=== PATIENT | male | born 1945 | race Caucasian/White ===

== ENCOUNTER → 2017-11-25 | Outpatient (CLI) | payer MEDICARE | LOC: M PLARAD 10:21 | DX: C34.11 Malignant neoplasm of upper lobe, right bronchus or lung (principal) | CPT/HCPCS: 78815 ==

== ENCOUNTER 2019-01-05 17:22 | Emergency (ER) | payer OTHER, MEDICARE ==
[~2019-01-05] VITALS: Ht 172.7 cm; Wt 91.5 kg
[2019-01-05] MEDS ORDERED: ASPI81CH33 PO (17:47)
[2019-01-05] MEDS ORDERED: ALBU83IN INH (17:47)
[2019-01-05] MEDS ORDERED: DICL1GEL3 TOP (17:47)
[2019-01-05] MEDS ORDERED: BUPR15TASR PO (17:47)
[2019-01-05] MEDS ORDERED: SYMB16INH INH (17:47)
[2019-01-05] MEDS ORDERED: THEO400T4 PO (17:58)
[2019-01-05] MEDS ORDERED: METO1TAB7 PO (17:58)
[2019-01-05] MEDS ORDERED: SPIR1CAP INH (17:58)
[2019-01-05] MEDS ORDERED: TERA2CAP3 PO (17:58)
[2019-01-05] MEDS ORDERED: ROSU20TA4 PO (17:58)
[2019-01-05] MEDS ORDERED: MONT10TA2 PO (17:58)
[2019-01-05] MEDS ORDERED: ENAL20TA PO (17:58)
[2019-01-05] MEDS ORDERED: HYDR12.55 PO (17:58)
[2019-01-05] MEDS ORDERED: METH75TA PO (17:58)
[2019-01-05] MEDS ORDERED: PRIM50TA6 PO (17:58)
[2019-01-05] MEDS ORDERED: HYDR-4514 PO (17:58)
[2019-01-05] MEDS ORDERED: FLUO0.0216 TOP (17:58)
[2019-01-05] MEDS ORDERED: UREA20CR4 EX (17:58)
[2019-01-05 18:22] LABS: BASO % 0.5 % (0.0-1.0); EOS # 0.3 10^3/uL (0.0-0.50); EOS % 3.5 % (0.0-3.0); HEMATOCRIT 38.5 % (42.0-52.0); HEMOGLOBIN 12.9 g/dl (13.5-17.5); LYMPH # 1.2 10^3/uL (1.5-4.5); LYMPH % 15.9 % (24.0-44.0); MEAN CORPUSCULAR HEMOGLOBIN 31.1 pg (27.0-33.0); MEAN CORPUSCULAR HGB CONC 33.5 g/dl (32.0-36.5); MEAN CORPUSCULAR VOLUME 92.8 fl (80.0-96.0); MONO # 0.8 10^3/uL (0.0-0.8); MONO % 10.9 % (0.0-5.0); NEUTROPHILS # 5.1 10^3/uL (1.8-7.7); NEUTROPHILS % 68.8 % (36.0-66.0); PLATELET COUNT, AUTOMATED 146 10^3/uL (150-450); RED BLOOD COUNT 4.15 10^6/uL (4.30-6.10); WHITE BLOOD COUNT 7.4 10^3/uL (4.0-10.0)
[2019-01-05 18:39] LABS: INR 0.97; PARTIAL THROMBOPLASTIN TIME 26.9 SECONDS (25.4-37.6)
[2019-01-05 18:48] LABS: CALCIUM LEVEL 7.9 MG/DL (8.8-10.2); CREATININE FOR GFR 2.04 MG/DL (0.70-1.30); GLOMERULAR FILTRATION RATE 34.4 (>42)
--- NOTE | 2019-01-05 19:17 | REPVR ---
EXAM: US Duplex Right Upper Extremity Veins, Limited EXAM DATE/TIME: 01/05/2019 6:33 PM CLINICAL HISTORY: 73 years old, male; Pain; Leg, upper; Right; Additional info: Swelling pain lower leg TECHNIQUE: Imaging protocol: Real-time Duplex ultrasound of the Right Upper Extremity with 2-D aguilar scale, color Doppler flow and spectral waveform analysis. Limited exam focused on the right upper extremity veins. COMPARISON: No relevant prior studies available. FINDINGS: Right deep veins: Unremarkable. Axillary and brachial veins are patent throughout without thrombus. Normal Doppler waveforms. Normal compressibility and/or augmentation response. Visualized internal jugular and subclavian veins are patent. Right superficial veins: Unremarkable. Visualized cephalic and basilic veins are patent without thrombus. Soft tissues: Unremarkable. IMPRESSION: No acute findings. No evidence of deep vein thrombosis. Electronically signed by: Mervat Friedman On 01/05/2019 19:17:08 PM
[2019-01-05 19:45] VITALS: BP 142/73
--- NOTE | 2019-01-07 06:56 | ECGEPIP ---
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 Order Number: [id number] Reading MD: Bora Root Measurements Intervals [place] Rate: 90 P: [place]: 0 QRS: 64 QRSD: 94 T: 52 QT: 336 QTc: 413 Interpretive Statements SINUS RHYTHM WITH FREQUENT ATRIAL PREMATURE COMPLEXES ECTOPY NEW COMPARED TO 08/20/13 Electronically Signed On 01-07-2019 6:56:16 EDT by Bora Root
== END 2019-01-05 19:49 | disposition home or self-care (01) ==
LOC: M ED 17:22
DX: R60.0 Localized edema (principal); I10 Essential (primary) hypertension; J44.9 Chronic obstructive pulmonary disease, unspecified; G47.30 Sleep apnea, unspecified; E78.00 Pure hypercholesterolemia, unspecified; F33.9 Major depressive disorder, recurrent, unspecified; F41.9 Anxiety disorder, unspecified; Z79.899 Other long term (current) drug therapy; Z79.82 Long term (current) use of aspirin; Z88.1 Allergy status to other antibiotic agents; Z88.2 Allergy status to sulfonamides; Z87.891 Personal history of nicotine dependence

== ENCOUNTER 2019-12-30 10:19 | Inpatient (IN) | payer OTHER ==
[~2019-12-30] VITALS: Ht 172.7 cm; Wt 86.4 kg
[~2019-12-30 10:19] MED LIST: ALBU83IN INH; ASPI81CH33 PO; BUPR15TASR PO; DICL1GEL3 TOP; ENAL20TA PO; FLUO0.0216 TOP; HYDR-4514 PO; HYDR12.55 PO; METH750T2 PO; METO1TAB7 PO; MONT10TA4 PO; PRIM50TA6 PO; ROSU20TA5 PO; SPIR1CAP INH; SYMB16INH INH; TERA2CAP3 PO; THEO400T4 PO; UREA20CR4 EX
[2019-12-30] MEDS ORDERED: METOPROLOL SUCC (TopROL XL) 50MG **XL** TAB PO ONE (10:45)
[2019-12-30] MEDS ORDERED: methylPREDNISolone INJ 125 MG/2 ML VIAL (J2930) IV ONE (11:00)
[2019-12-30] MEDS: COMBIVENT RESPIMAT 100-20MCG INHALER 4GM INH SCH ×3 (11:00→19:27)
[2019-12-30] MEDS ORDERED: IPRATROPIUM 0.5MG/ALBUTEROL 2.5MG INH SOL UD 3ML (DUONEB)(J7620) NEB ONE (11:00)
[2019-12-30 11:05] LABS: BASO % 0.1 % (0.0-1.0); EOS # 0.1 10^3/uL (0.0-0.5); EOS % 0.8 % (0.0-3.0); HEMOGLOBIN 14.8 g/dl (13.5-17.5); LYMPH # 0.6 10^3/uL (1.5-5.0); LYMPH % 7.8 % (24.0-44.0); MEAN CORPUSCULAR HEMOGLOBIN 31.4 pg (27.0-33.0); MEAN CORPUSCULAR HGB CONC 31.5 g/dl (32.0-36.5); MEAN CORPUSCULAR VOLUME 99.6 fl (80.0-96.0); MONO # 0.7 10^3/uL (0.0-0.8); MONO % 9.1 % (0.0-5.0); NEUTROPHILS # 6.3 10^3/uL (1.5-8.5); NEUTROPHILS % 81.7 % (36.0-66.0); PLATELET COUNT, AUTOMATED 191 10^3/uL (150-450); RED BLOOD COUNT 4.72 10^6/uL (4.30-6.10); WHITE BLOOD COUNT 7.7 10^3/uL (4.0-10.0)
[2019-12-30 11:15] LABS: INR 1.02; PROTHROMBIN TIME 13.1 SECONDS (11.8-14.0)
--- NOTE | 2019-12-30 11:23 | REP ---
PORTABLE CHEST X-RAY: Single view. HISTORY: Dyspnea and cough. Comparison study August 20, 2013. FINDINGS: Monitoring electrodes overlie the chest. A right sided ventriculoperitoneal shunt catheter is again seen coursing over the right chest. There is a granulomatous calcification along the right lateral chest wall. There are areas of pleural thickening again noted bilaterally. There are old healed rib fractures anteriorly on the left. The heart is not enlarged. No acute infiltrate is seen. No pleural effusion seen. Pulmonary vasculature is not increased. IMPRESSION: No active cardiopulmonary disease. Electronically Signed by Chris Dietz MD 12/30/2019 12:57 P
[2019-12-30 11:37] LABS: ALBUMIN 3.3 GM/DL (3.2-5.2); BILIRUBIN,DIRECT 0.2 MG/DL (0.0-0.2); BILIRUBIN,TOTAL 0.3 MG/DL (0.2-1.0); C REACTIVE PROTEIN QUANTITATIV 3.31 MG/DL (0.00-0.30); CALCIUM LEVEL 8.6 MG/DL (8.8-10.2); CK-MB VALUE MASS 2.4 NG/ML (<3.6); CREATININE FOR GFR 1.46 MG/DL (0.70-1.30); GLOMERULAR FILTRATION RATE 50.5 (>42); MB/CK RELATIVE INDEX 6.15 (< OR =4); POTASSIUM SERUM 3.8 MEQ/L (3.5-5.1); THYROID STIMULATING HORMONE 1.49 uIU/ML (0.358-3.740); TOTAL PROTEIN 6.9 GM/DL (6.4-8.2); TROPONIN I 0.03 NG/ML (< 0.10)
[2019-12-30] MEDS ORDERED: ACETAMINOPHEN TAB 650MG DOSE (2X325MG) PO PRN (12:00)
[2019-12-30 12:05] LABS: VENOUS BASE EXCESS 8.9 (-2.0-2.0); VENOUS HCO3 37.6 MEQ/L (23.0-27.0); VENOUS O2 SATURATION 61.5 % (60.0-80.0); VENOUS PARTIAL PRESSURE CO2 69.6 mmHg (38.0-50.0); VENOUS PARTIAL PRESSURE O2 32.6 mmHg (30.0-50.0); VENOUS PH 7.351 UNITS (7.330-7.430); VENOUS STANDARD HCO3 31.6 MEQ/L; VENOUS TOTAL CO2 39.8 MEQ/L (24.0-28.0)
[2019-12-30] MEDS ORDERED: NORC1TAB5 PO (12:42)
[2019-12-30] MEDS ORDERED: [UNRECOGNIZED DRUG - CODE] INH (12:42)
[2019-12-30] MEDS ORDERED: VENTAER INH (12:42)
[2019-12-30] MEDS ORDERED: VITA50005 PO (12:42)
[2019-12-30] MEDS ORDERED: FLUO1CRE2 TOP (12:42)
[2019-12-30] MEDS ORDERED: PATIENT COMMENT (12:44)
[2019-12-30 13:25] VITALS: BP 150/90
[2019-12-30] MEDS ORDERED: NS 1,000 ML IV SCH (13:30)
--- NOTE | 2019-12-30 14:20 | REP ---
REASON FOR EXAM: Pain and swelling. DEEP VENOUS ULTRASONOGRAPHY BILATERAL THIGH, RULE OUT DVT: TECHNIQUE: Multiple ultrasonographic images of the deep venous structures of the thigh were obtained from the common femoral vein to the popliteal vein along with Doppler interrogation and color flow Doppler images. FINDINGS: There is no abnormal echogenic material seen within any of the visualized deep venous structures that would suggest acute thrombosis. Coaptation is unremarkable throughout. Doppler interrogation shows an expected response to respiratory variability and augmentation. The color flow images show what appears to be a normal vascular pattern throughout. IMPRESSION: There is no ultrasonographic evidence of deep venous thrombosis involving any of the visualized deep venous structures of the bilateral thigh, as described above. Electronically Signed by Ryan Porter DO 12/30/2019 02:22 P
--- NOTE | 2019-12-30 14:36 | HPE ---
DATE OF ADMISSION: 12/30/2019 CHIEF COMPLAINT: Shortness of breath. HISTORY OF PRESENTING ILLNESS: This is a 74-year-old male with history of right lung tumor treated with radiation, hypertension, brain aneurysm status post intracranial hemorrhage, 17 pound weight loss and decreased appetite, shortness of breath for the past 3 weeks. The patient says that he has been feeling down for the past 3 weeks and has not been eating well with a 17 pound weight loss in the past 1-1/2 months. He continues to smoke and is a heavy smoker, a pack a day, unable to sleep, but not eating well. The patient denied any nonsteroidal anti-inflammatory drug (NSAID) use. Denies Aleve, ibuprofen, or Naprosyn at home. He also denied any diarrhea or vomiting. In the emergency room (ER), he was found to be hypoxic, 84%, with wheezing. Chest x-ray was negative for acute pneumonia. Respiratory panel was also ordered in light of the COVID-19. However, patient denies any fever, chills, cough at home. Despite nebulizer treatment, he has had no improvement. He decided to come into the hospital due to worsening symptoms, particularly because of not feeling well and decreased appetite and strength, feeling generalized weakness. Patient otherwise denies nausea or vomiting, diarrhea, diaphoresis, chest pain, pressure or tightness. He is short of breath and says that he has been this way for a long time but worsened in the past 3 weeks with about 10-15 feet limited dyspnea on exertion. Patient does not have any lower extremity edema but he did find slight swelling. No history of pulmonary embolism (PE) or deep venous thrombosis (DVT) in the past. He was found to have acute kidney injury with creatinine of 1..4 due to decreased oral intake. He otherwise denies any difficulty starting a stream or having intermittent urinary flow. No history of BPH or prostate cancer. In the ER, he was afebrile, 84% on room air and he was found to have uncontrolled blood pressure, pressure of 186/96, given intravenous metoprolol with subsequent improvement to 130. With IV steroids and nebulizer, the patient's breathing has been stabilized and oxygen saturation is currently 94% on 2 liters nasal cannula. Hospitalist service was asked to admit for acute hypoxic respiratory failure, symptoms of depression and evaluation of patient's acute renal failure. PAST MEDICAL HISTORY: 1. Brain hemorrhage due to brain aneurysm. 2. Hypertension. 3. Ventriculoperitoneal (APPRENTICE MACHINIST OUTSIDE) shunt. 4. Tumor on the right lung status post radiation, no chemotherapy. 5. Chronic obstructive pulmonary disease (COPD). 6. 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 PAST SURGICAL HISTORY: 1. Right clavicular resection years ago. 2. Brain aneurysm with APPRENTICE MACHINIST OUTSIDE shunt in 2003. 3. Colonoscopy with tubular adenoma. 4. Umbilical hernia repair times two. ALLERGIES: To SULFA causing a rash. HOME MEDICATIONS: - albuterol as needed four times a day - bupropion 150 twice a day - vitamin D50 1000 units weekly - metoprolol 50 daily - montelukast 10 daily - primidone 75 three times a day - rosuvastatin 20 daily - Spiriva one inhale daily - fluorouracil cream topically - hydrocodone one tablet twice a day 10/325 - theophylline 400 mg daily SOCIAL HISTORY: Patient still smokes a pack a day, heavy smoker. Lives with a girlfriend at home. Recently lost his dog, which is a dachshund, which caused severe depression. REVIEW OF SYSTEMS: Per HPI; 12-point system otherwise negative. FAMILY HISTORY: Noncontributory due to advanced age. PHYSICAL EXAMINATION: 99.6, pulse 77, respiratory rate 32, blood pressure 168/84, 84% on room air, 93% to 94% 2 liters nasal cannula. Generally, patient is missing his front teeth. No jugular venous distention (JVD). No thyromegaly. Patient speaks in full sentences. No pallor. No icterus. Lungs are diminished. Patient has increase in AP diameter. Faint expiratory wheezing bilaterally. Heart: S1, S2, sinus rhythm. No murmurs, rubs, or gallops. Abdomen is soft, nontender, nondistended. Extremities: Trace pitting edema bilaterally. EKG: Sinus rhythm, ventricular rate of 83, without ST-T wave changes. White count 7.7, hemoglobin 14, hematocrit 47, platelet count 191, 81% neutrophils. Sodium 140, potassium 3.8, chloride 99, bicarbonate 36, BUN 22, creatinine 1.46, glucose 112, lactic acid 1.2, calcium 8.6, total bilirubin 0.3, direct bilirubin 0.2, AST 15, ALT 28, alkaline phosphatase 150, relative index 6.15, troponin 0.03, BNP 4257. Serology COVID-19 is negative. Chest x-ray: No acute cardiopulmonary disease. APPRENTICE MACHINIST OUTSIDE shunt again seen coursing over the right chest. Granulomatous calcification along the right lateral chest wall. ASSESSMENT AND PLAN: This is a 74-year-old male with history of chronic obstructive pulmonary disease, hypertension, history of brain aneurysm status post ventriculoperitoneal shunt due to hemorrhage, right lung tumor treated with four radiation treatments, tubular adenoma, presents to the emergency room with 3 week history of 17 pound weight loss, not feeling well for the past 3 weeks with worsening shortness of breath, decrease in appetite. Active issues are as follows: 1. COPD exacerbation. Improved with IV Solu-Medrol and nebulizer treatments. Currently on IV ceftriaxone, Bacid, supplemental oxygen to keep oxygen saturation at 88-92%. Chest x-ray has no acute cardiopulmonary process. CT chest has been obtained for further definition. Doppler's of lower extremity to rule out DVT. V/Q scan if possible to rule out PE. check theophylline level. 2. History of right lung cancer status post radiation times four treatments. Obtain records patient's primary care physician. 3. Acute hypoxic respiratory failure secondary to COPD exacerbation. No other signs of infection at this time. Possible slight fluid overload with elevated brain natriuretic peptide (BNP) most likely due to pulmonary hypertension or possible cor pulmonale. At this time, will obtain an echocardiogram, monitor intakes and outputs, daily weights, and place on fluid restriction. 4. Questionable cor pulmonale with elevated BNP. Most likely due to pulmonary hypertension. No overt edema that is noted on the x-ray. Monitor patient's creatinine with serial metabolic panel checks, strict intakes and outputs, daily weights, and renally dose all medications. 5. History of brain hemorrhage with APPRENTICE MACHINIST OUTSIDE shunt secondary to aneurysm rupture. Patient is followed by neurosurgery in [place]. Currently has stable. No mental status changes. APPRENTICE MACHINIST OUTSIDE shunt in place, appears to be working well. No fever or chills here. 6. Severe depression. Patient is open to seeing a psychiatrist. He currently does not have any suicidal tendency but has had decreased in appetite and some weight loss. Will check thyroid-stimulating hormone (TSH) level.on bupropion. 7. Acute Renal failure due to decreased oral intake. trial of ivfluids. renal us. strict i/o. avoid nsaids, renally dose meds. 8. Vitamin D deficiency. resume home vitamin d. 9, Tobacco abuse. cessation counselling. on bupropion. MTDD
[2019-12-30] MEDS: cefTRIAXone SOD 1 GM in D5W MINI-BAG PLUS 50 ML IV SCH (14:42)
[2019-12-30] MEDS: LACTOBACILLUS ACIDOPHILUS CAP (BACID) PO SCH ×3 (14:43→20:48)
--- NOTE | 2019-12-30 15:11 | REP ---
REASON FOR EXAM: Dyspnea. Preliminary report given in the patient's [facility] today at 1:18 p.m. We have been waiting for the prior examinations from the [facility] in [place], [place] for comparison to our exam today. Those prior exams dated 01/31/2019, 08/02/2018, and 12/28/2017 have all just been made available for review. In addition, older exams of 08/20/2013 and 07/27/2009, the only other two chest CTs, have also been reviewed at this time. The lack of intravenous contrast decreases the sensitivity of the exam. There has been no significant change in appearance of the mediastinum or pulmonary maliha compared to the latest prior exam. There is no evidence of a mass or adenopathy. There are no pleural or pericardial effusions. The imaged upper abdomen shows atrophic changes left kidney and a portion of a ventriculoperitoneal shunt catheter on the right, both essentially unchanged. Bone window technique throughout the exam shows old healed right rib fractures, status quo. Evaluation of the lung garg shows no significant change in the appearance of the band-like and spiculated density in the posterior segment of the right upper lobe, compared to the latest prior exam. In addition, heavy emphysematous changes are seen throughout the lung garg, status quo. Areas of pleural thickening and pleural calcific deposition are noted, status quo bilaterally. The pleural-based 1-cm sized nodule in the left lower lobe is stable. Other smaller stable pulmonary nodules are also noted. There is evidence of cylindrical bronchiectasis, status quo. There is an asymmetric 1.6-cm sized density in the inferior-most lingula, which is stable. No definite new abnormal nodules, masses, or opacities have developed since the latest prior exam. IMPRESSION: Chronic lung field changes, as described above. Other findings and exam limitations, as described above. Electronically Signed by Ryan Porter DO 12/30/2019 04:17 P
--- NOTE | 2019-12-30 15:19 | REP ---
V/Q SCAN: Following the intravenous administration of 5.5 millicuries technetium 99m tagged MAA and the inhalation of 1.0 millicuries technetium 99m DTPA aerosol, multiple images of the lung garg are obtained in various projections. There is scattered heterogeneous ventilation of both lungs with some central deposition of radiotracer in the airways compatible with COPD. Non-segmental perfusion defects in the lung apices bilaterally demonstrate larger ventilation defects. There are no definite areas of V/Q mismatch. IMPRESSION: Low probability of pulmonary embolism. Electronically Signed by Kuldip Herrera MD 12/30/2019 03:44 P
[2019-12-30] MEDS ORDERED: ANEXSIA, NORCO 7.5MG/325MG TABLET(HYDROCODONE/APAP) PO PRN (17:00)
[2019-12-30] MEDS ORDERED: PILL CUTTER 1 EACH XX PRN (17:45)
[2019-12-30] MEDS: methylPREDNISolone INJ 125 MG/2 ML VIAL (J2930) IV SCH (17:46)
--- NOTE | 2019-12-30 18:00 | ECHO ---
DATE OF STUDY: 12/30/2019 REFERRING PHYSICIAN: Dr. Dee Caruso INDICATION: Dyspnea. HEIGHT: 173 cm WEIGHT: 82 kg 2D MEASUREMENTS: Aortic annulus: 2.2 cm Aortic root: 3.3 cm Left atrium: 2.8 cm Ventricular septum: 0.14 cm Posterior wall: 1.11 cm Left ventricle diastole: 4.5 cm Inferior vena cava: 2.1 cm (more than 50% respiratory variation) DOPPLER MEASUREMENTS: Aortic valve velocity: 157 cm/s No aortic stenosis. No aortic regurgitation. LVOT velocity: 124 cm/s LVOT VTI: 21.5 cm No mitral regurgitation. No mitral stenosis. Mitral E velocity: 75.0 cm/s Mitral A velocity: 67.3 cm/s Mitral deceleration time: 289 ms Very mild tricuspid regurgitation. Estimated right ventricle systolic pressure: 52-57 mmHg assuming right atrial pressure of 5-10 mmHg. Pulmonary acceleration time: 102 ms MITRAL ANNULAR TISSUE DOPPLER: E prime septal: 7.8 cm/s DESCRIPTION: Rhythm was sinus. This is a moderately technically difficult echocardiogram. This is a 2D, M-mode, color flow Doppler, and pulse wave Doppler examination including mitral annular tissue Doppler. CONCLUSIONS: 1. Suggestive of moderate elevation of estimated right ventricle systolic pressure (52-57 mmHg). Suggestive of normal central venous pressure (5-10 mmHg). Appearance of mild right ventricle dilatation. Normal right ventricle systolic function. Probably mild right atrial dilatation by visual assessment. 2. Normal left ventricle internal dimensions and wall thickness. Normal regional LV wall motion and wall thickening. Normal LV systolic function. Normal LV diastolic function. 3. Tiny pericardial effusion (circumferential). 4. Otherwise, normal-appearing echocardiogram Doppler findings.
[2019-12-30 18:46] LABS: CK-MB VALUE MASS 1.5 NG/ML (<3.6); MB/CK RELATIVE INDEX 4.69 (< OR =4); TROPONIN I 0.02 NG/ML (< 0.10)
[2019-12-30 18:52] LABS: THEOPHYLLINE LEVEL 3.7 UG/ML (10.0-20.0)
[2019-12-30 19:30] VITALS: O2SAT 94
[2019-12-30] MEDS: ROSUVASTATIN 10 MG TAB (CRESTOR) PO SCH (20:48)
[2019-12-30] MEDS: PRIMIDONE 50 MG TAB PO SCH (20:48)
[2019-12-30] MEDS: buPROPion **SR TABLET** (ZYBAN) 150MG PO SCH (20:48)
[2019-12-30] MEDS: HEPARIN SOD (PORCINE) 5000UNITS/ML VIAL (J1644 PER 1000UNITS) SC SCH (20:49)
[2019-12-30 22:00] VITALS: BP 132/76
--- NOTE | 2019-12-30 22:51 | ECGEPIP ---
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
[2019-12-31] MEDS: methylPREDNISolone INJ 125 MG/2 ML VIAL (J2930) IV SCH ×4 (00:17→17:56)
[2019-12-31] MEDS: COMBIVENT RESPIMAT 100-20MCG INHALER 4GM INH SCH ×7 (00:23→23:30)
[2019-12-31 06:00] VITALS: BP 133/77
[2019-12-31] MEDS: TIOTROPIUM INHALER/CAPSULE (SPIRIVA) INH SCH (07:27)
[2019-12-31 07:56] LABS: BASO % 0.3 % (0.0-1.0); HEMATOCRIT 45.8 % (42.0-52.0); HEMOGLOBIN 13.9 g/dl (13.5-17.5); LYMPH # 0.4 10^3/uL (1.5-5.0); LYMPH % 6.5 % (24.0-44.0); MEAN CORPUSCULAR HEMOGLOBIN 31.3 pg (27.0-33.0); MEAN CORPUSCULAR HGB CONC 30.3 g/dl (32.0-36.5); MEAN CORPUSCULAR VOLUME 103.2 fl (80.0-96.0); MONO # 0.3 10^3/uL (0.0-0.8); MONO % 4.4 % (0.0-5.0); NEUTROPHILS # 5.1 10^3/uL (1.5-8.5); NEUTROPHILS % 87.9 % (36.0-66.0); PLATELET COUNT, AUTOMATED 183 10^3/uL (150-450); RED BLOOD COUNT 4.44 10^6/uL (4.30-6.10); WHITE BLOOD COUNT 5.9 10^3/uL (4.0-10.0)
[2019-12-31 08:04] LABS: ALBUMIN 2.9 GM/DL (3.2-5.2); ALT/SGPT 28 U/L (12-78); BILIRUBIN,TOTAL 0.2 MG/DL (0.2-1.0); BLOOD UREA NITROGEN 30 MG/DL (7-18); C REACTIVE PROTEIN QUANTITATIV 3.02 MG/DL (0.00-0.30); CALCIUM LEVEL 8.2 MG/DL (8.8-10.2); CARBON DIOXIDE LEVEL 36 MEQ/L (21-32); CHLORIDE LEVEL 105 MEQ/L (98-107); CHOLESTEROL LEVEL 112 MG/DL (<200); CK-MB VALUE MASS 1.8 NG/ML (<3.6); CPK CREATINE PHOSPHOKINASE 51 U/L (39-308); CREATININE FOR GFR 1.41 MG/DL (0.70-1.30); GLOMERULAR FILTRATION RATE 52.6 (>42); GLUCOSE, FASTING 121 MG/DL (70-100); HDL CHOLESTEROL 40 MG/DL (>40); LDL CHOLESTEROL 51 MG/DL (<100); MB/CK RELATIVE INDEX 3.53 (< OR =4); NON-HDL-C 72 MG/DL; NT-PRO BNP 2843 PG/ML (<125); SODIUM LEVEL 143 MEQ/L (136-145); TOTAL PROTEIN 6.3 GM/DL (6.4-8.2); TRIGLYCERIDES LEVEL 107 MG/DL (<150); TROPONIN I < 0.02 NG/ML (< 0.10)
[2019-12-31 08:20] LABS: ERYTHROCYTE SEDIMENTATION RATE 17 mm/hr (0-20)
[2019-12-31] MEDS: PRIMIDONE 50 MG TAB PO SCH ×3 (08:54→21:31)
[2019-12-31] MEDS: THEOPHYLLINE (THEO-24) 100MG SR **CAPSULE PO SCH (08:54)
[2019-12-31] MEDS: buPROPion **SR TABLET** (ZYBAN) 150MG PO SCH ×2 (08:54→21:30)
[2019-12-31] MEDS: METOPROLOL SUCC (TopROL XL) 50MG **XL** TAB PO SCH (08:54)
[2019-12-31] MEDS: HEPARIN SOD (PORCINE) 5000UNITS/ML VIAL (J1644 PER 1000UNITS) SC SCH ×2 (08:55→21:31)
[2019-12-31] MEDS: LACTOBACILLUS ACIDOPHILUS CAP (BACID) PO SCH ×4 (08:55→21:30)
[2019-12-31] MEDS: cefTRIAXone SOD 1 GM in D5W MINI-BAG PLUS 50 ML IV SCH (12:59)
[2019-12-31 14:00] VITALS: BP 133/73
[2019-12-31] MEDS: ROSUVASTATIN 10 MG TAB (CRESTOR) PO SCH (21:30)
[2019-12-31 22:00] VITALS: BP 148/88
[2020-01-01] MEDS: methylPREDNISolone INJ 125 MG/2 ML VIAL (J2930) IV SCH ×4 (00:31→17:50)
[2020-01-01] MEDS: COMBIVENT RESPIMAT 100-20MCG INHALER 4GM INH SCH ×6 (03:01→23:38)
[2020-01-01 06:00] VITALS: BP 135/82
[2020-01-01] MEDS: TIOTROPIUM INHALER/CAPSULE (SPIRIVA) INH SCH (07:37)
[2020-01-01] MEDS: HEPARIN SOD (PORCINE) 5000UNITS/ML VIAL (J1644 PER 1000UNITS) SC SCH ×2 (08:27→20:25)
[2020-01-01 08:28] VITALS: BP 133/59
[2020-01-01] MEDS: THEOPHYLLINE (THEO-24) 100MG SR **CAPSULE PO SCH (08:28)
[2020-01-01] MEDS: buPROPion **SR TABLET** (ZYBAN) 150MG PO SCH ×2 (08:28→20:25)
[2020-01-01] MEDS: LACTOBACILLUS ACIDOPHILUS CAP (BACID) PO SCH ×4 (08:28→20:25)
[2020-01-01] MEDS: METOPROLOL SUCC (TopROL XL) 50MG **XL** TAB PO SCH (08:28)
[2020-01-01] MEDS: PRIMIDONE 50 MG TAB PO SCH ×3 (08:28→20:25)
[2020-01-01 08:50] LABS: BASO % 0.2 % (0.0-1.0); EOS % 0.2 % (0.0-3.0); HEMATOCRIT 42.7 % (42.0-52.0); HEMOGLOBIN 13.3 g/dl (13.5-17.5); LYMPH # 0.2 10^3/uL (1.5-5.0); LYMPH % 3.5 % (24.0-44.0); MEAN CORPUSCULAR HEMOGLOBIN 32.1 pg (27.0-33.0); MEAN CORPUSCULAR HGB CONC 31.1 g/dl (32.0-36.5); MEAN CORPUSCULAR VOLUME 103.1 fl (80.0-96.0); MONO # 0.2 10^3/uL (0.0-0.8); MONO % 3.2 % (0.0-5.0); NEUTROPHILS # 5.3 10^3/uL (1.5-8.5); NEUTROPHILS % 92.7 % (36.0-66.0); PLATELET COUNT, AUTOMATED 172 10^3/uL (150-450); RED BLOOD COUNT 4.14 10^6/uL (4.30-6.10); WHITE BLOOD COUNT 5.7 10^3/uL (4.0-10.0)
[2020-01-01 09:12] LABS: C REACTIVE PROTEIN QUANTITATIV 1.41 MG/DL (0.00-0.30); CALCIUM LEVEL 7.9 MG/DL (8.8-10.2); CK-MB VALUE MASS 1.5 NG/ML (<3.6); CREATININE FOR GFR 1.53 MG/DL (0.70-1.30); GLOMERULAR FILTRATION RATE 47.9 (>42); MB/CK RELATIVE INDEX 4.69 (< OR =4); POTASSIUM SERUM 4.3 MEQ/L (3.5-5.1); TROPONIN I 0.02 NG/ML (< 0.10)
[2020-01-01 09:19] LABS: ERYTHROCYTE SEDIMENTATION RATE 13 mm/hr (0-20)
[2020-01-01] MEDS: cefTRIAXone SOD 1 GM in D5W MINI-BAG PLUS 50 ML IV SCH (12:25)
--- NOTE | 2020-01-01 12:55 | IPN ---
DATE: 12/31/2019 Patient says his breathing is much better. He is saturating 93-96% on 4 liters nasal cannula. Was 84% on room air on admission on intravenous (IV) Solu-Medrol. No cough, fever, chills. Patient says that he slept well, his mood is slightly better, and his appetite is back. Ate his breakfast without any trouble this morning. "I was hungry." Patient denies any suicidal ideation, plan, or homicidal tendencies. Temperature 98, pulse 81, respiratory rate 20, blood pressure 133/77, 96% on 4 liters nasal cannula. Generally: Patient is awake, alert, oriented to person, place, and time. Answering questions appropriately. No jugular venous distention (JVD). No thyromegaly. Lungs: Diminished with bilateral wheezing noted. Heart: S1, S2, sinus rhythm. Abdomen: Obese, soft, nontender, and nondistended. Extremities: Chronic 1+ edema. LABORATORY DATA: White count 5.9, hemoglobin 13, hematocrit 45, platelet count 183. Sodium 143, potassium 5, chloride 105, bicarbonate 36, BUN 30, creatinine 1.41, glucose of 121. BNP 2843. Troponin less than 0.02. Microbiology: Respiratory panel 12/31/2019 negative. Two sets of blood cultures negative. V/Q scan: Low probably pulmonary embolism (PE). Vascular ultrasound of lower extremities: No deep venous thrombosis (DVT). Chest CT: Chronic lung changes. Heavy emphysematous changes seen throughout the lungs with pleural thickening. Pleural based 1 cm size nodule left lower lobe. ASSESSMENT AND PLAN: This is a 74-year-old male with history of right lung cancer status post radiation, hypertension, brain aneurysm with intracranial hemorrhage, 17-pound weight loss, decreased, appetite, who presented with shortness of breath for 3 weeks with wheezing. [place] that his mood was down after his dog had with decrease in appetite. Patient is admitted for chronic obstructive pulmonary disease (COPD) exacerbation. CURRENT ISSUES: 1. Acute chronic obstructive pulmonary disease exacerbation, currently on nebulizer treatment, Solu-Medrol, IV ceftriaxone, Bacid, and supplemental oxygen to keep saturation 88-92%. Patient had no evidence of DVT or PE on exam. 2. Acute hypoxic respiratory failure secondary to chronic obstructive pulmonary disease exacerbation. Currently with goal of 88-92%. 3. History of right lung cancer status post radiation times four treatments. Obtain records from outpatient primary care physician. Possible cor pulmonale with elevated brain natriuretic peptide (BNP). Patient's echocardiogram has been ordered. Result is not available as yet. 4. History of brain hemorrhage with ventriculoperitoneal (CIGAR HEAD PIERCER) shunt secondary to aneurysm rupture. Followed by neurosurgery in [place]. Appears to be working well with no fever or confusion. 5. Severe depression. Patient is agreeable to seeing a psychiatrist but says his mood has improved today. Does not wish to change any of his medications. Thyroid-stimulating hormone (TSH) was normal. 6. Acute kidney injury. Patient has some slight improvement but still has stage III renal failure. Monitor strict intake and output, daily weights, and fluid restriction. MTDD
[2020-01-01 14:00] VITALS: BP 140/73
[2020-01-01] MEDS: ROSUVASTATIN 10 MG TAB (CRESTOR) PO SCH (20:25)
[2020-01-01 22:00] VITALS: BP 157/84
[2020-01-02] MEDS: methylPREDNISolone INJ 125 MG/2 ML VIAL (J2930) IV SCH ×4 (00:26→17:49)
[2020-01-02] MEDS: COMBIVENT RESPIMAT 100-20MCG INHALER 4GM INH SCH ×6 (03:17→23:35)
[2020-01-02 06:00] VITALS: BP 131/80
[2020-01-02] MEDS: TIOTROPIUM INHALER/CAPSULE (SPIRIVA) INH SCH (07:28)
[2020-01-02] MEDS: METOPROLOL SUCC (TopROL XL) 50MG **XL** TAB PO SCH (08:47)
[2020-01-02] MEDS: HEPARIN SOD (PORCINE) 5000UNITS/ML VIAL (J1644 PER 1000UNITS) SC SCH ×2 (08:48→20:41)
[2020-01-02] MEDS: LACTOBACILLUS ACIDOPHILUS CAP (BACID) PO SCH ×4 (08:48→20:41)
[2020-01-02] MEDS: THEOPHYLLINE (THEO-24) 100MG SR **CAPSULE PO SCH (08:48)
[2020-01-02] MEDS: PRIMIDONE 50 MG TAB PO SCH ×3 (08:48→20:41)
[2020-01-02] MEDS: buPROPion **SR TABLET** (ZYBAN) 150MG PO SCH ×2 (08:48→20:41)
[2020-01-02] MEDS: cefTRIAXone SOD 1 GM in D5W MINI-BAG PLUS 50 ML IV SCH (12:44)
[2020-01-02 14:00] VITALS: BP 133/67
--- NOTE | 2020-01-02 14:19 | IPN ---
DATE: 01/01/2020 Patient says his breathing is better. No paroxysmal nocturnal dyspnea orthopnea. No fever or chills. The patient has a dry cough with slight dyspnea on exertion but improved. Temperature 97.3, pulse 65, respiratory rate 18, blood pressure 133/59, 90% 2 liters nasal cannula. Generally, patient is awake, alert, oriented. No conversational dyspnea. No cyanosis. No jugular venous distention (JVD) or thyromegaly. No jaundice. No use of respiratory accessory muscles. The lungs are diminished with bilateral wheezing. Heart: S1, S2, sinus rhythm. Abdomen is obese, soft, nontender, nondistended. Positive bowel sounds. Extremities: Chronic trace 1+ pitting edema bilaterally. LABORATORY DATA: White count 5.7, hemoglobin 13, hematocrit 42, platelet count 172. Sodium 145, potassium 4.2, chloride 103, bicarbonate 37, BUN 29, creatinine 1.53, previous creatinine 1.41, glucose 160. Troponin 0.02, BNP 1670. Respiratory panel negative. Two sets of blood cultures negative. ASSESSMENT/PLAN: 74-year-old male with history of right lung cancer status post radiation and hypertension, brain aneurysm with intracranial hemorrhage, 17-poiund weight loss, increased appetite presented with worsening shortness of breath for the past 3 weeks with diminished breath sounds, bilateral wheezing on exam. Patient is admitted for acute chronic obstructive pulmonary disease (COPD) exacerbation, improving clinically. IMPRESSION: 1. Acute COPD exacerbation currently on supplemental oxygen, Solu-Medrol, IV ceftriaxone, Bacid. No evidence of pulmonary embolus (PE), deep venous thrombosis (DVT) on physical exam. CT chest shows chronic lung changes with band-like spiculated density posterior segment of right upper lobe without any change. Heavy emphysema seen throughout the lung garg. Pleural thickening and pleural calcific deposition. V/Q scan was low probability PE. Venous Dopplers bilateral lower extremity shows no DVT. 2. History of right lung cancer status post radiation times four treatments. Outpatient followup with his medical oncologist. Patient continues to have abnormal CT chest findings. 3. Acute hypoxic respiratory failure secondary to COPD exacerbation. Continued on supplemental oxygen for saturation goal of 88-92%. 4. History of brain hemorrhage with UTILITY TECHNICIAN shunt secondary to aneurysm rupture followed by neurosurgery in [place]. No acute issues. 5. Severe depression. Mood is improved. 6. Acute kidney injury on chronic kidney disease currently at baseline creatinine. MTDD
[2020-01-02] MEDS: ROSUVASTATIN 10 MG TAB (CRESTOR) PO SCH (20:41)
[2020-01-02 22:00] VITALS: BP 176/89
[2020-01-03] MEDS: methylPREDNISolone INJ 125 MG/2 ML VIAL (J2930) IV SCH ×3 (00:07→12:17)
[2020-01-03] MEDS: COMBIVENT RESPIMAT 100-20MCG INHALER 4GM INH SCH ×3 (02:59→11:23)
[2020-01-03 06:00] VITALS: BP 154/89
[2020-01-03] MEDS: TIOTROPIUM INHALER/CAPSULE (SPIRIVA) INH SCH (07:14)
[2020-01-03] MEDS: LACTOBACILLUS ACIDOPHILUS CAP (BACID) PO SCH (08:34)
[2020-01-03] MEDS: buPROPion **SR TABLET** (ZYBAN) 150MG PO SCH (08:34)
[2020-01-03] MEDS: THEOPHYLLINE (THEO-24) 100MG SR **CAPSULE PO SCH (08:34)
[2020-01-03] MEDS: METOPROLOL SUCC (TopROL XL) 50MG **XL** TAB PO SCH (08:34)
[2020-01-03] MEDS: PRIMIDONE 50 MG TAB PO SCH (08:35)
[2020-01-03] MEDS: HEPARIN SOD (PORCINE) 5000UNITS/ML VIAL (J1644 PER 1000UNITS) SC SCH (08:35)
[2020-01-03] MEDS ORDERED: PRED10TA2 PO (09:52)
--- NOTE | 2020-01-03 13:27 | DS.PDOC ---
Discharge Summary General Date of Admission December 30, 2019 at 11:56 Date of Discharge 01/03/2020 Discharge Summary PROCEDURES PERFORMED DURING STAY: [None]. 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 Emergence room. Patient was found to be hypoxic, saturating 84% room air. Physical head revealed diffuse wheezing. Respiratory panel was completed and was negative for any viral infections. A COVID19 PCR was completed and was negative. Patient was admitted to hospitalist service for further evaluation and treatment of suspected COPD exacerbation. HOSPITAL COURSE: Acute COPD exacerbation - Continue patient's breathing has improved significantly from the point of arrival to the emergency room - Patient reports using 2 L nasal cannula at baseline. Currently, he saturating well on his baseline level of oxygen - Physical reveals very faint wheezing - Blood cultures 12/29; respiratory panel. 12/30; COVID 19 - remain negative - CXR 12/29: No active cardiopulmonary disease. - Chest CT 12/29: Chronic lung field changes, as described above. Other findings and exam limitations, as described above. - Duplex US 12/29: There is no ultrasonographic evidence of deep venous thrombosis involving any of the visualized deep venous structures of the bilateral thigh, as described above. - Lung VQ scan 12/29: Low probability of pulmonary embolism. - Will DC solumedrol; will start prednisone taper - c/w inhaled therapy as ordered History of right lung cancer - s/p Radiation - Discussed with patient findings of CT scan imaging - She reports that he follows with [facility] pulmonology; advised patient that he should continue follow-up with him as an outpatient Acute hypoxic respiratory failure 2/2 COPD exacerbation - c/w supplemental oxgyen on discharge to maintain saturation goal of 88-92%. 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 ALLERGIES: Please see below. PHYSICAL EXAMINATION ON DISCHARGE: Vitals (See below) General: Lying in bed, appears comfortable, AAOx3 HEENT: NC, AT CVS: +S1S2 Lungs: Fair air entry b/l, faint expiratory wheezing noted bilaterally. No rhonchi or crackles Abdomen: Soft, ND, NT Extremities: - Edema, - Calf tenderness LABORATORY DATA: Please see below. ACTIVITY: [As tolerated]. DISCHARGE PLAN: Follow-up with primary care provider and pulmonology at [facility] within 7 days Remain compliant with treatment plan and medications Return to the ER if you experience any problems DISPOSITION: Home with services DISCHARGE CONDITION: [Stable]. TIME SPENT ON DISCHARGE: 35 minutes. Vital Signs/I&Os Vital Signs Date Time Temp Pulse Resp B/P (MAP) Pulse Ox O2 Delivery O2 Flow Rate FiO2 01/03/20 11:10 91 Nasal Cannula 4.0 01/03/20 06:00 97.3 89 17 154/89 (110) I&O- Last 24 Hours up to 6 AM 01/03/20 06:00 Intake Total 1235 ml Output Total 1050 ml Balance 185 ml Microbiology Microbiology 12/31/19 Respiratory Virus Panel (PCR) (JARVIS) - Final, Complete 12/30/19 Blood Culture - Preliminary, Resulted No Growth after 72 hours. All specime... 12/30/19 Blood Culture - Preliminary, Resulted No Growth after 72 hours. All specime... Discharge Medications Scheduled Acetylcysteine (Acetylcysteine) 200 Mg/1 Ml Vial, 3 ML INH Q12H, (Reported) Bupropion HCl (Bupropion HCl Sr) 150 Mg Tab.er.12h, 150 MG PO BID, (Reported) Ergocalciferol (Vitamin D2) (Vitamin D2) 50,000 Units Cap, 50,000 UNITS PO QWEEK, (Reported) Fluorouracil (Fluorouracil) 5% 40GM Cream..g., 1 DOSE TOP DAILY, (Reported) APPLY TO ARMS MON - FRI Metoprolol Succinate (Metoprolol Succinate) 50 Mg Tab.er.24h, 50 MG PO DAILY, (Reported) Montelukast Sodium (Montelukast Sodium) 10 Mg Tablet, 10 MG PO QHS, (Reported) Prednisone (Prednisone) 10 Mg Tablet, 10 MG PO TAPER Take 4 tabs daily x 3 days, then 3 tabs daily x 3 days, then 2 tabs daily x 3 days, then 1 tab daily x 3 days and stop Primidone (Primidone) 50 Mg Tablet, 75 MG PO TID, (Reported) Rosuvastatin Calcium (Rosuvastatin Calcium) 20 Mg Tablet, 10 MG PO QHS, (Reported) Theophylline Anhydrous (Theophylline) 400 Mg Tab.er.24h, 400 MG PO DAILY, (Reported) Tiotropium [place] (Spiriva) 18 Mcg Cap.w.dev, 1 CAP INH DAILY, (Reported) Scheduled PRN Albuterol Sulf (Albuterol Sulfate) 2.5 Mg/3 Ml Vial.neb, 2.5 MG INH QID PRN for SHORTNESS OF BREATH, (Reported) Albuterol Sulfate (Ventolin Hfa) 18 Gm Hfa.aer.ad, 2 PUFFS INH QID PRN for SHORTNESS OF BREATH, (Reported) Hydrocodone/Acetaminophen ([place] 10-325 Tablet) 1 Each Tablet, 1 TAB PO BID PRN for PAIN, (Reported) Allergies Coded Allergies: Sulfa (Sulfonamide Antibiotics) (Verified Allergy, Unknown, "break out", 01/05/19) CON RODRIGUEZ MD January 03, 2020 13:27
--- NOTE | 2020-01-04 06:50 | IPN ---
DATE OF SERVICE: 01/02/2020 The patient says that he is feeling much better, ambulating well without dyspnea on exertion. He is still new to oxygen, but still desaturating down to 79% with ambulation. He is currently on Solu-Medrol 80 IV every 6 hours. Able to sleep well. Tolerating his diet. No chest pain, pressure or tightness. No cough. Temperature 98.1, pulse 86, respiratory rate 17, blood pressure 131/80, 92% on 2 liters nasal cannula. Generally, the patient is awake, alert, oriented times three, answering questions appropriately. No jugular venous distention (JVD), thyromegaly, or conversational dyspnea. The patient was ambulating from bed to the bathroom and returned to the bed for examination and appeared to be stable and not distressed. Lungs are diminished with faint expiratory wheezing. Heart: S1, S2, sinus rhythm. Abdomen is soft, nontender and nondistended. Positive bowel sounds times four quadrants. No rebound or guarding. No hepatosplenomegaly. No abdominal bruit. Extremities: Positive edema. LABORATORY DATA: White count 5.7, hemoglobin 13, hematocrit 42, platelet count 172. Sodium 145, potassium 4.2, chloride 103, bicarbonate 37, BUN 29, creatinine 1.53, glucose 160. BNP 1670. Troponin 0.02. Respiratory panel negative. Blood cultures negative. COVID-19 negative. VQ scan low probability. Venous ultrasound no deep vein thrombosis (DVT). Chest CT chronic changes. One cm sized left lower lobe nodule is stable. Other pulmonary nodules smaller and noted. There is evidence of bronchiectasis. No new abnormal nodules, masses or opacities. ASSESSMENT/PLAN: This is a 74-year-old male with history of right lung cancer status post radiation and hypertension, brain aneurysm with intracranial hemorrhage, who presented with 3 week history of worsening wheezing, shortness of breath and dyspnea on exertion and was feeling depressed after the of his dog with decrease in appetite and 17 pound weight loss admitted for evaluation of his respiratory distress and found to have acute chronic obstructive pulmonary disease (COPD) exacerbation. IMPRESSION: 1. Acute COPD exacerbation currently on IV Solu-Medrol, ceftriaxone and Bacid. Supplemental oxygen to keep O2 sat 88-92%. VQ scan was negative for pulmonary embolus (PE). 2. Acute hypoxic respiratory failure secondary to COPD exacerbation. Currently on supplemental oxygen with O2 goal of 88-92%. 3. History of right lung cancer status post radiation times four treatments. Echo has been ordered. 4. 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 5. Severe depression due to loss of his dog with 17 pound weight loss with decrease in appetite. The patient says that he is not suicidal or homicidal and agrees to see psychiatrist as outpatient if he worsens. 6. Acute kidney injury on chronic kidney disease stage III, currently at baseline creatinine. Renally dose medications. Strict ins and outs. Daily weights. DISPOSITION: Pending clinical improvement.
== END 2020-01-03 13:32 | disposition home health service (06) | DRG 189 ==
LOC: M ED 10:19 → M ED INP 11:56 → ENRESERV 12:54 → M MSPAV 13:17
PROVIDERS: ADMIT General Practice; ATTEND Internal Medicine
DX: J96.01 Acute respiratory failure with hypoxia (principal); J44.1 Chronic obstructive pulmonary disease with (acute) exacerbation; N17.9 Acute kidney failure, unspecified; N18.3 Chronic kidney disease, stage 3 (moderate); F32.9 Major depressive disorder, single episode, unspecified; I12.9 Hypertensive chronic kidney disease with stage 1 through stage 4 chronic kidney disease, or unspecified chronic kidney disease; G25.0 Essential tremor; Z85.118 Personal history of other malignant neoplasm of bronchus and lung; Z79.899 Other long term (current) drug therapy; Z88.2 Allergy status to sulfonamides; Z77.090 Contact with and (suspected) exposure to asbestos; Z98.2 Presence of cerebrospinal fluid drainage device; F17.200 Nicotine dependence, unspecified, uncomplicated; E55.9 Vitamin D deficiency, unspecified

== ENCOUNTER 2020-02-05 07:42 | Inpatient (IN) | payer OTHER ==
[~2020-02-05] VITALS: Ht 175.3 cm; Wt 82.9 kg
[~2020-02-05 07:42] MED LIST changes: +FLUO1CRE2 TOP; +NORC1TAB5 PO; +PATIENT COMMENT; +PRED10TA2 PO; +VENTAER INH; +VITA50005 PO; +[UNRECOGNIZED DRUG - CODE] INH
[2020-02-05] MEDS ORDERED: methylPREDNISolone INJ 125 MG/2 ML VIAL (J2930) IV ONE (08:00)
[2020-02-05] MEDS ORDERED: ALBUTEROL SULFATE 2.5 MG/0.5 ML INH NEB SOLN INH ONE (08:00)
[2020-02-05] MEDS ORDERED: IPRATROPIUM 0.5MG/ALBUTEROL 2.5MG INH SOL UD 3ML (DUONEB)(J7620) NEB ONE (08:00)
[2020-02-05] MEDS ORDERED: PIPERACILLIN/TAZOBACTAM SOD 4.5 GM in D5W MINI-BAG PLUS 50 ML IV ONE (08:15)
--- NOTE | 2020-02-05 08:18 | REP ---
Clinical: Cough and dyspnea . Comparison: 12/30/2019 . Findings: The mediastinum and cardiac silhouette are stable and within normal limits for portable technique. The lung garg demonstrate diffuse chronic-appearing interstitial changes. Subtle superimposed lower lobe atelectasis cannot be excluded. No discrete focal consolidation. No obvious effusion. No pneumothorax. A right-sided ventriculoperitoneal shunt identified. Old rib fractures noted. Impression: Chronic stable changes. Cannot exclude subtle basilar atelectasis. Electronically Signed by Marlo King MD 02/05/2020 08:09 A
[2020-02-05 08:23] LABS: BASO % 0.4 % (0.0-1.0); EOS % 0.1 % (0.0-3.0); HEMATOCRIT 49.3 % (42.0-52.0); HEMOGLOBIN 15.3 g/dl (13.5-17.5); LYMPH # 0.7 10^3/uL (1.5-5.0); LYMPH % 9.2 % (24.0-44.0); MEAN CORPUSCULAR HEMOGLOBIN 31.4 pg (27.0-33.0); MEAN CORPUSCULAR VOLUME 101.2 fl (80.0-96.0); MONO # 0.7 10^3/uL (0.0-0.8); MONO % 9.3 % (0.0-5.0); NEUTROPHILS # 5.8 10^3/uL (1.5-8.5); PLATELET COUNT, AUTOMATED 210 10^3/uL (150-450); RED BLOOD COUNT 4.87 10^6/uL (4.30-6.10); WHITE BLOOD COUNT 7.2 10^3/uL (4.0-10.0)
[2020-02-05 08:51] LABS: ALBUMIN 3.2 GM/DL (3.2-5.2); ALT/SGPT 627 U/L (12-78); BILIRUBIN,DIRECT < 0.1 MG/DL (0.0-0.2); BILIRUBIN,TOTAL 0.2 MG/DL (0.2-1.0); CK-MB VALUE MASS 1.7 NG/ML (<3.6); CPK CREATINE PHOSPHOKINASE 54 U/L (39-308); MB/CK RELATIVE INDEX 3.15 (< OR =4); NT-PRO BNP 7190 PG/ML (<125); THYROID STIMULATING HORMONE 0.883 uIU/ML (0.358-3.740); THYROXINE (T4) 6.3 UG/DL (4.5-12.0); TOTAL PROTEIN 7.4 GM/DL (6.4-8.2); TROPONIN I 0.12 NG/ML (< 0.10)
[2020-02-05] MEDS ORDERED: hydroCHLOROthiazide 12.5 MG CAPSULE PO SCH (09:00)
[2020-02-05] MEDS ORDERED: ENALAPRIL MALEATE 10 MG TAB PO SCH (09:00)
[2020-02-05] MEDS ORDERED: ASPI-161 PO (09:56)
[2020-02-05] MEDS ORDERED: SYMB16INH INH (09:56)
[2020-02-05] MEDS ORDERED: ENAL20TA PO (09:56)
[2020-02-05] MEDS ORDERED: HYDR12CA PO (09:56)
--- NOTE | 2020-02-05 10:59 | HPEPDOC ---
[facility] Medical History & Physical Date of Admission Feb 05, 2020 Date of Service: Feb 05, 2020 History and Physical CHIEF COMPLAINT: Shortness of breath HISTORY OF PRESENT ILLNESS: 74-year-old male with past medical history of COPD, hypertension and hyperlipidemia presents from home with worsening dyspnea and fatigue. Patient noted to be in acute on chronic hypercapnic respiratory failure, placed on BiPAP, reportedly mentation is improved after being on BiPAP for 1 hour. Patient is awake, able to answer simple questions and follow commands, reports dyspnea and fatigue, no other complaints. He is unable to provide any significant history regarding what led up to the events of last night. He supposedly has sleep apnea but cannot tell me if he uses CPAP or not. He denies any chest pain, nausea, vomiting, diarrhea or constipation. 10 point review of system is negative so for above PAST MEDICAL HISTORY: 1. COPD. 2. Hypertension. 3. Hyperlipidemia. PAST SURGICAL HISTORY: 1. ECOLOGIST shunt. 2. Right shoulder surgery. SOCIAL HISTORY: Smokes one pack per day, previously smoked 2 packs per day. Denies alcohol use Denies drug use FAMILY HISTORY: Father had heart disease ALLERGIES: Please see below. HOME MEDICATIONS: Please see below. PHYSICAL EXAMINATION: VITAL SIGNS: Please see below. GENERAL: On BiPAP, no distress HEENT: Normocephalic, atraumatic, moist mucous membranes NECK: Supple CARDIOVASCULAR EXAMINATION: S1, S2, no murmurs RESPIRATORY EXAMINATION: Scattered rhonchi, poor air movement, mild wheezing ABDOMINAL EXAMINATION: Soft, nontender, nondistended, positive bowel sounds EXTREMITIES: Range of motion intact SKIN: dry, scaly skin NEUROLOGICAL EXAMINATION: no focal deficits PSYCHIATRIC EXAMINATION: Calm and cooperative LABORATORY DATA: See below. IMAGING: Chest x-ray without acute pathology MICROBIOLOGY: Please see below. ASSESSMENT: 74-year-old male with multiple medical comorbidities and is being admitted for acute on chronic hypercapnic respiratory failure likely secondary to COPD exacerbation. PLAN: 1. Acute on chronic hypercapnic respiratory failure. Likely secondary to COPD exacerbation, ABG reviewed, improving with BiPAP, shoe repairman was consulted by ER for BiPAP management, admitted to ICU, nothing by mouth. 2. COPD exacerbation. IV steroids, empiric antibiotics, supplemental oxygen as needed to maintain O2 sats between 80-90%, DuoNeb every 4 hours 3. Acute on chronic kidney disease. Hold NICOLE inhibitor and diuretics, gentle IV hydration, will monitor. 4. Elevated LFTs Unknown etiology, liver ultrasound ordered, ?Shock liver. 5. Hypertension. Holding NICOLE inhibitor/hydrochlorothiazide due to acute kidney injury, continue metoprolol DVT prophylaxis: Heparin subcutaneous. GI prophylaxis: Not needed Vital Signs Vital Signs Date Time Temp Pulse Resp B/P (MAP) Pulse Ox O2 Delivery O2 Flow Rate FiO2 02/05/20 10:00 98 113/75 (88) 93 NIPPV (BIPAP/CPAP) 02/05/20 09:01 23 02/05/20 08:31 30 02/05/20 07:54 100.9 6.0 Laboratory Data Labs 24H Laboratory Tests 2 02/05/20 08:04: POC pH (Misc Panel) 7.232*L, POC Base Excess (Misc Panel) 10.0H, POC Saturated Percent O2 (Misc) 99H, POC pO2 (Misc Panel) 150.0H, POC pCO2 (Misc Panel) 89.7*H, POC HCO3 (Misc Panel) 37.7H, POC Total CO2 (Misc Panel) 40.0H 02/05/20 08:11: POC Total CO2 (Misc Panel) 33.0H, Immature Granulocyte % (Auto) 1.0, Neutrophils (%) (Auto) 80.0H, Lymphocytes (%) (Auto) 9.2L, Monocytes (%) (Auto) 9.3H, Eosinophils (%) (Auto) 0.1, Basophils (%) (Auto) 0.4, Neutrophils # (Auto) 5.8, Lymphocytes # (Auto) 0.7L, Monocytes # (Auto) 0.7, Eosinophils # (Auto) 0.0, Basophils # (Auto) 0.0, Nucleated Red Blood Cells % (auto) 0.7H, POC Glucose (Misc Panel) 125H, POC Sodium (Misc Panel) 139, POC Potassium (Misc Panel) 5.5H, POC Chloride (Misc Panel) 101, POC Blood Urea Nitrogen (Misc Panel 38H, POC Ionized Calcium (Misc Panel) 3.7L, POC Creatinine (Misc Panel) 2.3H, POC Hematocrit (Misc Panel) 47.0, Total Bilirubin 0.2, Direct Bilirubin < 0.1, Aspartate Amino Transf (AST/SGOT) 515H, Alanine Aminotransferase (ALT/SGPT) 627H, Alkaline Phosphatase 157H, Total Creatine Kinase 54, Creatine Kinase MB 1.7, Creatine Kinase MB Relative Index 3.15, Troponin I 0.12H, CV-Nmm-B-Type Natriuretic Peptide 7190H, Total Protein 7.4, Albumin 3.2, Albumin/Globulin Ratio 0.8, Thyroid Stimulating Hormone (TSH) 0.883, Thyroxine (T4) 6.3, Coronavirus (COVID-19)(PCR) NEGATIVE 02/05/20 08:15: POC Lactate (Misc Panel) 1.02 02/05/20 09:03: POC pH (Misc Panel) 7.273L, POC Base Excess (Misc Panel) 7.0H, POC Saturated Percent O2 (Misc) 87L, POC pO2 (Misc Panel) 64.0L, POC pCO2 (Misc Panel) 73.3*H, POC HCO3 (Misc Panel) 33.9H, POC Total CO2 (Misc Panel) 36.0H CBC/BMP Laboratory Tests 02/05/20 08:11 Microbiology Microbiology 02/05/20 Blood Culture, Received Pending 02/05/20 Blood Culture, Received Pending Home Medications Scheduled Aspirin (Aspirin EC) 81 Mg Tablet.dr, 81 MG PO DAILY Budesonide/Formoterol (Symbicort 160-4.5 Mcg Inhaler) 6 Gm Hfa.aer.ad, 2 PUFF INH BID Bupropion HCl (Bupropion HCl Sr) 150 Mg Tab.er.12h, 150 MG PO BID MORNING AND LUNCH Enalapril Maleate (Enalapril Maleate) 20 Mg Tablet, 20 MG PO DAILY Ergocalciferol (Vitamin D2) (Vitamin D2) 50,000 Units Cap, 50,000 UNITS PO QWEEK MONDAYS Hydrochlorothiazide (Hydrochlorothiazide) 12.5 Mg Capsule, 12.5 MG PO DAILY Metoprolol Succinate (Metoprolol Succinate) 50 Mg Tab.er.24h, 50 MG PO DAILY Montelukast Sodium (Montelukast Sodium) 10 Mg Tablet, 10 MG PO QHS Primidone (Primidone) 50 Mg Tablet, 100 MG PO TID Rosuvastatin Calcium (Rosuvastatin Calcium) 20 Mg Tablet, 10 MG PO QHS Theophylline Anhydrous (Theophylline) 400 Mg Tab.er.24h, 400 MG PO DAILY Tiotropium [place] (Spiriva) 18 Mcg Cap.w.dev, 18 MCG INH DAILY Scheduled PRN Albuterol Sulf (Albuterol Sulfate) 2.5 Mg/3 Ml Vial.neb, 2.5 MG INH QID PRN for SHORTNESS OF BREATH Albuterol Sulfate (Ventolin Hfa) 18 Gm Hfa.aer.ad, 2 PUFFS INH QID PRN for SHORTNESS OF BREATH Hydrocodone/Acetaminophen ([place] 10-325 Tablet) 1 Each Tablet, 1 TAB PO BID PRN for PAIN Allergies Coded Allergies: Sulfa (Sulfonamide Antibiotics) (Verified Allergy, Unknown, "break out", 01/05/19) A-FIB/CHADSVASC A-FIB History Current/History of A-Fib/PAF?: No KAROL DAVID MD Feb 05, 2020 10:59
[2020-02-05] MEDS ORDERED: PIPERACILLIN/TAZOBACTAM SOD 2.25 GM in D5W MINI-BAG PLUS 50 ML IV SCH (11:00)
--- NOTE | 2020-02-05 11:07 | ER ---
DATE OF CONSULTATION: 02/05/2020 ATTENDING PHYSICIAN: Dr. Rendon. REASON FOR CONSULTATION: Respiratory failure assistance with bilevel positive airway pressure (BiPAP) management. HISTORY OF PRESENT ILLNESS: Mr. Ojeda is a 74-year-old gentleman with underlying obstructive lung disease. He was recently admitted with exacerbation about a month ago. He presents today with increasing shortness of breath. He says this came on over the last several days. He may or may not have had a low grade fever at home. He is unsure. No significant sputum production. Denies sick contacts. They have had a little bit of drop off in his appetite. No other acute changes at this point. ALLERGIES: Listed as SULFA. MEDICATIONS AT HOME: - Mucomyst twice a day via nebulizer - BuSpar 150 mg twice a day - vitamin D - fluorouracil cream topically - metoprolol 50 mg daily - Singulair 10 mg at bedtime - Recently finished a prednisone taper - Takes primidone 50 mg three times a day - rosuvastatin 20 mg at nightly - theophylline 400 mg daily - Spiriva - He takes as needed albuterol and pain meds as needed. PAST MEDICAL HISTORY: 1. Significant for a previous central nervous system (MIRROR INSPECTOR) hemorrhage due to aneurysm. 2. Hypertension. 3. Ventriculoperitoneal (FOOD SERVICE TECHNICIAN) shunt. 4. Previous remote history of non-small cell lung cancer on the right status post radiation. 5. Underlying advanced obstructive lung disease. 6. History of asbestos exposure. Surgically, he has had a previous clavicular resection, had an aneurysm and shunt in 2003. His radiation therapy for his lung cancer is remote colonoscopy for two adenomas and umbilical herniorrhaphy. SOCIAL HISTORY: No recent tobacco. No reported alcohol. FAMILY HISTORY: Noncontributory. REVIEW OF SYSTEMS: Difficult to obtain in view of his noninvasive mask but wonders if he had a recent fever. HEENT: Unremarkable for double or blurry vision. PULMONARY: As per the HPI. CARDIAC: Unremarkable for any recent angina. GASTROINTESTINAL (GI): Unremarkable for any nausea or vomiting. GENITOURINARY (): Unremarkable for dysuria or urgency. NEUROLOGIC: As outlined above. HEMATOLOGIC: Unremarkable for any recent dyscrasias. MUSCULOSKELETAL: Significant for some chronic arthralgias and myalgias. ALLERGIC/IMMUNOLOGIC: Unremarkable. PSYCHIATRIC: Unremarkable. PHYSICAL EXAMINATION: Currently reveals a gentleman who appears his stated age on a gurney in the emergency room (ER). Noninvasive mask in place. He is easily arousable and is able to answer questions. Maximum temperature (Tmax) 100.9, blood pressure 110 systolic, heart currently 102 with a sinus mechanism, respiratory rate 24 without accessory muscle use. HEENT: Shows the bilevel positive airway pressure (BiPAP) mask in place. Pupils react. Sclerae are clear. Membranes are dry. Trachea is in the midline. CHEST: Shows markedly diminished but symmetrical expansion, hyperresonant to percussion. Tactile fremitus markedly diminished but palpable. No focal adventitious breath sounds are identified. CARDIAC EXAM: Distant but regular. Peripheral pulses diminished but palpable. No obvious edema. ABDOMEN: Soft, nontender with active bowel sounds. No convincing organomegaly or masses. EXTREMITIES: show no cyanosis or clubbing. NEUROLOGIC: He is awake, alert, and appropriate. PSYCHIATRIC: Normal mood and affect. Chest x-ray done earlier this morning shows chronic changes on the right. There is evidence of some hyperexpansion. Multiple previous healed rib fractures and some chronic fibroatelectatic changes right greater than left. MOST RECENT LABORATORIES: White blood cell count 7.2, hemoglobin 15.3, platelet count 210,000, 80% segs, no bands. Sodium 139, potassium of 5.5, chloride 101, CO2 33, BUN 38, creatinine of 2.3. First blood gas showed a pH 7.232, pCO2 of 89.7, and a pO2 of 150. He was placed on noninvasive support 12/6 and after an hour repeat blood gas shows pH 7.273, pCO2 of 73.3, and a pO2 of 64. Manipulations of the BiPAP were made by myself. He is now on 16/6 with a FiO2 of 30%, respiratory rate in the 20s. He is moving tidal volumes anywhere from 350 to 500. His COVID-19 PCR is negative. IMPRESSION: 1. Acute on chronic respiratory failure both hypoxemic and hypercapnic. 2. Underlying obstructive lung disease. 3. Previous tobacco history. 4. History of lung cancer status post XRT. 5. Previous aneurysm with FOOD SERVICE TECHNICIAN shunt. RECOMMENDATIONS: At this point, I am in agreement with noninvasive support. Adjustments were made and he is much more comfortable. He will be treated with IV steroids, nebulized bronchodilators, and empiric antimicrobials. He is being admitted to the hospital service and I will follow him closely while he is here. Ulcer and deep venous thrombosis (DVT) prophylaxis will be ordered by primary service. Further recommendations will be made in the progress record as new information becomes available. Prognosis is guarded in view of his multiorgan dysfunction. He has significant renal insufficiency on this visit and it appears that this is new as well as he left on 01/01/2020 with a creatinine of 1.53. This will be addressed by the primary service. GARY
[2020-02-05 11:35] VITALS: BP 153/95
[2020-02-05 11:40] LABS: BLOOD UREA NITROGEN 33 MG/DL (7-18); CARBON DIOXIDE LEVEL 33 MEQ/L (21-32); CHLORIDE LEVEL 103 MEQ/L (98-107); CREATININE FOR GFR 2.11 MG/DL (0.70-1.30); GLUCOSE, FASTING 120 MG/DL (70-100); POTASSIUM SERUM 5.9 MEQ/L (3.5-5.1); SODIUM LEVEL 141 MEQ/L (136-145)
[2020-02-05] MEDS: IPRATROPIUM 0.5MG/ALBUTEROL 2.5MG INH SOL UD 3ML (DUONEB)(J7620) NEB SCH ×3 (11:47→19:58)
[2020-02-05] MEDS: buPROPion **SR TABLET** (ZYBAN) 150MG PO SCH (12:00)
[2020-02-05 12:23] LABS: ABG BASE EXCESS 5.6 (-2.0-2.0); ABG HCO3 34.3 MEQ/L (22.0-26.0); ABG O2 SATURATION 93.8 % (95.0-99.0); ABG PARTIAL PRESSURE O2 68.2 mmHg (75.0-100.0); ABG STANDARD HCO3 29.4 MEQ/L (22.0-26.0); ABG TOTAL CO2 36.4 MEQ/L (23.0-31.0); ABG pH (ARTERIAL) 7.323 UNITS (7.350-7.450)
[2020-02-05 12:24] LABS: ABG PARTIAL PRESSURE CO2 67.6 mmHg (35.0-45.0)
--- NOTE | 2020-02-05 12:24 | ECGEPIP ---
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
[2020-02-05 12:30] VITALS: BP 168/95
[2020-02-05] MEDS: METOPROLOL SUCC (TopROL XL) 50MG **XL** TAB PO SCH (12:30)
[2020-02-05] MEDS: ASPIRIN 81 MG ENTERIC TAB PO SCH (12:30)
--- NOTE | 2020-02-05 13:47 | REP ---
Clinical: Elevated liver function tests. Technique: Real time aguilar scale ultrasound examination using curved array transducer. Findings: Evaluation is limited due to technical factors and poor positioning. Liver and visualized portions of the pancreas are normal. No focal hepatic or pancreatic lesion is identified. Gallbladder demonstrates two 7 mm echogenic foci with minimal shadowing suggesting small polyps or possible early sludge balls. No gallbladder wall thickening or pericholecystic fluid. No biliary ductal dilatation is appreciated and the common bile duct measures 4 mm diameter. The right kidney is normal in reniform shape without hydronephrosis and measures 10.4 x 5.5 x 5.5 cm. No ascites in the visualized right upper quadrant. Impression: 1. Small 7 mm echogenic foci within the gallbladder suggesting polyps versus small sludge balls. No further evidence to suggest acute cholecystitis. 2. Otherwise relatively normal right upper quadrant/liver ultrasound. Electronically Signed by Marlo King MD 02/05/2020 01:39 P
[2020-02-05] MEDS ORDERED: PATIROMER SORBITEX CALCIUM 8.4 GM POWDER PACKET (VELTASSA) PO ONE (14:00)
[2020-02-05 14:41] VITALS: BP 143/89
[2020-02-05 17:30] VITALS: BP 142/89
[2020-02-05] MEDS: PRIMIDONE 50 MG TAB PO SCH ×2 (17:39→20:46)
[2020-02-05] MEDS: PIPERACILLIN/TAZOBACTAM SOD 3.375 GM in D5W MINI-BAG PLUS 50 ML IV SCH ×2 (17:39→23:54)
[2020-02-05] MEDS: methylPREDNISolone INJ 125 MG/2 ML VIAL (J2930) IV SCH (17:39)
[2020-02-05 20:00] VITALS: BP 151/81
[2020-02-05] MEDS: MONTELUKAST 10 MG TAB PO SCH (20:46)
[2020-02-05] MEDS: HEPARIN SOD (PORCINE) 5000UNITS/ML VIAL (J1644 PER 1000UNITS) SC SCH (20:46)
[2020-02-05] MEDS: ROSUVASTATIN 10 MG TAB (CRESTOR) PO SCH (20:46)
[2020-02-05 21:16] LABS: CALCIUM LEVEL 8.5 MG/DL (8.8-10.2); CREATININE FOR GFR 1.83 MG/DL (0.70-1.30); GLOMERULAR FILTRATION RATE 38.9 (>42); POTASSIUM SERUM 5.3 MEQ/L (3.5-5.1)
[2020-02-06] VITALS: BP 152/85
[2020-02-06] MEDS: IPRATROPIUM 0.5MG/ALBUTEROL 2.5MG INH SOL UD 3ML (DUONEB)(J7620) NEB SCH ×7 (01:48→23:19)
[2020-02-06] MEDS: methylPREDNISolone INJ 125 MG/2 ML VIAL (J2930) IV SCH (02:08)
[2020-02-06 04:00] VITALS: BP 142/72
[2020-02-06 04:35] LABS: HEMATOCRIT 45.3 % (42.0-52.0); HEMOGLOBIN 14.3 g/dl (13.5-17.5); MEAN CORPUSCULAR HEMOGLOBIN 31.1 pg (27.0-33.0); MEAN CORPUSCULAR HGB CONC 31.6 g/dl (32.0-36.5); MEAN CORPUSCULAR VOLUME 98.5 fl (80.0-96.0); PLATELET COUNT, AUTOMATED 175 10^3/uL (150-450); WHITE BLOOD COUNT 6.1 10^3/uL (4.0-10.0)
[2020-02-06 05:01] LABS: ALBUMIN 3.2 GM/DL (3.2-5.2); BILIRUBIN,TOTAL 0.3 MG/DL (0.2-1.0); CALCIUM LEVEL 8.6 MG/DL (8.8-10.2); CREATININE FOR GFR 1.97 MG/DL (0.70-1.30); GLOMERULAR FILTRATION RATE 35.8 (>42); MAGNESIUM LEVEL 1.6 MG/DL (1.8-2.4); POTASSIUM SERUM 4.8 MEQ/L (3.5-5.1); TOTAL PROTEIN 6.4 GM/DL (6.4-8.2)
[2020-02-06] MEDS: PIPERACILLIN/TAZOBACTAM SOD 3.375 GM in D5W MINI-BAG PLUS 50 ML IV SCH ×2 (06:00→11:43)
[2020-02-06] MEDS: MAG SULF 1GM/100ML (MAG RUN) 1 GM in IV 1 EA IV SCH ×2 (07:41→08:57)
[2020-02-06 08:09] VITALS: BP 122/63
[2020-02-06] MEDS: buPROPion **SR TABLET** (ZYBAN) 150MG PO SCH ×2 (08:09→11:43)
[2020-02-06] MEDS: PRIMIDONE 50 MG TAB PO SCH ×3 (08:09→20:31)
[2020-02-06] MEDS: METOPROLOL SUCC (TopROL XL) 50MG **XL** TAB PO SCH (08:09)
[2020-02-06] MEDS: ASPIRIN 81 MG ENTERIC TAB PO SCH (08:09)
[2020-02-06] MEDS: HEPARIN SOD (PORCINE) 5000UNITS/ML VIAL (J1644 PER 1000UNITS) SC SCH ×2 (08:09→20:31)
[2020-02-06] MEDS: methylPREDNISolone INJ 40 MG/1 ML VIAL (J2920) IV SCH ×2 (09:51→18:35)
--- NOTE | 2020-02-06 10:18 | CCN ---
PULMONARY CRITICAL CARE PROGRESS NOTE DATE OF VISIT: 02/06/2020 I again attended Mike Ojeda here in the intensive care unit. The patient has been examined and chart reviewed, and I spoke at length with the nurse at the bedside. He has been able to tolerate longer periods off of the noninvasive support. His cough is much more effective when he is off, and he is producing reasonable sputum. Maximum temperature (Tmax) overnight 99.2, blood pressure 120-150 systolic, heart rate 70s-90s with a sinus mechanism, respiratory rate generally in the 20s without obvious accessory muscle use. Intake and output (I and O) midnight to midnight 1130 mL in with 830 mL out. Most recent laboratories show white blood cell count of 6.1, hemoglobin 14.3, platelet count 175,000. No differential this morning. Sodium 142, potassium 4.8, chloride 100, CO2 35, BUN 35, creatinine 1.97. Glucose of 130. Repeat blood gas done yesterday after several hours on noninvasive support shows a pH improved at 7.323, PCO2 down to 67.6, and a pO2 of 68.2. On examination, currently he is comfortable. Easily arousable. Pupils react. Sclerae are clear. Trachea is in the midline. CHEST: Shows a kyphosis with marked hyperresonance to percussion and significant global decrease in breath sound intensity. There is intermittent pursed lip breathing, which apparently is his baseline. No focal adventitious breath sounds are identified today. CARDIAC EXAMINATION: Distant but regular. Peripheral pulses palpable. No obvious edema. ABDOMEN: Soft with active bowel sounds. No convincing organomegaly or masses. EXTREMITIES: No cyanosis or clubbing. NEUROLOGIC: He is easily arousable. No new imaging this morning. IMPRESSION: 1. Acute on chronic respiratory failure, both hypoxemic and hypercapnic. 2. Essentially end-stage obstructive lung disease. 3. 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 4. History of lung cancer, status post radiation treatment. 5. A question of underlying obstructive sleep apnea (LIBBY). 6. Renal insufficiency. RECOMMENDATIONS: At this point, we will continue his current level of nebulized bronchodilators. We can probably start to wean his intravenous (IV) steroids some. We will leave him off of noninvasive support and recheck an arterial blood gas, as certainly his cough will be much more efficient without noninvasive support. If he is able to remain off noninvasive, will allow him to advance his diet. We will try to obtain old records regarding his sleep apnea, as he really was not able to tell us much about that yesterday, but hopefully he can shed more light on that today. We will proceed as outlined above. Ulcer and deep venous thrombosis (DVT) prophylaxes. He will continue to be followed closely. Further recommendations will be made in the progress record as new information becomes available.
[2020-02-06 10:46] LABS: HEPATITIS B SURFACE ANTIGEN NEGATIVE (NEGATIVE)
[2020-02-06] MEDS ORDERED: NS 1,000 ML IV SCH (11:00)
[2020-02-06 11:14] LABS: HEPATITIS B CORE ANTIBODY IGM NEGATIVE (NEGATIVE); HEPATITIS C VIRUS ABY INDEX 0.2 INDEX (<0.8)
[2020-02-06 11:20] LABS: ABG pH (ARTERIAL) 7.379 UNITS (7.350-7.450)
[2020-02-06 11:21] LABS: ABG BASE EXCESS 7.8 (-2.0-2.0); ABG HCO3 35.1 MEQ/L (22.0-26.0); ABG O2 SATURATION 93.8 % (95.0-99.0); ABG PARTIAL PRESSURE O2 70.2 mmHg (75.0-100.0); ABG STANDARD HCO3 31.5 MEQ/L (22.0-26.0)
[2020-02-06 11:24] LABS: ABG PARTIAL PRESSURE CO2 60.9 mmHg (35.0-45.0)
[2020-02-06 11:48] VITALS: BP 139/75
--- NOTE | 2020-02-06 13:38 | IPNPDOC ---
Date Seen The patient was seen on 02/06/20. Progress Note SUBJECTIVE: Patient was seen and examined overnight. Currently no new complaints. He was placed on BiPAP yesterday due to hypercarbic, hypoxemic respiratory failure. This morning the patient is off of BiPAP and on nasal cannula. He denies any increase in shortness of breath. He denies any chest pain or abdominal pain. OBJECTIVE PHYSICAL EXAMINATION: VITAL SIGNS: Please see below. GENERAL: Awake, alert, and oriented. Appears in no acute distress. Sitting up comfortably in bed HEENT: Atraumatic, normocephalic. Eyes are nonicteric. Trachea is midline CARDIOVASCULAR: Normal S1, S2. Regular rate and rhythm. No clicks, rubs, or murmurs. No JVD RESPIRATORY: Diminished breath sounds throughout. Clear vesicular breath sounds. No wheezes, rhonchi, or rales. Symmetric chest expansion ABDOMINAL: Soft, nondistended. Nontender. Normoactive bowel sounds EXTREMITIES: No edema. Full and equal pulses in bilateral lower extremities NEUROLOGICAL: No focal neurological deficits PSYCHOLOGICAL: Mood and affect appear appropriate LABORATORY DATA, IMAGING STUDIES, MICROBIOLOGY: Please see below. DVT prophylaxis ordered?: Heparin SQ ASSESSMENT AND PLAN: Patient is a 74 year old male with a past medical history significant for COPD, hypertension, and hyperlipidemia who presented to [facility] with complaint of shortness of breath. Patient was in hypoxemic, hypercarbic respiratory failure and placed on bilevel PROBLEMS: 1. Acute on Chronic Hypoxemic Hypercarbic Respiratory Failure 2/2 COPD exacerbation -Likely secondary to COPD exacerbation. Patient has been seen and evaluated by Pulmonary medicine. He has been placed on Bilevel overnight secondary to his hypercarbia. He is on nasal cannula this morning. He reports subjective improvement -Currently on IV steroids. Changed to Solumedrol 40 mg q8h IV by Pulmonary today. -Patient is on empiric antibiotics with Zosyn. Given renal dysfunction will change to Cefepime. Pro-calcitonin is 0.22. Will likely transition to oral course of antibiotics pending clinical improvement -Repeat ABG 2. Acute on Chronic Kidney Disease -Patient has HORACE in setting of CKD. Baseline Cr is 1.4-1.5. Today Cr is 1.97. Unclear etiology however likely pre-renal from poor oral intake. -Will give gentle hydration. 1L NS. Patients diet was advanced today -Will trend Cr. -Avoid nephrotoxic medications. Patient is currently on Cefepime. Zosyn has been discontinued due to HORACE -Will monitor and replete electrolytes PRN 3. Elevated Transaminitis -Patient presented with elevated transaminases. Currently trending down -Liver ultrasound negative for any acute findings. Hepatitis Panel is pending -Unclear etiology possibly shock liver or congestive hepatopathy although patient was not noted to be hypotensive. He does not appear volume overloaded and in fact appears slightly dry. Will continue to monitor LFTs 4. Hypertension -Currently normotensive. Will continue home medications 5. DVT Prophylaxis -Heparin SQ 6. GI prophylaxis -Protonix 40 mg daily 3. : . DISPOSITION: Likely downgrade to Med/Surg status once off of BiPAP Attending attestation: I evaluated and examined the patient in person; I discussed the care with Resident in detail and agree with the plan above. VS, I&O, 24H, Fishbone Vital Signs/I&O Vital Signs Date Time Temp Pulse Resp B/P (MAP) Pulse Ox O2 Delivery O2 Flow Rate FiO2 02/06/20 12:00 2.0 02/06/20 11:48 97.6 83 22 139/75 (96) 94 Nasal Cannula 02/06/20 05:02 25 I&O- Last 24 Hours up to 6 AM 02/06/20 06:00 Intake Total 1300 ml Output Total 980 ml Balance 320 ml Laboratory Data 24H LABS Laboratory Tests 2 02/05/20 20:38: Anion Gap 5L, Glomerular Filtration Rate 38.9L, Calcium Level 8.5L 02/06/20 04:16: Anion Gap 7L, Glomerular Filtration Rate 35.8L, Calcium Level 8.6L, Nucleated Red Blood Cells % (auto) 0.7H, Magnesium Level 1.6L, Total Bilirubin 0.3, Aspartate Amino Transf (AST/SGOT) 303H, Alanine Aminotransferase (ALT/SGPT) 535H, Alkaline Phosphatase 139H, Total Protein 6.4, Albumin 3.2, Albumin/Globulin Ratio 1.0 02/06/20 11:09: Blood Gas Bicarbonate Standard 31.5H, Arterial Blood pH 7.379, Arterial Blood Partial Pressure CO2 60.9*H, Arterial Blood Partial Pressure O2 70.2L, Arterial Blood Total CO2 37.0H, Arterial Blood HCO3 35.1H, Arterial Blood Base Excess 7.8H, Arterial Blood Oxygen Saturation 93.8L CBC/BMP Laboratory Tests 02/05/20 20:38 02/06/20 04:16 Microbiology Microbiology 02/05/20 Blood Culture - Preliminary, Resulted No growth after 24 hours . All specim... 02/05/20 Blood Culture - Preliminary, Resulted No growth after 24 hours . All specim... MARCIAL SANTACRUZ DO Feb 06, 2020 13:38 KAROL DAVID MD Feb 10, 2020 19:13
[2020-02-06 15:45] LABS: HEPATITIS A ANTIBODY IGM NEGATIVE (NEGATIVE)
[2020-02-06] MEDS: CEFEPIME HCL 2 GM in D5W MINI-BAG PLUS 50 ML IV SCH (16:04)
[2020-02-06] MEDS: PANTOPRAZOLE 40MG TAB (PROTONIX) PO SCH (16:04)
[2020-02-06 16:36] VITALS: BP 124/69
[2020-02-06 20:00] VITALS: BP 124/85
[2020-02-06] MEDS: ROSUVASTATIN 10 MG TAB (CRESTOR) PO SCH (20:31)
[2020-02-06] MEDS: MONTELUKAST 10 MG TAB PO SCH (20:31)
[2020-02-07] VITALS: BP 121/66
[2020-02-07] MEDS: methylPREDNISolone INJ 40 MG/1 ML VIAL (J2920) IV SCH ×3 (02:00→16:30)
[2020-02-07] MEDS: IPRATROPIUM 0.5MG/ALBUTEROL 2.5MG INH SOL UD 3ML (DUONEB)(J7620) NEB SCH ×6 (03:20→23:26)
[2020-02-07] MEDS: CEFEPIME HCL 2 GM in D5W MINI-BAG PLUS 50 ML IV SCH ×2 (03:58→16:31)
[2020-02-07 04:00] VITALS: BP 121/74
[2020-02-07 05:02] LABS: ALBUMIN 2.6 GM/DL (3.2-5.2); BILIRUBIN,TOTAL 0.1 MG/DL (0.2-1.0); CALCIUM LEVEL 7.9 MG/DL (8.8-10.2); CREATININE FOR GFR 1.5 MG/DL (0.70-1.30); POTASSIUM SERUM 4.3 MEQ/L (3.5-5.1); TOTAL PROTEIN 5.5 GM/DL (6.4-8.2)
[2020-02-07 05:20] LABS: HEMATOCRIT 40.5 % (42.0-52.0); HEMOGLOBIN 13.1 g/dl (13.5-17.5); MEAN CORPUSCULAR HGB CONC 32.3 g/dl (32.0-36.5); PLATELET COUNT, AUTOMATED 146 10^3/uL (150-450); RED BLOOD COUNT 4.09 10^6/uL (4.30-6.10); WHITE BLOOD COUNT 5.5 10^3/uL (4.0-10.0)
[2020-02-07 08:00] VITALS: BP 152/72
[2020-02-07] MEDS: ASPIRIN 81 MG ENTERIC TAB PO SCH (08:22)
[2020-02-07] MEDS: HEPARIN SOD (PORCINE) 5000UNITS/ML VIAL (J1644 PER 1000UNITS) SC SCH ×2 (08:23→20:57)
[2020-02-07] MEDS: PANTOPRAZOLE 40MG TAB (PROTONIX) PO SCH (08:23)
[2020-02-07] MEDS: METOPROLOL SUCC (TopROL XL) 50MG **XL** TAB PO SCH (08:23)
[2020-02-07] MEDS: buPROPion **SR TABLET** (ZYBAN) 150MG PO SCH ×2 (08:23→11:46)
[2020-02-07] MEDS: PRIMIDONE 50 MG TAB PO SCH ×3 (08:23→20:56)
--- NOTE | 2020-02-07 09:52 | IPNPDOC ---
Date Seen The patient was seen on 02/07/20. Progress Note SUBJECTIVE: Patient was seen and examined overnight. There were no adverse events reported overnight. Patient has remained off Bilevel. He is continued on 2L Nasal cannula. He states that he is feeling better then when he came in. He denies any worsening shortness of breath. He denies any chest pain OBJECTIVE PHYSICAL EXAMINATION: VITAL SIGNS: Please see below. GENERAL: Awake, alert, and oriented. Appears in no acute distress. Sitting comfortably in chair HEENT: Atraumatic, normocephalic. Eyes are nonicteric. Trachea is midline CARDIOVASCULAR: Normal S1, S2. Regular rate and rhythm with occasional ectopic beats. No clicks, rubs, or murmurs. No JVD RESPIRATORY: Diminished breath sounds throughout although clear. No wheezes, rhonchi, or rales. Symmetric chest expansion ABDOMINAL: Soft, nondistended. Nontender. Normoactive bowel sounds EXTREMITIES: No edema. Full and equal pulses in bilateral lower extremities NEUROLOGICAL: No focal neurological deficits PSYCHOLOGICAL: Mood and affect appear appropriate LABORATORY DATA, IMAGING STUDIES, MICROBIOLOGY: Please see below DVT prophylaxis ordered?: Heparin SQ ASSESSMENT AND PLAN: Patient is a 74 year old male with a past medical history significant for COPD, hypertension, and hyperlipidemia who presented to [facility] with complaint of shortness of breath. Patient was in hypoxemic, hypercarbic respiratory failure and placed on bilevel PROBLEMS: 1. Acute on Chronic Hypoxemic Hypercarbic Respiratory Failure 2/2 COPD exacerba tion -Likely secondary to COPD exacerbation. Patient has been seen and evaluated by Pulmonary medicine. He has remained off of Bilevel. Continued on nasal cannula -Steroids have been changed to PO Prednisone. -Patient is continued on Cefepime. -Patient will be transferred to med/surg 2. Irregular heart rhythm -Patient noted to have irregular heart rhythm per nursing. Patient had no com plaints. EKG was obtained. Appears sinus with supraventricular complexes. Likely secondary to his chronic lung disease. Patient is asymptomatic currently. -Will place on telemetry for 48 hours 3. Acute on Chronic Kidney Disease -Patient has HORACE in setting of CKD. Baseline Cr is 1.4-1.5. -Patient Cr improved today to 1.5 which is close to baseline. -Will continue to trend Cr -Avoid nephrotoxic medications -Will monitor and replete electrolytes PRN 4. Elevated Transaminitis -Transaminases continue to trend down. Likely secondary to his acute illness. Hepatitis panel is negative 5. Hypertension -Currently normotensive. Will continue home medications 6. DVT Prophylaxis -Heparin SQ 7. GI prophylaxis -Protonix 40 mg daily DISPOSITION: Downgrade to med/surg tele VS, I&O, 24H, Fishbone Vital Signs/I&O Vital Signs Date Time Temp Pulse Resp B/P (MAP) Pulse Ox O2 Delivery O2 Flow Rate FiO2 02/07/20 04:00 98.7 81 22 121/74 (90) 97 Nasal Cannula 2.0 02/06/20 05:02 25 I&O- Last 24 Hours up to 6 AM 02/07/20 06:00 Intake Total 2860 ml Output Total 1700 ml Balance 1160 ml Laboratory Data 24H LABS Laboratory Tests 2 02/06/20 11:09: Blood Gas Bicarbonate Standard 31.5H, Arterial Blood pH 7.379, Arterial Blood Partial Pressure CO2 60.9*H, Arterial Blood Partial Pressure O2 70.2L, Arterial Blood Total CO2 37.0H, Arterial Blood HCO3 35.1H, Arterial Blood Base Excess 7.8H, Arterial Blood Oxygen Saturation 93.8L 02/07/20 04:19: Nucleated Red Blood Cells % (auto) 0.0, Anion Gap 4L, Glomerular Filtration Rate 49.0, Calcium Level 7.9L, Magnesium Level 2.0, Total Bilirubin 0.1#L, Aspartate Amino Transf (AST/SGOT) 184H, Alanine Aminotransferase (ALT/SGPT) 456H, Alkaline Phosphatase 113, Total Protein 5.5L, Albumin 2.6L, Albumin/Globulin Ratio 0.9 CBC/BMP Laboratory Tests 02/07/20 04:19 Microbiology Microbiology 02/05/20 Blood Culture - Preliminary, Resulted No Growth after 48 hours. All Specime... 02/05/20 Blood Culture - Preliminary, Resulted No Growth after 48 hours. All Specime... MARCIAL SANTACRUZ DO Feb 07, 2020 09:52
--- NOTE | 2020-02-07 10:12 | IPN ---
DATE OF VISIT: 02/07/2020 I again attended Mr. Ojeda here in the intensive care unit. The patient has been examined and the chart reviewed. I spoke at length with the primary service. He states he is much more comfortable this morning and feels much closer to his baseline. T-max overnight 99 degrees, blood pressure 120 systolic, heart rate 80 to low 100s, with intermittent irregularities. Respiratory rate 18-24 without obvious accessory muscle use, but does have purse lipped breathing. Ins and outs midnight to midnight 2550 mL in and 1450 mL out. The most recent laboratories show a white blood cell count of 5.5, hemoglobin 13.0 and platelet count 146,000. No differential today. Sodium 144, potassium 4.3, chloride 105, CO2 35, BUN 29, creatinine down to 1.50 and glucose of 114. On exam, he is awake, alert and appropriate, easily conversant. Vitals as above. Pupils react, sclerae are clear. Trachea is in the midline. Chest shows markedly decreased breath sound intensity. There is borderline prolongation of the expiratory phase. Hyperresonance to percussion. There is mid to late expiratory wheezing, especially in the mid zones. No other focal adventitious breath sounds are identified. Cardiac exam is mildly tachycardiac and irregular. Peripheral pulses are diminished. Trace edema. Abdomen soft with active bowel sounds. No convincing organomegaly or masses. Extremities without cyanosis or clubbing. Neurologically, he is awake, alert and appropriate. Psychiatric with general mood and affect. IMPRESSION: 1. Chronic obstructive lung disease with exacerbation. 2. Acute on chronic respiratory failure, both hypoxemic and hypercapnic. 3. Presumed history of lung cancer status post stereotactic body radiation therapy (SBRT) without definitive biopsy. 4. Ventriculoperitoneal (AXLE AND FRAME MECHANIC) shunt from previous hemorrhage. 5. Question of obstructive sleep apnea (LIBBY). 6. Renal insufficiency, improving. RECOMMENDATIONS: At this point, we will complete his Solu-Medrol intravenously today and change him to oral prednisone tomorrow. He has remained off BiPAP. I had a long discussion with him regarding [facility]. He continues to follow with the OR in [place] for this. He believes he also has an upcoming followup with Dr. Perdomo from radiation oncology. At this point, we will increase his out of bed activity. I spoke with the primary service about removing him out of the intensive care unit. He will be followed as needed while he is here. He follows from an [facility] standpoint [facility] [place]. Thank you for allowing us to participate in his care.
[2020-02-07 12:00] VITALS: BP 144/79
[2020-02-07 14:50] VITALS: BP 160/94
[2020-02-07] MEDS: ROSUVASTATIN 10 MG TAB (CRESTOR) PO SCH (20:57)
[2020-02-07] MEDS: MONTELUKAST 10 MG TAB PO SCH (20:57)
--- NOTE | 2020-02-07 21:50 | ECGEPIP ---
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
[2020-02-07 22:00] VITALS: BP 174/84
[2020-02-08] MEDS: IPRATROPIUM 0.5MG/ALBUTEROL 2.5MG INH SOL UD 3ML (DUONEB)(J7620) NEB SCH ×3 (03:16→11:40)
[2020-02-08] MEDS: CEFEPIME HCL 2 GM in D5W MINI-BAG PLUS 50 ML IV SCH (04:05)
[2020-02-08 06:00] VITALS: BP 140/62
[2020-02-08 06:16] LABS: HEMATOCRIT 39.5 % (42.0-52.0); HEMOGLOBIN 12.4 g/dl (13.5-17.5); MEAN CORPUSCULAR HGB CONC 31.4 g/dl (32.0-36.5); MEAN CORPUSCULAR VOLUME 98.8 fl (80.0-96.0); PLATELET COUNT, AUTOMATED 142 10^3/uL (150-450)
[2020-02-08 06:52] LABS: ALBUMIN 2.7 GM/DL (3.2-5.2); BILIRUBIN,TOTAL 0.2 MG/DL (0.2-1.0); CALCIUM LEVEL 8.2 MG/DL (8.8-10.2); CREATININE FOR GFR 1.29 MG/DL (0.70-1.30); GLOMERULAR FILTRATION RATE 58.3 (>42); POTASSIUM SERUM 4.3 MEQ/L (3.5-5.1); TOTAL PROTEIN 5.7 GM/DL (6.4-8.2)
[2020-02-08] MEDS: buPROPion **SR TABLET** (ZYBAN) 150MG PO SCH ×2 (08:13→12:07)
[2020-02-08] MEDS: ASPIRIN 81 MG ENTERIC TAB PO SCH (08:13)
[2020-02-08] MEDS: PANTOPRAZOLE 40MG TAB (PROTONIX) PO SCH (08:13)
[2020-02-08] MEDS: PRIMIDONE 50 MG TAB PO SCH (08:13)
[2020-02-08 08:17] VITALS: BP 155/77
[2020-02-08] MEDS: METOPROLOL SUCC (TopROL XL) 50MG **XL** TAB PO SCH (08:17)
[2020-02-08] MEDS: HEPARIN SOD (PORCINE) 5000UNITS/ML VIAL (J1644 PER 1000UNITS) SC SCH (08:21)
[2020-02-08] MEDS ORDERED: predniSONE 20 MG TAB PO SCH (09:00)
[2020-02-08] MEDS ORDERED: PRED10TA2 PO (10:08)
[2020-02-08] MEDS ORDERED: PANT40TA3 PO (10:08)
[2020-02-08] MEDS ORDERED: CEFD1CAP8 PO (10:08)
--- NOTE | 2020-02-08 18:56 | DS.PDOC ---
Discharge Summary General Date of Admission Feb 05, 2020 at 10:30 Date of Discharge 02/08/2020 Attending Physician: RICHA DUMONT MD Specialist/Consultants Involve: Bruce Conde Discharge Summary PROCEDURES PERFORMED DURING STAY: [None]. ADMITTING DIAGNOSES: 1. Acute Hypoxemic, Hypercarbic Respiratory Failure 2/2 COPD Exacerbation 2. Acute on Chronic Kidney Disease 3. Transaminitis DISCHARGE DIAGNOSES: 1. Acute Hypoxemic, Hypercarbic Respiratory Failure 2/2 COPD Exacerbation 2. Acute on Chronic Kidney Disease 3. Transaminitis COMPLICATIONS/CHIEF COMPLAINT: Acute Respiratory Failure With Hypoxia. HISTORY OF PRESENT ILLNESS: Patient is a 74 year old male with a past medical history significant for COPD, hypertension, and hyperlipidemia who presented to [facility] with complaint of shortness of breath and fatigue. Patient stated that he was walking to the bathroom in his house and felt himself getting short of breath. His fiance was present at the time and had noted that the patient appeared confused. On presentation to the ER the patient was found to be in acute hypoxemic, hypercarbic respiratory failure. He was placed on bilevel. After 1 hour the patient had improvement in his mentation. HOSPITAL COURSE: The patient was admitted and continued on bilevel overnight. He was seen and evaluated by Pulmonary Medicine. Repeat ABG in the AM demonstrated resolution of his hypercarbia. The patient was continued on antibiotics and steroids for presumed COPD exacerbation. He was transferred to med/surg floor where he was weaned down to oral steroids. The patient was seen by physical therapy. The patient was subsequently discharged with recommendations to follow- up with his PCP and Engineering Specialist Technician at the [facility] DISCHARGE MEDICATIONS: Please see below. ALLERGIES: Please see below. PHYSICAL EXAMINATION ON DISCHARGE: VITAL SIGNS: Please see below. GENERAL: Awake, alert, and oriented. Appears in no acute distress. Sitting comfortably in chair HEENT: Atraumatic, normocephalic. Eyes are nonicteric. Trachea is midline CARDIOVASCULAR: Normal S1, S2. Regular rate and rhythm with occasional ectopic beats. No clicks, rubs, or murmurs. No JVD RESPIRATORY: Diminished breath sounds throughout although clear. No wheezes, rhonchi, or rales. Symmetric chest expansion ABDOMINAL: Soft, nondistended. Nontender. Normoactive bowel sounds EXTREMITIES: No edema. Full and equal pulses in bilateral lower extremities NEUROLOGICAL: No focal neurological deficits PSYCHOLOGICAL: Mood and affect appear appropriate LABORATORY DATA: Please see below. IMAGING: Clinical: Cough and dyspnea . Comparison: 12/30/2019 . Findings: The mediastinum and cardiac silhouette are stable and within normal limits for portable technique. The lung garg demonstrate diffuse chronic-appearing interstitial changes. Subtle superimposed lower lobe atelectasis cannot be excluded. No discrete focal consolidation. No obvious effusion. No pneumothorax. A right-sided ventriculoperitoneal shunt identified. Old rib fractures noted. Impression: Chronic stable changes. Cannot exclude subtle basilar atelectasis. Electronically Signed by Marlo King MD 02/05/2020 08:09 Clinical: Elevated liver function tests. Technique: Real time aguilar scale ultrasound examination using curved array transducer. Findings: Evaluation is limited due to technical factors and poor positioning. Liver and visualized portions of the pancreas are normal. No focal hepatic or pancreatic lesion is identified. Gallbladder demonstrates two 7 mm echogenic foci with minimal shadowing suggesting small polyps or possible early sludge balls. No gallbladder wall thickening or pericholecystic fluid. No biliary ductal dilatation is appreciated and the common bile duct measures 4 mm diameter. The right kidney is normal in reniform shape without hydronephrosis and measures 10.4 x 5.5 x 5.5 cm. No ascites in the visualized right upper quadrant. Impression: 1. Small 7 mm echogenic foci within the gallbladder suggesting polyps versus small sludge balls. No further evidence to suggest acute cholecystitis. 2. Otherwise relatively normal right upper quadrant/liver ultrasound. Electronically Signed by Marlo King MD 02/05/2020 01:39 P PROGNOSIS: Fair ACTIVITY: [As tolerated]. DIET: As tolerated DISCHARGE PLAN: Patient is to be discharged home. He is to continue steroid taper. He is to complete antibiotics. He is to follow-up with PCP in 7-10 days. He is to follow-up with his Engineering Specialist Technician at [facility] DISPOSITION: 01 Home, Self-Care. DISCHARGE CONDITION: [Stable]. TIME SPENT ON DISCHARGE: Greater than 40 minutes. Vital Signs/I&Os Vital Signs Date Time Temp Pulse Resp B/P (MAP) Pulse Ox O2 Delivery O2 Flow Rate FiO2 02/08/20 08:26 2.0 02/08/20 08:17 96 155/77 02/08/20 06:00 99.0 18 94 Room Air 02/06/20 05:02 25 I&O- Last 24 Hours up to 6 AM 02/08/20 05:59 Intake Total 1835 ml Output Total 350 ml Balance 1485 ml Laboratory Data Labs 24H Laboratory Tests 2 02/08/20 05:35: Nucleated Red Blood Cells % (auto) 0.0, Anion Gap 2L, Glomerular Filtration Rate 58.3, Calcium Level 8.2L, Total Bilirubin 0.2#, Aspartate Amino Transf ( AST/SGOT) 136H, Alanine Aminotransferase (ALT/SGPT) 427H, Alkaline Phosphatase 105, Total Protein 5.7L, Albumin 2.7L, Albumin/Globulin Ratio 0.9 CBC/BMP Laboratory Tests 02/08/20 05:35 Microbiology Microbiology 02/05/20 Blood Culture - Preliminary, Resulted No Growth after 72 hours. All specime... 02/05/20 Blood Culture - Preliminary, Resulted No Growth after 72 hours. All specime... Discharge Medications Scheduled Aspirin (Aspirin EC) 81 Mg Tablet.dr, 81 MG PO DAILY, (Reported) Budesonide/Formoterol (Symbicort 160-4.5 Mcg Inhaler) 6 Gm Hfa.aer.ad, 2 PUFF INH BID, (Reported) Bupropion HCl (Bupropion HCl Sr) 150 Mg Tab.er.12h, 150 MG PO BID, (Reported) MORNING AND LUNCH Cefdinir (Cefdinir) 300 Mg Capsule, 300 MG PO BID Enalapril Maleate (Enalapril Maleate) 20 Mg Tablet, 20 MG PO DAILY, (Reported) Ergocalciferol (Vitamin D2) (Vitamin D2) 50,000 Units Cap, 50,000 UNITS PO QWEEK, (Reported) MONDAYS Hydrochlorothiazide (Hydrochlorothiazide) 12.5 Mg Capsule, 12.5 MG PO DAILY, ( Reported) Metoprolol Succinate (Metoprolol Succinate) 50 Mg Tab.er.24h, 50 MG PO DAILY, (Reported) Montelukast Sodium (Montelukast Sodium) 10 Mg Tablet, 10 MG PO QHS, (Reported) Pantoprazole Sodium (Pantoprazole Sodium) 40 Mg Tablet.dr, 40 MG PO DAILY Prednisone (Prednisone) 10 Mg Tablet, 10 MG PO TAPER Take 4 tabs daily x 3 days, then 3 tabs daily x 3 days, then 2 tabs daily x 3 days, then 1 tab daily x 3 days and stop Primidone (Primidone) 50 Mg Tablet, 100 MG PO TID, (Reported) Rosuvastatin Calcium (Rosuvastatin Calcium) 20 Mg Tablet, 10 MG PO QHS, (Reported) Theophylline Anhydrous (Theophylline) 400 Mg Tab.er.24h, 400 MG PO DAILY, (Reported) Tiotropium [place] (Spiriva) 18 Mcg Cap.w.dev, 18 MCG INH DAILY, (Reported) Scheduled PRN Albuterol Sulf (Albuterol Sulfate) 2.5 Mg/3 Ml Vial.neb, 2.5 MG INH QID PRN for SHORTNESS OF BREATH, (Reported) Albuterol Sulfate (Ventolin Hfa) 18 Gm Hfa.aer.ad, 2 PUFFS INH QID PRN for SHORTNESS OF BREATH, (Reported) Hydrocodone/Acetaminophen ([place] 10-325 Tablet) 1 Each Tablet, 1 TAB PO BID PRN for PAIN, (Reported) Allergies Coded Allergies: Sulfa (Sulfonamide Antibiotics) (Verified Allergy, Unknown, "break out", 01/05/19) MARCIAL SANTACRUZ DO Feb 08, 2020 18:56
== END 2020-02-08 13:26 | disposition home or self-care (01) | DRG 189 ==
LOC: EDBD 07:42 → M ED 07:42 → M ED INP 10:30 → ENRESERV 10:59 → M ICU 11:26 → M MSPAV 02-07 14:47
PROVIDERS: ADMIT Internal Medicine; ATTEND Internal Medicine Nephrology
DX: J96.21 Acute and chronic respiratory failure with hypoxia (principal); J44.1 Chronic obstructive pulmonary disease with (acute) exacerbation; N17.9 Acute kidney failure, unspecified; J96.22 Acute and chronic respiratory failure with hypercapnia; I10 Essential (primary) hypertension; E78.5 Hyperlipidemia, unspecified; Z79.82 Long term (current) use of aspirin; Z79.899 Other long term (current) drug therapy; Z88.2 Allergy status to sulfonamides; Z87.891 Personal history of nicotine dependence; Z77.090 Contact with and (suspected) exposure to asbestos; Z85.118 Personal history of other malignant neoplasm of bronchus and lung

== ENCOUNTER → 2020-04-12 | Outpatient (CLI) | payer OTHER ==
[~2020-04-12] MED LIST changes: +ASPI-161 PO; +CEFD1CAP8 PO; -ENAL20TA PO; +ENAL20TA11 PO; +HYDR12CA PO; +ISOVUE-370 76% 100ML VIAL As Ordered ONE; +PANT40TA29 PO
--- NOTE | 2020-05-22 08:00 | REP ---
CT OF THE ABDOMEN AND PELVIS WITH IV CONTRAST: HISTORY: Thoracic aortic aneurysm. COMPARISON: CT abdomen and pelvis study from 08/20/13. CONTRAST DOSE: 100 ml of intravenous Isovue 370 FINDINGS: There is a distal descending thoracic eccentric aneurysm with bulging of the right lateral aortic wall. This measures 4.9 cm in greatest transverse dimension and was described in detail from the chest CT from today's date. It is somewhat larger than it was in 2013. There is extensive irregular predominantly soft plaquing of the abdominal aorta, especially the infrarenal abdominal aorta. No other aortic aneurysm is seen. 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 The small upper pole renal artery on the left is occluded with considerable atrophy of the upper pole cortex. The lower pole artery on the left is patent but small. The renal arteries appear patent on the right. No renal mass or hydronephrosis is seen. The celiac and superior mesenteric artery origins are patent. I do not see definite perfusion in the [place]. There is a linear web-like plaque spanning the lumen from anterior to posterior at the mid-aortic level, well below the renal arteries consistent with a small web-like plaque. A short segment dissection is a possibility. There is a similar intimal flap or web-like plaque in the common iliac artery on the left just beyond its origin. No high grade stenosis is seen. There is a small 4 mm nodule in the dependent portion of the gallbladder suggesting a gravel-like calculus. No hepatic or splenic abnormality is seen. There is an accessory splenule at the pancreatic tail. Normal adrenal glands are seen. There is evidence of a right-sided ventriculoperitoneal shunt catheter in the anterior peritoneal space. The prostate, seminal vessels and urinary bladder are unremarkable. No bony destructive lesions is seen. IMPRESSION: Distal thoracic aortic aneurysm, as above. Extensive atherosclerotic plaquing in the aorta and iliacs with short areas of dissection or web-like plaquing seen. [facility]
--- NOTE | 2020-05-22 08:01 | REP ---
CT CHEST WITH IV CONTRAST HISTORY: Thoracic aortic aneurysm. CT CONTRAST DOSE: 100 mL of intravenous Isovue-370. COMPARISON: Chest CT study 12/30/2019. CT FINDINGS: There is a history of lung carcinoma and chronic fibrosis pattern is seen in the posterior superior aspect of the right lung right upper lobe. This is unchanged from the 12/30/2019 prior study. There is a stable subpleural nodule in the left lower lobe measuring 8.6 mm. Chronic areas of pleural thickening are seen on the right unchanged with some calcified pleural plaques. Extensive emphysematous changes are again noted. There is good opacification of the pulmonary arterial tree and no filling defect is seen to suggest pulmonary embolus. The ascending aorta measures 4.0 cm in AP dimension at the level of the right main pulmonary artery. There is mild atherosclerotic plaquing of the abdominal aorta. The distal descending aorta aneurysm is again seen just above the diaphragmatic hiatus. This measures 4.9 cm in greatest right to left transverse dimension. It is a saccular morphology aneurysm. Eccentric bulging of the right lateral wall. The transverse dimension in 2008 was 3.3 cm and in 2012 this measurement was 3.6 cm. There is mural thrombus along the posterior and right lateral wall of the aneurysm. Moderate plaquing is seen in the proximal abdominal aorta. The left renal artery appears to be occluded and there is advanced atrophy particularly in the upper pole of the left kidney again noted. An accessory splenule is visible in the left upper quadrant of the abdomen. Study is otherwise unremarkable. IMPRESSION: Stable post-treatment changes right upper lobe. Advanced emphysematous changes. Distal descending thoracic aortic aneurysm 4.9 cm in diameter slightly increased from remote prior studies. This is not changed significantly from 12/30/2019. 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 This is also unchanged. [facility]
== END ==
LOC: M RAD 14:00
PROVIDERS: ATTEND Surgery Vascular Surgery
DX: I71.2 Thoracic aortic aneurysm, without rupture (principal); Z85.118 Personal history of other malignant neoplasm of bronchus and lung; N28.0 Ischemia and infarction of kidney; J84.10 Pulmonary fibrosis, unspecified
CPT/HCPCS: 71260; 74177; Q9967

== ENCOUNTER → 2020-05-21 | Outpatient (CLI) | payer OTHER ==
[~2020-05-21] MED LIST changes: -ISOVUE-370 76% 100ML VIAL As Ordered ONE
--- NOTE | 2020-05-30 09:52 | REP ---
BILATERAL MAMMOGRAM WITH 3D TOMOSYNTHESIS AND LEFT BREAST ULTRASOUND HISTORY: Left retroareolar lump for one month. COMPARISON: Mammogram 12/15/2013. Bilateral mammography performed in the MLO and CC projections with 3D tomosynthesis. FINDINGS: Breasts are predominantly fat density with mild fibroglandular tissue in the right retroareolar region. There is moderate fibroglandular density in the left retroareolar region, which is ill-defined and has the appearance of asymmetric gynecomastia. On the prior mammogram of 12/15/2013, the findings were compatible with right-sided asymmetric gynecomastia. On the current mammogram, there is no evidence of mass or clustered microcalcifications. Real-time sonographic evaluation of the left retroareolar region demonstrates ill-defined fibroglandular density compatible with gynecomastia. IMPRESSION: ACR 2 benign. There are mammographic and sonographic findings of asymmetric left-sided gynecomastia with ill-defined fibroglandular tissue in the left retroareolar region at the site of the palpable lump. The findings are benign. This mammogram was interpreted with the aid of an FDA approved computer-aided detection system. Patient letter: 2. GARY
== END ==
LOC: M WHC 10:49
PROVIDERS: ATTEND Physician Assistant Medical
DX: N63.42 Unspecified lump in left breast, subareolar (principal)
CPT/HCPCS: 76642; 77066; G0279

== ENCOUNTER → 2021-08-29 | Outpatient (CLI) | payer MEDICARE, OTHER ==
[~2021-08-29] MED LIST changes: -CEFD1CAP8 PO; +CEFD300C41 PO; +ERGO500029 PO; +METH-1165 PO; -METH750T2 PO; -MONT10TA4 PO; +MONT10TA97 PO; -VITA50005 PO
== END ==
LOC: M PLAIMG 13:57
PROVIDERS: ATTEND Physician Assistant
DX: N20.0 Calculus of kidney (principal)
CPT/HCPCS: 74018; G0463

== ENCOUNTER → 2021-09-26 | Outpatient (CLI) | payer OTHER | LOC: M PLAIMG 09:50 | PROVIDERS: ATTEND Internal Medicine Pulmonary Disease | DX: J44.9 Chronic obstructive pulmonary disease, unspecified (principal); R91.8 Other nonspecific abnormal finding of lung field ==

== ENCOUNTER → 2022-03-07 | Outpatient (CLI) | payer OTHER ==
[~2022-03-07] MED LIST changes: +ALBU2.5V10 INH; -ALBU83IN INH
== END ==
LOC: M WUC 13:39
PROVIDERS: ATTEND Student in an Organized Health Care Education/Training Program
DX: L03.113 Cellulitis of right upper limb (principal)

== ENCOUNTER → 2022-03-24 | Outpatient (CLI) | payer OTHER | LOC: M RAD 12:25 | PROVIDERS: ATTEND Radiology Radiation Oncology | DX: C34.11 Malignant neoplasm of upper lobe, right bronchus or lung (principal) ==

== ENCOUNTER → 2022-04-16 | Outpatient (CLI) | payer OTHER ==
[~2022-04-16] MED LIST changes: +AMLO10TA PO; +CYAN2500 SL; +EQL400CA9 PO
== END ==
LOC: M LABSMTC 10:01
PROVIDERS: ATTEND Anesthesiology
DX: Z11.52 Encounter for screening for COVID-19 (principal)

== ENCOUNTER 2022-04-21 10:41 | Day surgery (SDC) | payer OTHER ==
[~2022-04-21] VITALS: Ht 172.7 cm; Wt 73.0 kg
[~2022-04-21 10:41] MED LIST changes: +NS 1,000 ML IV ONE
[2022-04-21] MEDS ORDERED: propofoL 200 MG/20 ML VIAL As Ordered ONE (11:59)
[2022-04-21] MEDS ORDERED: LIDOCAINE 2% 100MG/5ML SDV (FOR ANES.) As Ordered ONE (11:59)
[2022-04-21 12:50] VITALS: BP 145/70
[2022-04-22] MEDS ORDERED: ANEC4CRE3 TOP (18:48)
[2022-04-22] MEDS ORDERED: TRAM50TA2 PO (18:48)
== END 2022-04-21 12:58 | disposition home or self-care (01) ==
LOC: M OPP 10:41
PROVIDERS: ATTEND Internal Medicine Gastroenterology
DX: Z12.11 Encounter for screening for malignant neoplasm of colon (principal); Z86.010 Personal history of colon polyps; K57.30 Diverticulosis of large intestine without perforation or abscess without bleeding; K64.0 First degree hemorrhoids; I10 Essential (primary) hypertension; J44.9 Chronic obstructive pulmonary disease, unspecified; Z79.02 Long term (current) use of antithrombotics/antiplatelets; Z79.2 Long term (current) use of antibiotics; Z79.51 Long term (current) use of inhaled steroids; Z79.899 Other long term (current) drug therapy; Z88.2 Allergy status to sulfonamides; Z87.442 Personal history of urinary calculi; Z86.79 Personal history of other diseases of the circulatory system; Z85.118 Personal history of other malignant neoplasm of bronchus and lung; Z92.21 Personal history of antineoplastic chemotherapy; Z92.3 Personal history of irradiation; F17.200 Nicotine dependence, unspecified, uncomplicated

== ENCOUNTER 2022-04-22 15:15 | Emergency (ER) | payer OTHER ==
[~2022-04-22] VITALS: Ht 172.7 cm; Wt 73.2 kg
[~2022-04-22 15:15] MED LIST changes: -NS 1,000 ML IV ONE
[2022-04-22] MEDS ORDERED: NORCO, ANEXSIA 5/325MG TABLET (HYDROcodone/ACETAMINOPHEN) PO ONE (18:45)
[2022-04-22] MEDS ORDERED: TRAM50TA2 PO (18:48)
[2022-04-22] MEDS ORDERED: ANEC4CRE3 TOP (18:48)
[2022-04-22 19:08] VITALS: BP 156/90
== END 2022-04-22 19:10 | disposition home or self-care (01) ==
LOC: M ED 17:46
DX: M25.512 Pain in left shoulder (principal); J44.9 Chronic obstructive pulmonary disease, unspecified; F17.200 Nicotine dependence, unspecified, uncomplicated; Z88.2 Allergy status to sulfonamides; Z79.51 Long term (current) use of inhaled steroids; Z79.899 Other long term (current) drug therapy

== ENCOUNTER 2022-11-20 17:57 | Inpatient (IN) | payer OTHER, MEDICARE ==
[~2022-11-20] VITALS: Ht 172.7 cm; Wt 76.4 kg
[~2022-11-20 17:57] MED LIST changes: +ANEC4CRE3 TOP; +ENAL1TAB52 PO; -ENAL20TA11 PO; +TRAM50TA2 PO
[2022-11-20] MEDS ORDERED: ALBUTEROL SULFATE 2.5MG/0.5ML INH NEB SOLN NEB ONE (18:20)
[2022-11-20] MEDS ORDERED: IPRATROPIUM 0.5MG/ALBUTEROL 2.5MG INH SOL UD 3ML (DUONEB) NEB ONE (18:20)
[2022-11-20 18:52] LABS: BASO % 0.5 % (0.0-1.0); EOS # 0.1 10^3/uL (0.0-0.5); EOS % 1.6 % (0.0-3.0); HEMATOCRIT 42.3 % (42.0-52.0); HEMOGLOBIN 13.1 g/dl (13.5-17.5); LYMPH # 0.7 10^3/uL (1.5-5.0); MEAN CORPUSCULAR HEMOGLOBIN 30.5 pg (27.0-33.0); MEAN CORPUSCULAR VOLUME 98.4 fl (80.0-96.0); MONO # 0.8 10^3/uL (0.0-0.8); MONO % 9.1 % (2.0-8.0); NEUTROPHILS # 6.5 10^3/uL (1.5-8.5); NEUTROPHILS % 79.2 % (36.0-66.0); PLATELET COUNT, AUTOMATED 184 10^3/uL (150-450); WHITE BLOOD COUNT 8.2 10^3/uL (4.0-10.0)
[2022-11-20 19:26] LABS: ALBUMIN 3.4 G/DL (3.2-5.2); ALKALINE PHOSPHATASE 130 U/L (46-116); ALT/SGPT 10 U/L (7.0-40); AST/SGOT < 8 U/L (<34); BILIRUBIN,DIRECT < 0.1 MG/DL (<0.4); BILIRUBIN,TOTAL 0.2 MG/DL (0.3-1.2); BLOOD UREA NITROGEN 29 MG/DL (9-23); CALCIUM LEVEL 9.1 MG/DL (8.3-10.6); CARBON DIOXIDE LEVEL > 40.0 MMOL/L (20-31); CHLORIDE LEVEL 98 MMOL/L (98-107); CREATININE FOR GFR 1.59 MG/DL (0.70-1.30); GLOMERULAR FILTRATION RATE 45.4 (>42); GLUCOSE, FASTING 124 MG/DL (74-106); POTASSIUM SERUM 4.4 MMOL/L (3.5-5.1); SODIUM LEVEL 141 MMOL/L (136-145); THYROID STIMULATING HORMONE 0.889 uIU/ML (0.55-4.78); THYROXINE (T4) 7.8 UG/DL (4.5-10.9); TOTAL PROTEIN 6.6 G/DL (5.7-8.2)
[2022-11-20] MEDS: IPRATROPIUM 0.5MG/ALBUTEROL 2.5MG INH SOL UD 3ML (DUONEB) NEB SCH (20:00)
[2022-11-20 20:30] LABS: ABG BASE EXCESS 5.6 (-2.0-2.0); ABG HCO3 34.2 MEQ/L (22.0-26.0); ABG O2 SATURATION 97.8 % (95.0-99.0); ABG PARTIAL PRESSURE O2 107.3 mmHg (75.0-100.0); ABG STANDARD HCO3 29.5 MEQ/L (22.0-26.0); ABG TOTAL CO2 36.3 MEQ/L (23.0-31.0); ABG pH (ARTERIAL) 7.312 UNITS (7.350-7.450)
[2022-11-20 20:33] LABS: ABG PARTIAL PRESSURE CO2 69.1 mmHg (35.0-45.0)
[2022-11-20] MEDS ORDERED: NS 500 ML IV SCH (21:00)
[2022-11-20] MEDS ORDERED: GLUCOSE 4GM CHEW TABLET PO PRN (21:05)
[2022-11-20] MEDS ORDERED: ALBUTEROL SULFATE 2.5MG/0.5ML INH NEB SOLN NEB PRN (21:05)
[2022-11-20] MEDS ORDERED: DEXTROSE 50% 50ML SYRINGE IV PRN (21:05)
[2022-11-20] MEDS ORDERED: GLUCAGON INJ 1MG VIAL SC PRN (21:05)
[2022-11-20] MEDS ORDERED: BROV15NE INH (21:59)
[2022-11-20] MEDS ORDERED: ACET-907 PO (21:59)
[2022-11-20] MEDS ORDERED: HYDR-4517 PO (21:59)
[2022-11-20] MEDS ORDERED: HOME MED LIST COMPLETE! XX SCH (22:00)
[2022-11-20 22:49] LABS: CALCIUM LEVEL 8.4 MG/DL (8.3-10.6); CREATININE FOR GFR 1.4 MG/DL (0.70-1.30); GLOMERULAR FILTRATION RATE 52.6 (>42); POTASSIUM SERUM 4.6 MMOL/L (3.5-5.1)
[2022-11-20 22:59] VITALS: BP 148/84
[2022-11-20 23:00] VITALS: BP 170/88
[2022-11-20] MEDS ORDERED: PILL CUTTER 1 EACH XX PRN (23:20)
[2022-11-20] MEDS ORDERED: ONDANSETRON 4MG ORAL DISINTEGRATING TAB PO PRN (23:25)
[2022-11-20] MEDS: INSULIN LISPRO (NovoLOG) PER UNIT SC SCH (23:30)
[2022-11-20] MEDS: methylPREDNISolone 40MG 1ML VIAL IV SCH (23:31)
[2022-11-20] MEDS: PRIMIDONE 50MG TAB PO SCH (23:33)
[2022-11-21] VITALS (8 sets, daily range): BP systolic 107–167; BP diastolic 55–85
[2022-11-21] MEDS: NORCO, ANEXSIA 5/325MG TABLET (HYDROcodone/ACETAMINOPHEN) PO PRN ×2 (00:17→21:42)
[2022-11-21] MEDS: IPRATROPIUM 0.5MG/ALBUTEROL 2.5MG INH SOL UD 3ML (DUONEB) NEB SCH ×4 (02:37→19:12)
[2022-11-21] MEDS: methylPREDNISolone 40MG 1ML VIAL IV SCH ×4 (03:39→21:28)
[2022-11-21] MEDS: ACETAMINOPHEN TAB 650MG DOSE (2X325MG) PO PRN (03:39)
[2022-11-21 05:48] LABS: ABG BASE EXCESS 5.8 (-2.0-2.0); ABG HCO3 33.9 MEQ/L (22.0-26.0); ABG O2 SATURATION 94.1 % (95.0-99.0); ABG PARTIAL PRESSURE O2 72.8 mmHg (75.0-100.0); ABG STANDARD HCO3 29.6 MEQ/L (22.0-26.0); ABG pH (ARTERIAL) 7.319 UNITS (7.350-7.450)
[2022-11-21 05:54] LABS: ABG PARTIAL PRESSURE CO2 67.5 mmHg (35.0-45.0)
[2022-11-21] MEDS: INSULIN LISPRO (NovoLOG) PER UNIT SC SCH (06:16)
[2022-11-21] MEDS: ASPIRIN 81MG ENTERIC TABLET PO SCH (09:06)
[2022-11-21] MEDS: hydroCHLOROthiazide 12.5 MG CAPSULE PO SCH (09:06)
[2022-11-21] MEDS: METOPROLOL SUCC (TopROL XL) 50MG **XL** TAB PO SCH (09:07)
[2022-11-21] MEDS: amLODIPine 5 MG TAB PO SCH (09:07)
[2022-11-21] MEDS: buPROPion **SR TABLET** (ZYBAN) 150MG PO SCH ×2 (09:08→21:29)
[2022-11-21] MEDS: PRIMIDONE 50MG TAB PO SCH ×3 (09:08→21:30)
[2022-11-21] MEDS: THEOPHYLLINE (THEO-24) 100MG SR **CAPSULE PO SCH (09:08)
[2022-11-21] MEDS: HEPARIN SOD (PORCINE) 5000UNITS/ML 1ML VIAL/SYRINGE SC SCH ×2 (09:09→21:28)
[2022-11-21] MEDS: cefTRIAXone SOD 1 GM in D5W MINI-BAG PLUS 50 ML IV SCH (10:35)
[2022-11-21] MEDS: PANTOPRAZOLE 40MG TAB (PROTONIX) PO SCH (10:38)
[2022-11-21] MEDS: BUDESONIDE 0.5 MG/2 ML INHALATION SUSPENSION INH SCH ×2 (13:23→19:12)
[2022-11-21] MEDS: ROSUVASTATIN 10 MG TAB (CRESTOR) PO SCH (21:29)
[2022-11-22] VITALS (8 sets, daily range): BP systolic 141–181; BP diastolic 64–86; O2SAT 97
[2022-11-22] MEDS: IPRATROPIUM 0.5MG/ALBUTEROL 2.5MG INH SOL UD 3ML (DUONEB) NEB SCH ×4 (01:17→20:33)
[2022-11-22] MEDS: methylPREDNISolone 40MG 1ML VIAL IV SCH ×4 (03:49→22:25)
[2022-11-22 04:19] LABS: HEMATOCRIT 38.8 % (42.0-52.0); MEAN CORPUSCULAR HEMOGLOBIN 30.6 pg (27.0-33.0); MEAN CORPUSCULAR HGB CONC 30.9 g/dl (32.0-36.5); PLATELET COUNT, AUTOMATED 180 10^3/uL (150-450); RED BLOOD COUNT 3.92 10^6/uL (4.30-6.10); WHITE BLOOD COUNT 8.5 10^3/uL (4.0-10.0)
[2022-11-22 04:42] LABS: THEOPHYLLINE LEVEL 4.1 UG/ML (10.0-20.0)
[2022-11-22 04:46] LABS: CALCIUM LEVEL 8.3 MG/DL (8.3-10.6); CREATININE FOR GFR 1.5 MG/DL (0.70-1.30); GLOMERULAR FILTRATION RATE 48.6 (>42); POTASSIUM SERUM 4.7 MMOL/L (3.5-5.1)
[2022-11-22] MEDS: NORCO, ANEXSIA 5/325MG TABLET (HYDROcodone/ACETAMINOPHEN) PO PRN ×3 (05:45→20:32)
[2022-11-22 05:46] LABS: ABG BASE EXCESS 6.1 (-2.0-2.0); ABG O2 SATURATION 98.4 % (95.0-99.0); ABG PARTIAL PRESSURE O2 133.1 mmHg (75.0-100.0); ABG STANDARD HCO3 30.1 MEQ/L (22.0-26.0); ABG TOTAL CO2 37.3 MEQ/L (23.0-31.0); ABG pH (ARTERIAL) 7.289 UNITS (7.350-7.450)
[2022-11-22 05:49] LABS: ABG PARTIAL PRESSURE CO2 74.7 mmHg (35.0-45.0)
[2022-11-22] MEDS: THEOPHYLLINE (THEO-24) 100MG SR **CAPSULE PO SCH (07:45)
[2022-11-22] MEDS: ASPIRIN 81MG ENTERIC TABLET PO SCH (07:46)
[2022-11-22] MEDS: amLODIPine 5 MG TAB PO SCH (07:47)
[2022-11-22] MEDS: PRIMIDONE 50MG TAB PO SCH ×3 (07:52→20:33)
[2022-11-22] MEDS: hydroCHLOROthiazide 12.5 MG CAPSULE PO SCH (07:52)
[2022-11-22] MEDS: METOPROLOL SUCC (TopROL XL) 50MG **XL** TAB PO SCH (07:53)
[2022-11-22] MEDS: PANTOPRAZOLE 40MG TAB (PROTONIX) PO SCH (07:53)
[2022-11-22] MEDS: HEPARIN SOD (PORCINE) 5000UNITS/ML 1ML VIAL/SYRINGE SC SCH ×2 (07:56→20:33)
[2022-11-22] MEDS: buPROPion **SR TABLET** (ZYBAN) 150MG PO SCH ×2 (07:56→20:33)
[2022-11-22] MEDS: BUDESONIDE 0.5 MG/2 ML INHALATION SUSPENSION INH SCH ×2 (09:16→20:33)
[2022-11-22] MEDS ORDERED: traMADol 50 MG TAB PO ONE (10:15)
[2022-11-22] MEDS: cefTRIAXone SOD 1 GM in D5W MINI-BAG PLUS 50 ML IV SCH (11:00)
[2022-11-22 16:22] LABS: ABG BASE EXCESS 7.7 (-2.0-2.0); ABG HCO3 37.1 MEQ/L (22.0-26.0); ABG O2 SATURATION 94.2 % (95.0-99.0); ABG PARTIAL PRESSURE O2 73.8 mmHg (75.0-100.0); ABG STANDARD HCO3 31.4 MEQ/L (22.0-26.0); ABG TOTAL CO2 39.5 MEQ/L (23.0-31.0); ABG pH (ARTERIAL) 7.288 UNITS (7.350-7.450)
[2022-11-22 16:24] LABS: ABG PARTIAL PRESSURE CO2 79.2 mmHg (35.0-45.0)
[2022-11-22] MEDS: ROSUVASTATIN 10 MG TAB (CRESTOR) PO SCH (20:33)
[2022-11-22] MEDS: guaiFENesin ER 600 MG TAB PO SCH (20:33)
[2022-11-23] VITALS (8 sets, daily range): BP systolic 155–172; BP diastolic 76–112; O2SAT 95
[2022-11-23] MEDS: IPRATROPIUM 0.5MG/ALBUTEROL 2.5MG INH SOL UD 3ML (DUONEB) NEB SCH ×4 (02:43→20:00)
[2022-11-23] MEDS: methylPREDNISolone 40MG 1ML VIAL IV SCH ×3 (03:49→18:20)
[2022-11-23 04:43] LABS: HEMATOCRIT 36.4 % (42.0-52.0); HEMOGLOBIN 11.3 g/dl (13.5-17.5); MEAN CORPUSCULAR HEMOGLOBIN 30.6 pg (27.0-33.0); MEAN CORPUSCULAR VOLUME 98.6 fl (80.0-96.0); PLATELET COUNT, AUTOMATED 170 10^3/uL (150-450); RED BLOOD COUNT 3.69 10^6/uL (4.30-6.10); WHITE BLOOD COUNT 5.7 10^3/uL (4.0-10.0)
[2022-11-23 05:08] LABS: CALCIUM LEVEL 8.4 MG/DL (8.3-10.6); CREATININE FOR GFR 1.35 MG/DL (0.70-1.30); GLOMERULAR FILTRATION RATE 54.8 (>42); POTASSIUM SERUM 4.8 MMOL/L (3.5-5.1)
[2022-11-23 06:31] LABS: ABG BASE EXCESS 7.3 (-2.0-2.0); ABG HCO3 35.9 MEQ/L (22.0-26.0); ABG O2 SATURATION 94.3 % (95.0-99.0); ABG PARTIAL PRESSURE O2 78.8 mmHg (75.0-100.0); ABG STANDARD HCO3 31.1 MEQ/L (22.0-26.0); ABG TOTAL CO2 38.1 MEQ/L (23.0-31.0); ABG pH (ARTERIAL) 7.307 UNITS (7.350-7.450)
[2022-11-23 06:36] LABS: ABG PARTIAL PRESSURE CO2 73.4 mmHg (35.0-45.0)
[2022-11-23] MEDS: BUDESONIDE 0.5 MG/2 ML INHALATION SUSPENSION INH SCH ×2 (08:19→20:00)
[2022-11-23] MEDS: THEOPHYLLINE (THEO-24) 100MG SR **CAPSULE PO SCH (09:00)
[2022-11-23] MEDS: CEFEPIME HCL 2 GM in D5W MINI-BAG PLUS 50 ML IV SCH ×2 (09:00→21:17)
[2022-11-23] MEDS: PRIMIDONE 50MG TAB PO SCH ×3 (09:01→21:16)
[2022-11-23] MEDS: ASPIRIN 81MG ENTERIC TABLET PO SCH (09:01)
[2022-11-23] MEDS: buPROPion **SR TABLET** (ZYBAN) 150MG PO SCH ×2 (09:01→21:16)
[2022-11-23] MEDS: hydroCHLOROthiazide 12.5 MG CAPSULE PO SCH (09:01)
[2022-11-23] MEDS: guaiFENesin ER 600 MG TAB PO SCH ×2 (09:01→21:16)
[2022-11-23] MEDS: PANTOPRAZOLE 40MG TAB (PROTONIX) PO SCH (09:01)
[2022-11-23] MEDS: METOPROLOL SUCC (TopROL XL) 50MG **XL** TAB PO SCH (09:02)
[2022-11-23] MEDS: amLODIPine 5 MG TAB PO SCH (09:02)
[2022-11-23] MEDS: HEPARIN SOD (PORCINE) 5000UNITS/ML 1ML VIAL/SYRINGE SC SCH ×2 (09:03→21:17)
[2022-11-23] MEDS: NORCO, ANEXSIA 5/325MG TABLET (HYDROcodone/ACETAMINOPHEN) PO PRN ×2 (09:03→16:51)
[2022-11-23] MEDS: ROSUVASTATIN 10 MG TAB (CRESTOR) PO SCH (21:16)
[2022-11-24] VITALS (8 sets, daily range): BP systolic 143–186; BP diastolic 78–101; O2SAT 94
[2022-11-24] MEDS: IPRATROPIUM 0.5MG/ALBUTEROL 2.5MG INH SOL UD 3ML (DUONEB) NEB SCH ×4 (02:33→20:23)
[2022-11-24] MEDS: methylPREDNISolone 40MG 1ML VIAL IV SCH ×3 (03:11→17:06)
[2022-11-24 05:10] LABS: HEMATOCRIT 38.8 % (42.0-52.0); HEMOGLOBIN 12.1 g/dl (13.5-17.5); MEAN CORPUSCULAR HEMOGLOBIN 30.6 pg (27.0-33.0); MEAN CORPUSCULAR HGB CONC 31.2 g/dl (32.0-36.5); MEAN CORPUSCULAR VOLUME 98.2 fl (80.0-96.0); PLATELET COUNT, AUTOMATED 165 10^3/uL (150-450); RED BLOOD COUNT 3.95 10^6/uL (4.30-6.10); WHITE BLOOD COUNT 5.8 10^3/uL (4.0-10.0)
[2022-11-24 05:39] LABS: CALCIUM LEVEL 8.4 MG/DL (8.3-10.6); CREATININE FOR GFR 1.38 MG/DL (0.70-1.30); GLOMERULAR FILTRATION RATE 53.5 (>42); POTASSIUM SERUM 4.6 MMOL/L (3.5-5.1)
[2022-11-24 06:13] LABS: ABG BASE EXCESS 8.9 (-2.0-2.0); ABG HCO3 36.6 MEQ/L (22.0-26.0); ABG O2 SATURATION 98.3 % (95.0-99.0); ABG PARTIAL PRESSURE O2 116.8 mmHg (75.0-100.0); ABG STANDARD HCO3 32.7 MEQ/L (22.0-26.0); ABG TOTAL CO2 38.6 MEQ/L (23.0-31.0)
[2022-11-24 06:16] LABS: ABG PARTIAL PRESSURE CO2 66.3 mmHg (35.0-45.0)
[2022-11-24] MEDS: BUDESONIDE 0.5 MG/2 ML INHALATION SUSPENSION INH SCH ×2 (07:35→20:23)
[2022-11-24] MEDS: CEFEPIME HCL 2 GM in D5W MINI-BAG PLUS 50 ML IV SCH ×2 (08:31→20:06)
[2022-11-24] MEDS: guaiFENesin ER 600 MG TAB PO SCH ×2 (08:32→20:11)
[2022-11-24] MEDS: PANTOPRAZOLE 40MG TAB (PROTONIX) PO SCH (08:32)
[2022-11-24] MEDS: amLODIPine 5 MG TAB PO SCH (08:32)
[2022-11-24] MEDS: ASPIRIN 81MG ENTERIC TABLET PO SCH (08:33)
[2022-11-24] MEDS: THEOPHYLLINE (THEO-24) 100MG SR **CAPSULE PO SCH (08:33)
[2022-11-24] MEDS: hydroCHLOROthiazide 12.5 MG CAPSULE PO SCH (08:33)
[2022-11-24] MEDS: METOPROLOL SUCC (TopROL XL) 50MG **XL** TAB PO SCH (08:33)
[2022-11-24] MEDS: buPROPion **SR TABLET** (ZYBAN) 150MG PO SCH ×2 (08:33→20:10)
[2022-11-24] MEDS: HEPARIN SOD (PORCINE) 5000UNITS/ML 1ML VIAL/SYRINGE SC SCH ×2 (08:34→20:11)
[2022-11-24] MEDS: PRIMIDONE 50MG TAB PO SCH ×3 (09:44→20:10)
[2022-11-24] MEDS: ROSUVASTATIN 10 MG TAB (CRESTOR) PO SCH (20:10)
[2022-11-24] MEDS: NORCO, ANEXSIA 5/325MG TABLET (HYDROcodone/ACETAMINOPHEN) PO PRN (21:31)
[2022-11-25] VITALS: BP 150/85
[2022-11-25] MEDS: methylPREDNISolone 40MG 1ML VIAL IV SCH ×2 (01:50→14:51)
[2022-11-25] MEDS: IPRATROPIUM 0.5MG/ALBUTEROL 2.5MG INH SOL UD 3ML (DUONEB) NEB SCH ×4 (01:59→21:20)
[2022-11-25 04:00] VITALS: BP 161/78
[2022-11-25 05:41] LABS: HEMATOCRIT 38.8 % (42.0-52.0); HEMOGLOBIN 12.1 g/dl (13.5-17.5); MEAN CORPUSCULAR HEMOGLOBIN 30.3 pg (27.0-33.0); MEAN CORPUSCULAR HGB CONC 31.2 g/dl (32.0-36.5); PLATELET COUNT, AUTOMATED 183 10^3/uL (150-450); WHITE BLOOD COUNT 5.9 10^3/uL (4.0-10.0)
[2022-11-25 06:12] LABS: CALCIUM LEVEL 8.3 MG/DL (8.3-10.6); CREATININE FOR GFR 1.39 MG/DL (0.70-1.30); POTASSIUM SERUM 4.4 MMOL/L (3.5-5.1)
[2022-11-25 08:02] VITALS: BP 189/101
[2022-11-25] MEDS: CEFEPIME HCL 2 GM in D5W MINI-BAG PLUS 50 ML IV SCH ×2 (08:02→20:09)
[2022-11-25] MEDS: HEPARIN SOD (PORCINE) 5000UNITS/ML 1ML VIAL/SYRINGE SC SCH ×2 (08:03→20:09)
[2022-11-25] MEDS: guaiFENesin ER 600 MG TAB PO SCH ×2 (08:03→20:07)
[2022-11-25] MEDS: PANTOPRAZOLE 40MG TAB (PROTONIX) PO SCH (08:03)
[2022-11-25] MEDS: METOPROLOL SUCC (TopROL XL) 50MG **XL** TAB PO SCH (08:04)
[2022-11-25] MEDS: THEOPHYLLINE (THEO-24) 100MG SR **CAPSULE PO SCH (08:04)
[2022-11-25] MEDS: PRIMIDONE 50MG TAB PO SCH ×3 (08:04→20:08)
[2022-11-25] MEDS: buPROPion **SR TABLET** (ZYBAN) 150MG PO SCH ×2 (08:05→20:07)
[2022-11-25] MEDS: ASPIRIN 81MG ENTERIC TABLET PO SCH (08:05)
[2022-11-25] MEDS: NORCO, ANEXSIA 5/325MG TABLET (HYDROcodone/ACETAMINOPHEN) PO PRN ×2 (08:09→20:08)
[2022-11-25] MEDS: BUDESONIDE 0.5 MG/2 ML INHALATION SUSPENSION INH SCH ×2 (08:11→21:20)
[2022-11-25 11:09] VITALS: BP 162/80
[2022-11-25 16:20] VITALS: BP 172/86
[2022-11-25 19:53] VITALS: BP 166/87
[2022-11-25] MEDS: ROSUVASTATIN 10 MG TAB (CRESTOR) PO SCH (20:07)
[2022-11-26] MEDS: IPRATROPIUM 0.5MG/ALBUTEROL 2.5MG INH SOL UD 3ML (DUONEB) NEB SCH ×4 (01:59→20:10)
[2022-11-26] MEDS: methylPREDNISolone 40MG 1ML VIAL IV SCH ×2 (02:15→15:21)
[2022-11-26 05:32] LABS: ABG HCO3 37.3 MEQ/L (22.0-26.0); ABG O2 SATURATION 94.2 % (95.0-99.0); ABG PARTIAL PRESSURE O2 71.7 mmHg (75.0-100.0); ABG STANDARD HCO3 32.7 MEQ/L (22.0-26.0); ABG TOTAL CO2 39.4 MEQ/L (23.0-31.0); ABG pH (ARTERIAL) 7.346 UNITS (7.350-7.450)
[2022-11-26 05:36] LABS: ABG PARTIAL PRESSURE CO2 69.7 mmHg (35.0-45.0)
[2022-11-26 07:02] VITALS: BP 176/80
[2022-11-26] MEDS: BUDESONIDE 0.5 MG/2 ML INHALATION SUSPENSION INH SCH ×2 (07:15→20:10)
[2022-11-26 07:22] LABS: HEMATOCRIT 39.6 % (42.0-52.0); HEMOGLOBIN 12.3 g/dl (13.5-17.5); MEAN CORPUSCULAR HEMOGLOBIN 30.1 pg (27.0-33.0); MEAN CORPUSCULAR HGB CONC 31.1 g/dl (32.0-36.5); MEAN CORPUSCULAR VOLUME 97.1 fl (80.0-96.0); PLATELET COUNT, AUTOMATED 182 10^3/uL (150-450); RED BLOOD COUNT 4.08 10^6/uL (4.30-6.10); WHITE BLOOD COUNT 5.5 10^3/uL (4.0-10.0)
[2022-11-26 07:41] LABS: CALCIUM LEVEL 8.6 MG/DL (8.3-10.6); CREATININE FOR GFR 1.31 MG/DL (0.70-1.30); GLOMERULAR FILTRATION RATE 56.8 (>42); POTASSIUM SERUM 4.2 MMOL/L (3.5-5.1)
[2022-11-26] MEDS: CEFEPIME HCL 2 GM in D5W MINI-BAG PLUS 50 ML IV SCH (09:24)
[2022-11-26] MEDS: HEPARIN SOD (PORCINE) 5000UNITS/ML 1ML VIAL/SYRINGE SC SCH ×2 (09:25→20:00)
[2022-11-26] MEDS: PANTOPRAZOLE 40MG TAB (PROTONIX) PO SCH (09:27)
[2022-11-26] MEDS: ASPIRIN 81MG ENTERIC TABLET PO SCH (09:28)
[2022-11-26] MEDS: guaiFENesin ER 600 MG TAB PO SCH ×2 (09:28→20:00)
[2022-11-26] MEDS: buPROPion **SR TABLET** (ZYBAN) 150MG PO SCH ×2 (09:28→20:00)
[2022-11-26] MEDS: METOPROLOL SUCC (TopROL XL) 50MG **XL** TAB PO SCH (09:30)
[2022-11-26] MEDS: THEOPHYLLINE (THEO-24) 100MG SR **CAPSULE PO SCH (09:32)
[2022-11-26] MEDS: PRIMIDONE 50MG TAB PO SCH ×3 (09:34→20:00)
[2022-11-26] MEDS: LevoFLOXacin 750 MG TABLET PO SCH (17:17)
[2022-11-26] MEDS: ROSUVASTATIN 10 MG TAB (CRESTOR) PO SCH (19:59)
[2022-11-26] MEDS: NORCO, ANEXSIA 5/325MG TABLET (HYDROcodone/ACETAMINOPHEN) PO PRN (20:02)
[2022-11-26] MEDS: guaiFENesin DM LIQ 10ML UD PO PRN (21:06)
[2022-11-26 22:01] VITALS: BP 155/81
[2022-11-27] MEDS: IPRATROPIUM 0.5MG/ALBUTEROL 2.5MG INH SOL UD 3ML (DUONEB) NEB SCH ×4 (01:13→23:31)
[2022-11-27] MEDS: methylPREDNISolone 40MG 1ML VIAL IV SCH (02:14)
[2022-11-27 05:41] LABS: ABG BASE EXCESS 6.9 (-2.0-2.0); ABG HCO3 34.2 MEQ/L (22.0-26.0); ABG O2 SATURATION 96.4 % (95.0-99.0); ABG PARTIAL PRESSURE O2 88.3 mmHg (75.0-100.0); ABG STANDARD HCO3 30.8 MEQ/L (22.0-26.0); ABG TOTAL CO2 36.1 MEQ/L (23.0-31.0); ABG pH (ARTERIAL) 7.361 UNITS (7.350-7.450)
[2022-11-27 05:42] LABS: ABG PARTIAL PRESSURE CO2 61.8 mmHg (35.0-45.0)
[2022-11-27 05:51] VITALS: BP 159/81
[2022-11-27 05:54] LABS: HEMATOCRIT 38.6 % (42.0-52.0); HEMOGLOBIN 12.2 g/dl (13.5-17.5); MEAN CORPUSCULAR HEMOGLOBIN 30.6 pg (27.0-33.0); MEAN CORPUSCULAR HGB CONC 31.6 g/dl (32.0-36.5); MEAN CORPUSCULAR VOLUME 96.7 fl (80.0-96.0); PLATELET COUNT, AUTOMATED 178 10^3/uL (150-450); RED BLOOD COUNT 3.99 10^6/uL (4.30-6.10)
[2022-11-27 06:26] LABS: CALCIUM LEVEL 8.7 MG/DL (8.3-10.6); CREATININE FOR GFR 1.29 MG/DL (0.70-1.30); GLOMERULAR FILTRATION RATE 57.8 (>42); POTASSIUM SERUM 4.4 MMOL/L (3.5-5.1)
[2022-11-27] MEDS: BUDESONIDE 0.5 MG/2 ML INHALATION SUSPENSION INH SCH ×2 (07:11→19:33)
[2022-11-27] MEDS: predniSONE 10MG TAB PO SCH (07:58)
[2022-11-27] MEDS: THEOPHYLLINE (THEO-24) 100MG SR **CAPSULE PO SCH (08:00)
[2022-11-27] MEDS: PRIMIDONE 50MG TAB PO SCH ×3 (08:00→20:03)
[2022-11-27] MEDS: HEPARIN SOD (PORCINE) 5000UNITS/ML 1ML VIAL/SYRINGE SC SCH ×2 (08:00→20:02)
[2022-11-27] MEDS: buPROPion **SR TABLET** (ZYBAN) 150MG PO SCH ×2 (08:01→20:02)
[2022-11-27] MEDS: ASPIRIN 81MG ENTERIC TABLET PO SCH (08:01)
[2022-11-27] MEDS: guaiFENesin ER 600 MG TAB PO SCH ×2 (08:01→20:03)
[2022-11-27] MEDS: METOPROLOL SUCC *XL* 25MG TAB (TopROL *XL*) PO SCH (08:01)
[2022-11-27] MEDS: PANTOPRAZOLE 40MG TAB (PROTONIX) PO SCH (08:02)
[2022-11-27] MEDS: NORCO, ANEXSIA 5/325MG TABLET (HYDROcodone/ACETAMINOPHEN) PO PRN ×2 (12:50→20:04)
[2022-11-27 14:33] VITALS: BP 139/66
[2022-11-27] MEDS: guaiFENesin DM LIQ 10ML UD PO PRN (20:02)
[2022-11-27] MEDS: ROSUVASTATIN 10 MG TAB (CRESTOR) PO SCH (20:02)
[2022-11-28 06:03] VITALS: BP 126/61
[2022-11-28 07:00] LABS: HEMATOCRIT 39.6 % (42.0-52.0); HEMOGLOBIN 12.2 g/dl (13.5-17.5); MEAN CORPUSCULAR HEMOGLOBIN 30.3 pg (27.0-33.0); MEAN CORPUSCULAR HGB CONC 30.8 g/dl (32.0-36.5); MEAN CORPUSCULAR VOLUME 98.5 fl (80.0-96.0); PLATELET COUNT, AUTOMATED 172 10^3/uL (150-450); RED BLOOD COUNT 4.02 10^6/uL (4.30-6.10); WHITE BLOOD COUNT 6.7 10^3/uL (4.0-10.0)
[2022-11-28 07:34] LABS: CALCIUM LEVEL 8.5 MG/DL (8.3-10.6); CREATININE FOR GFR 1.4 MG/DL (0.70-1.30); GLOMERULAR FILTRATION RATE 52.6 (>42)
[2022-11-28] MEDS: HEPARIN SOD (PORCINE) 5000UNITS/ML 1ML VIAL/SYRINGE SC SCH ×2 (07:42→19:58)
[2022-11-28] MEDS: THEOPHYLLINE (THEO-24) 100MG SR **CAPSULE PO SCH (07:43)
[2022-11-28] MEDS: METOPROLOL SUCC *XL* 25MG TAB (TopROL *XL*) PO SCH (07:43)
[2022-11-28] MEDS: ASPIRIN 81MG ENTERIC TABLET PO SCH (07:43)
[2022-11-28] MEDS: PRIMIDONE 50MG TAB PO SCH ×3 (07:44→19:57)
[2022-11-28] MEDS: buPROPion **SR TABLET** (ZYBAN) 150MG PO SCH ×2 (07:44→19:57)
[2022-11-28] MEDS: PANTOPRAZOLE 40MG TAB (PROTONIX) PO SCH (07:45)
[2022-11-28] MEDS: predniSONE 10MG TAB PO SCH (07:46)
[2022-11-28] MEDS: guaiFENesin ER 600 MG TAB PO SCH ×2 (07:47→19:56)
[2022-11-28] MEDS: NORCO, ANEXSIA 5/325MG TABLET (HYDROcodone/ACETAMINOPHEN) PO PRN ×2 (07:47→19:04)
[2022-11-28] MEDS: IPRATROPIUM 0.5MG/ALBUTEROL 2.5MG INH SOL UD 3ML (DUONEB) NEB SCH ×3 (07:58→20:57)
[2022-11-28] MEDS: BUDESONIDE 0.5 MG/2 ML INHALATION SUSPENSION INH SCH ×2 (07:58→20:56)
[2022-11-28] MEDS: LevoFLOXacin 750 MG TABLET PO SCH (17:24)
[2022-11-28] MEDS: ROSUVASTATIN 10 MG TAB (CRESTOR) PO SCH (19:57)
[2022-11-29 06:00] VITALS: BP 137/64
[2022-11-29] MEDS: IPRATROPIUM 0.5MG/ALBUTEROL 2.5MG INH SOL UD 3ML (DUONEB) NEB SCH ×3 (07:11→20:25)
[2022-11-29] MEDS: BUDESONIDE 0.5 MG/2 ML INHALATION SUSPENSION INH SCH ×2 (07:11→20:25)
[2022-11-29] MEDS: THEOPHYLLINE (THEO-24) 100MG SR **CAPSULE PO SCH (08:57)
[2022-11-29] MEDS: PANTOPRAZOLE 40MG TAB (PROTONIX) PO SCH (08:58)
[2022-11-29] MEDS: HEPARIN SOD (PORCINE) 5000UNITS/ML 1ML VIAL/SYRINGE SC SCH ×2 (08:58→21:03)
[2022-11-29] MEDS: ASPIRIN 81MG ENTERIC TABLET PO SCH (09:00)
[2022-11-29] MEDS: predniSONE 10MG TAB PO SCH (09:00)
[2022-11-29] MEDS: METOPROLOL SUCC *XL* 25MG TAB (TopROL *XL*) PO SCH (09:01)
[2022-11-29] MEDS: buPROPion **SR TABLET** (ZYBAN) 150MG PO SCH ×2 (09:01→21:04)
[2022-11-29] MEDS: PRIMIDONE 50MG TAB PO SCH ×3 (09:01→21:04)
[2022-11-29] MEDS: guaiFENesin ER 600 MG TAB PO SCH (09:02)
[2022-11-29] MEDS: NORCO, ANEXSIA 5/325MG TABLET (HYDROcodone/ACETAMINOPHEN) PO PRN (19:43)
[2022-11-29] MEDS: ROSUVASTATIN 10 MG TAB (CRESTOR) PO SCH (21:04)
[2022-11-30] MEDS: IPRATROPIUM 0.5MG/ALBUTEROL 2.5MG INH SOL UD 3ML (DUONEB) NEB SCH ×2 (07:10→14:48)
[2022-11-30] MEDS: BUDESONIDE 0.5 MG/2 ML INHALATION SUSPENSION INH SCH ×2 (07:10→19:51)
[2022-11-30] MEDS: THEOPHYLLINE (THEO-24) 100MG SR **CAPSULE PO SCH (07:57)
[2022-11-30] MEDS: METOPROLOL SUCC *XL* 25MG TAB (TopROL *XL*) PO SCH (07:59)
[2022-11-30] MEDS: PANTOPRAZOLE 40MG TAB (PROTONIX) PO SCH (08:00)
[2022-11-30] MEDS: ASPIRIN 81MG ENTERIC TABLET PO SCH (08:00)
[2022-11-30] MEDS: buPROPion **SR TABLET** (ZYBAN) 150MG PO SCH ×2 (08:00→20:08)
[2022-11-30] MEDS: predniSONE 10MG TAB PO SCH (08:00)
[2022-11-30] MEDS: PRIMIDONE 50MG TAB PO SCH ×3 (08:01→20:08)
[2022-11-30] MEDS: HEPARIN SOD (PORCINE) 5000UNITS/ML 1ML VIAL/SYRINGE SC SCH ×2 (08:01→20:08)
[2022-11-30] MEDS: LevoFLOXacin 750 MG TABLET PO SCH (17:19)
[2022-11-30] MEDS: ROSUVASTATIN 10 MG TAB (CRESTOR) PO SCH (20:08)
[2022-11-30] MEDS: NORCO, ANEXSIA 5/325MG TABLET (HYDROcodone/ACETAMINOPHEN) PO PRN (20:09)
[2022-12-01 06:00] VITALS: BP 140/86
[2022-12-01] MEDS: THEOPHYLLINE (THEO-24) 100MG SR **CAPSULE PO SCH (08:26)
[2022-12-01] MEDS: predniSONE 10MG TAB PO SCH (08:26)
[2022-12-01] MEDS: HEPARIN SOD (PORCINE) 5000UNITS/ML 1ML VIAL/SYRINGE SC SCH ×2 (08:26→20:23)
[2022-12-01] MEDS: METOPROLOL SUCC *XL* 25MG TAB (TopROL *XL*) PO SCH (08:26)
[2022-12-01] MEDS: ASPIRIN 81MG ENTERIC TABLET PO SCH (08:26)
[2022-12-01] MEDS: buPROPion **SR TABLET** (ZYBAN) 150MG PO SCH ×2 (08:27→20:24)
[2022-12-01] MEDS: NORCO, ANEXSIA 5/325MG TABLET (HYDROcodone/ACETAMINOPHEN) PO PRN ×3 (08:27→22:13)
[2022-12-01] MEDS: PRIMIDONE 50MG TAB PO SCH ×3 (08:27→20:24)
[2022-12-01] MEDS: PANTOPRAZOLE 40MG TAB (PROTONIX) PO SCH (08:28)
[2022-12-01] MEDS: BUDESONIDE 0.5 MG/2 ML INHALATION SUSPENSION INH SCH ×2 (10:53→19:41)
[2022-12-01] MEDS: IPRATROPIUM 0.5MG/ALBUTEROL 2.5MG INH SOL UD 3ML (DUONEB) NEB SCH ×4 (10:53→23:17)
[2022-12-01] MEDS: ACETAMINOPHEN TAB 650MG DOSE (2X325MG) PO PRN (20:24)
[2022-12-01] MEDS: ROSUVASTATIN 10 MG TAB (CRESTOR) PO SCH (20:24)
[2022-12-02] MEDS: ACETAMINOPHEN TAB 650MG DOSE (2X325MG) PO PRN (03:09)
[2022-12-02 06:00] VITALS: BP 143/81
[2022-12-02] MEDS: BUDESONIDE 0.5 MG/2 ML INHALATION SUSPENSION INH SCH ×2 (07:14→21:48)
[2022-12-02] MEDS: IPRATROPIUM 0.5MG/ALBUTEROL 2.5MG INH SOL UD 3ML (DUONEB) NEB SCH (07:14)
[2022-12-02 08:12] VITALS: BP 138/70
[2022-12-02] MEDS: METOPROLOL SUCC *XL* 25MG TAB (TopROL *XL*) PO SCH (09:00)
[2022-12-02] MEDS: buPROPion **SR TABLET** (ZYBAN) 150MG PO SCH ×2 (09:07→19:58)
[2022-12-02] MEDS: PRIMIDONE 50MG TAB PO SCH ×3 (09:07→19:59)
[2022-12-02] MEDS: THEOPHYLLINE (THEO-24) 100MG SR **CAPSULE PO SCH (09:08)
[2022-12-02] MEDS: ASPIRIN 81MG ENTERIC TABLET PO SCH (09:08)
[2022-12-02] MEDS: predniSONE 10MG TAB PO SCH (09:10)
[2022-12-02] MEDS: PANTOPRAZOLE 40MG TAB (PROTONIX) PO SCH (09:12)
[2022-12-02] MEDS: NORCO, ANEXSIA 5/325MG TABLET (HYDROcodone/ACETAMINOPHEN) PO PRN ×2 (09:12→20:05)
[2022-12-02] MEDS: HEPARIN SOD (PORCINE) 5000UNITS/ML 1ML VIAL/SYRINGE SC SCH ×2 (09:14→19:59)
[2022-12-02 10:00] VITALS: BP 144/70
[2022-12-02] MEDS: COMBIVENT RESPIMAT 100-20MCG INHALER 4GM INH SCH ×2 (16:07→21:47)
[2022-12-02] MEDS: ROSUVASTATIN 10 MG TAB (CRESTOR) PO SCH (19:58)
[2022-12-03] MEDS: ACETAMINOPHEN TAB 650MG DOSE (2X325MG) PO PRN (01:57)
[2022-12-03 05:24] VITALS: BP 148/67
[2022-12-03] MEDS: COMBIVENT RESPIMAT 100-20MCG INHALER 4GM INH SCH (08:13)
[2022-12-03] MEDS: BUDESONIDE 0.5 MG/2 ML INHALATION SUSPENSION INH SCH (08:13)
[2022-12-03] MEDS: THEOPHYLLINE (THEO-24) 100MG SR **CAPSULE PO SCH (08:26)
[2022-12-03] MEDS: NORCO, ANEXSIA 5/325MG TABLET (HYDROcodone/ACETAMINOPHEN) PO PRN (08:27)
[2022-12-03] MEDS: buPROPion **SR TABLET** (ZYBAN) 150MG PO SCH (08:27)
[2022-12-03] MEDS: PRIMIDONE 50MG TAB PO SCH (08:28)
[2022-12-03 08:30] VITALS: BP 150/75
[2022-12-03] MEDS: METOPROLOL SUCC *XL* 25MG TAB (TopROL *XL*) PO SCH (08:30)
[2022-12-03] MEDS: PANTOPRAZOLE 40MG TAB (PROTONIX) PO SCH (08:30)
[2022-12-03] MEDS: ASPIRIN 81MG ENTERIC TABLET PO SCH (08:30)
[2022-12-03] MEDS: predniSONE 10MG TAB PO SCH (08:31)
[2022-12-03] MEDS: HEPARIN SOD (PORCINE) 5000UNITS/ML 1ML VIAL/SYRINGE SC SCH (08:32)
[2022-12-03] MEDS ORDERED: PRED10TA2 PO (11:25)
[2022-12-03] MEDS ORDERED: AMLO10TA PO (11:25)
[2022-12-03] MEDS ORDERED: PANT40TA29 PO (11:25)
[2022-12-03] MEDS ORDERED: HYDR-3490 PO (11:25)
[2022-12-03] MEDS ORDERED: METO1TAB7 PO (11:25)
[2022-12-03] MEDS ORDERED: FLOV100A INH (11:25)
[2022-12-03] MEDS ORDERED: IPRA0.00 INH (11:34)
[2022-12-03] MEDS ORDERED: AZIT-12 PO (11:34)
[2022-12-03] MEDS ORDERED: PRED20TA PO (11:34)
== END 2022-12-03 13:45 | disposition home health service (06) | DRG 177 ==
LOC: M ED 17:57 → M ED INP 21:03 → M ICU 22:40 → M MS5PR 11-25 16:05
PROVIDERS: ADMIT Internal Medicine; ATTEND Internal Medicine
DX: J15.1 Pneumonia due to Pseudomonas (principal); J96.21 Acute and chronic respiratory failure with hypoxia; J96.22 Acute and chronic respiratory failure with hypercapnia; J44.1 Chronic obstructive pulmonary disease with (acute) exacerbation; J44.0 Chronic obstructive pulmonary disease with (acute) lower respiratory infection; E87.29 Other acidosis; J20.9 Acute bronchitis, unspecified; F17.210 Nicotine dependence, cigarettes, uncomplicated; R25.1 Tremor, unspecified; Z99.81 Dependence on supplemental oxygen; I12.9 Hypertensive chronic kidney disease with stage 1 through stage 4 chronic kidney disease, or unspecified chronic kidney disease; N18.31 Chronic kidney disease, stage 3a; E78.5 Hyperlipidemia, unspecified; F41.9 Anxiety disorder, unspecified; F32.A Depression, unspecified; Z92.3 Personal history of irradiation; Z85.118 Personal history of other malignant neoplasm of bronchus and lung; Z88.2 Allergy status to sulfonamides; Z79.899 Other long term (current) drug therapy; Z79.82 Long term (current) use of aspirin

== ENCOUNTER → 2023-01-03 | Outpatient (CLI) | payer MEDICARE, OTHER ==
[~2023-01-03] MED LIST changes: +ACET-907 PO; +AZIT-12 PO; +BROV15NE INH; +CLEO300C2 PO; +FLOV100A INH; +HYDR-3490 PO; +HYDR-4517 PO; +IPRA0.00 INH; +PRED20TA PO
[2023-01-03 10:25] LABS: ABG BASE EXCESS 1.8 (-2.0-2.0); ABG HCO3 27.6 MMOL/L (22.0-26.0); ABG O2 SATURATION 92.7 % (95.0-99.0); ABG PARTIAL PRESSURE CO2 47.4 mmHg (35.0-45.0); ABG TOTAL CO2 29.1 MMOL/L (23.0-31.0); ABG pH (ARTERIAL) 7.383 UNITS (7.350-7.450)
== END ==
LOC: M LAB 09:12
PROVIDERS: ATTEND Internal Medicine Pulmonary Disease
DX: J44.0 Chronic obstructive pulmonary disease with (acute) lower respiratory infection (principal)

== ENCOUNTER 2023-01-06 18:27 | Emergency (ER) | payer MEDICARE, OTHER ==
[~2023-01-06] VITALS: Ht 172.7 cm; Wt 79.0 kg
[~2023-01-06 18:27] MED LIST changes: -CLEO300C2 PO
[2023-01-06] MEDS ORDERED: NORCO, ANEXSIA 5/325MG TABLET (HYDROcodone/ACETAMINOPHEN) PO ONE (21:10)
[2023-01-06 21:28] LABS: BASO % 0.3 % (0.0-1.0); EOS # 0.2 10^3/uL (0.0-0.5); EOS % 1.3 % (0.0-3.0); HEMATOCRIT 41.5 % (42.0-52.0); HEMOGLOBIN 14.1 g/dl (13.5-17.5); LYMPH % 8.5 % (24.0-44.0); MEAN CORPUSCULAR VOLUME 94.1 fl (80.0-96.0); MONO # 1.1 10^3/uL (0.0-0.8); MONO % 9.5 % (2.0-8.0); NEUTROPHILS # 9.2 10^3/uL (1.5-8.5); NEUTROPHILS % 79.9 % (36.0-66.0); PLATELET COUNT, AUTOMATED 148 10^3/uL (150-450); RED BLOOD COUNT 4.41 10^6/uL (4.30-6.10); WHITE BLOOD COUNT 11.5 10^3/uL (4.0-10.0)
[2023-01-06 22:03] LABS: CALCIUM LEVEL 8.6 MG/DL (8.3-10.6); CREATININE FOR GFR 1.7 MG/DL (0.70-1.30); POTASSIUM SERUM 4.3 MMOL/L (3.5-5.1)
[2023-01-06 22:05] LABS: ERYTHROCYTE SEDIMENTATION RATE 45 mm/hr (0-20)
[2023-01-06] MEDS ORDERED: NORCO 5/325MG TABLET (HOME DOSE PACK) PO ONE (23:35)
[2023-01-06] MEDS ORDERED: CLINDAMYCIN 150MG CAPSULE PO ONE (23:35)
[2023-01-06] MEDS ORDERED: CLEO300C2 PO (23:35)
[2023-01-06 23:46] VITALS: BP 172/91
== END 2023-01-06 23:54 | disposition home or self-care (01) ==
LOC: M ED 18:27
DX: L03.115 Cellulitis of right lower limb (principal); N18.30 Chronic kidney disease, stage 3 unspecified; J44.9 Chronic obstructive pulmonary disease, unspecified; I10 Essential (primary) hypertension; F17.200 Nicotine dependence, unspecified, uncomplicated; Z88.2 Allergy status to sulfonamides; Z79.52 Long term (current) use of systemic steroids; Z79.82 Long term (current) use of aspirin; Z79.899 Other long term (current) drug therapy

== ENCOUNTER 2023-01-09 10:42 | Emergency (ER) | payer MEDICARE, OTHER ==
[~2023-01-09] VITALS: Ht 172.7 cm; Wt 76.8 kg
[~2023-01-09 10:42] MED LIST changes: +CLEO300C2 PO
[2023-01-09] MEDS ORDERED: ONDANSETRON 4MG 2ML VIAL IV ONE (12:10)
[2023-01-09] MEDS ORDERED: MORPHINE 4 MG/ML 1ML VIAL IV ONE (12:10)
[2023-01-09] MEDS ORDERED: NS 1,000 ML IV SCH (12:10)
[2023-01-09 12:20] LABS: BASO % 0.3 % (0.0-1.0); EOS # 0.2 10^3/uL (0.0-0.5); EOS % 3.3 % (0.0-3.0); HEMATOCRIT 41.5 % (42.0-52.0); HEMOGLOBIN 13.8 g/dl (13.5-17.5); LYMPH # 0.8 10^3/uL (1.5-5.0); LYMPH % 11.4 % (24.0-44.0); MEAN CORPUSCULAR HEMOGLOBIN 31.2 pg (27.0-33.0); MEAN CORPUSCULAR HGB CONC 33.3 g/dl (32.0-36.5); MEAN CORPUSCULAR VOLUME 93.7 fl (80.0-96.0); MONO # 0.8 10^3/uL (0.0-0.8); MONO % 11.5 % (2.0-8.0); NEUTROPHILS # 5.3 10^3/uL (1.5-8.5); NEUTROPHILS % 73.2 % (36.0-66.0); PLATELET COUNT, AUTOMATED 181 10^3/uL (150-450); RED BLOOD COUNT 4.43 10^6/uL (4.30-6.10); WHITE BLOOD COUNT 7.3 10^3/uL (4.0-10.0)
[2023-01-09 13:35] LABS: ERYTHROCYTE SEDIMENTATION RATE 45 mm/hr (0-20)
[2023-01-09] MEDS ORDERED: MORPHINE 2 MG/ML 1ML VIAL IV ONE (13:50)
[2023-01-09] MEDS ORDERED: TRAM50TA2 PO (14:14)
[2023-01-09 14:22] VITALS: BP 168/73
== END 2023-01-09 14:31 | disposition home or self-care (01) ==
LOC: M ED 10:42
DX: L03.115 Cellulitis of right lower limb (principal); J44.9 Chronic obstructive pulmonary disease, unspecified; I10 Essential (primary) hypertension; F17.200 Nicotine dependence, unspecified, uncomplicated; Z88.2 Allergy status to sulfonamides; Z79.1 Long term (current) use of non-steroidal anti-inflammatories (NSAID); Z79.52 Long term (current) use of systemic steroids; Z79.899 Other long term (current) drug therapy
CPT/HCPCS: 76882; 80047; 85025; 85652; 86140; 87070; 87077; 87186; 93971; 96361; 96374; 96375; 99284; J2405

== ENCOUNTER → 2023-01-19 | Outpatient (CLI) | payer OTHER | LOC: M SOG 08:10 | PROVIDERS: ATTEND Orthopaedic Surgery | DX: M85.812 Other specified disorders of bone density and structure, left shoulder (principal); M19.012 Primary osteoarthritis, left shoulder ==

== ENCOUNTER 2023-04-10 12:35 | Inpatient (IN) | payer MEDICARE, OTHER ==
[~2023-04-10] VITALS: Ht 172.7 cm; Wt 75.5 kg
[~2023-04-10 12:35] MED LIST changes: +DICL100G10 TOP; -DICL1GEL3 TOP; -ROSU20TA5 PO; +ROSU20TA61 PO
[2023-04-10] MEDS ORDERED: NORCO, ANEXSIA 5/325MG TABLET (HYDROcodone/ACETAMINOPHEN) PO STA (19:26)
[2023-04-10] MEDS ORDERED: LIDOCAINE W/EPINEPHRINE 1% 20ML VIAL SC ONE (19:40)
[2023-04-10 20:27] LABS: BASO % 0.5 % (0.0-1.0); EOS # 0.2 10^3/uL (0.0-0.5); EOS % 2.2 % (0.0-3.0); HEMATOCRIT 46.1 % (42.0-52.0); HEMOGLOBIN 14.9 g/dl (13.5-17.5); LYMPH # 1.2 10^3/uL (1.5-5.0); LYMPH % 14.9 % (24.0-44.0); MEAN CORPUSCULAR HGB CONC 32.3 g/dl (32.0-36.5); MEAN CORPUSCULAR VOLUME 95.8 fl (80.0-96.0); MONO # 0.7 10^3/uL (0.0-0.8); NEUTROPHILS # 5.8 10^3/uL (1.5-8.5); PLATELET COUNT, AUTOMATED 179 10^3/uL (150-450); RED BLOOD COUNT 4.81 10^6/uL (4.30-6.10); WHITE BLOOD COUNT 7.9 10^3/uL (4.0-10.0)
[2023-04-10 20:40] LABS: ERYTHROCYTE SEDIMENTATION RATE 27 mm/hr (0-20)
[2023-04-10 20:42] LABS: CALCIUM LEVEL 9.1 MG/DL (8.3-10.6); CREATININE FOR GFR 1.65 MG/DL (0.70-1.30); GLOMERULAR FILTRATION RATE 43.5 (>42); POTASSIUM SERUM 4.5 MMOL/L (3.5-5.1)
[2023-04-10] MEDS ORDERED: VANCOMYCIN HCL 1,500 MG in IV FLUID PLACE HOLDER 1 EA IV ONE (21:00)
[2023-04-10] MEDS ORDERED: VANCOMYCIN HCL 750 MG, VIAL MATE ADAPTER 1 EACH in D5W 250 ML IV ONE ×6 (21:00)
[2023-04-10] MEDS ORDERED: METO1TAB7 PO (21:41)
[2023-04-10] MEDS ORDERED: HYDR-3713 PO (21:41)
[2023-04-10] MEDS ORDERED: HYDR-3490 PO (21:41)
[2023-04-10] MEDS ORDERED: AMLO1TAB24 PO (21:41)
[2023-04-10] MEDS ORDERED: HOME MED LIST COMPLETE! XX SCH (21:45)
[2023-04-10 21:58] LABS: RSV AMPLIFICATION NEGATIVE (NEGATIVE)
[2023-04-10 22:01] LABS: C REACTIVE PROTEIN QUANTITATIV 2.9 MG/DL (<1.0)
[2023-04-10] MEDS ORDERED: methylPREDNISolone 125MG 2ML VIAL IV STA (23:49)
[2023-04-10] MEDS ORDERED: IPRATROPIUM 0.5MG/ALBUTEROL 2.5MG INH SOL UD 3ML (DUONEB) NEB ONE (23:50)
[2023-04-10] MEDS ORDERED: NS 1,000 ML IV SCH (23:50)
[2023-04-10] MEDS ORDERED: ALBUTEROL SULFATE 2.5MG/0.5ML INH NEB SOLN NEB PRN (23:50)
[2023-04-11] MEDS: IPRATROPIUM 0.5MG/ALBUTEROL 2.5MG INH SOL UD 3ML (DUONEB) NEB SCH ×4 (00:53→19:38)
[2023-04-11] MEDS ORDERED: CLINDAMYCIN 150MG CAPSULE PO SCH (06:00)
[2023-04-11 06:25] LABS: CALCIUM LEVEL 8.5 MG/DL (8.3-10.6); CREATININE FOR GFR 1.49 MG/DL (0.70-1.30); GLOMERULAR FILTRATION RATE 48.9 (>42); POTASSIUM SERUM 4.8 MMOL/L (3.5-5.1)
[2023-04-11] MEDS: FORMOTEROL FUMARATE 20 MCG/2 ML INHALATION SOLUTION (PERFOROMIST) INH SCH ×2 (08:00→19:38)
[2023-04-11] MEDS: ASPIRIN 81MG ENTERIC TABLET PO SCH (08:47)
[2023-04-11] MEDS: LACTOBACILLUS ACIDOPHILUS CAP (BACID) PO SCH ×2 (08:47→16:52)
[2023-04-11] MEDS: amLODIPine 5 MG TAB PO SCH (08:47)
[2023-04-11] MEDS: methylPREDNISolone 40MG 1ML VIAL IV SCH ×3 (08:48→23:37)
[2023-04-11] MEDS: METOPROLOL SUCC *XL* 25MG TAB (TopROL *XL*) PO SCH (08:48)
[2023-04-11] MEDS: HEPARIN SOD (PORCINE) 5000UNITS/ML 1ML VIAL/SYRINGE SC SCH ×2 (08:49→20:00)
[2023-04-11] MEDS: NORCO, ANEXSIA 5/325MG TABLET (HYDROcodone/ACETAMINOPHEN) PO PRN ×2 (09:00→19:59)
[2023-04-11 12:38] VITALS: BP 134/78; TEMP 97.7; O2SAT 93
[2023-04-11] MEDS ORDERED: VANCOMYCIN HCL 1,000 MG, VIAL MATE ADAPTER 1 EACH in D5W 250 ML IV SCH (14:00)
[2023-04-11] MEDS: PRIMIDONE 50MG TAB PO SCH ×2 (14:47→19:59)
[2023-04-11] MEDS: buPROPion **SR TABLET** (ZYBAN) 150MG PO SCH ×2 (14:48→20:00)
[2023-04-11] MEDS: THEOPHYLLINE (THEO-24) 100MG SR **CAPSULE PO SCH (14:48)
[2023-04-11] MEDS ORDERED: ROSUVASTATIN 10 MG TAB (CRESTOR) PO SCH (21:00)
[2023-04-11] MEDS ORDERED: MONTELUKAST 10 MG TAB PO SCH (21:00)
[2023-04-11 21:21] VITALS: BP 143/72; TEMP 97.5; O2SAT 90
[2023-04-12] MEDS: IPRATROPIUM 0.5MG/ALBUTEROL 2.5MG INH SOL UD 3ML (DUONEB) NEB SCH ×2 (00:23→07:42)
[2023-04-12 06:00] VITALS: BP 141/74; TEMP 97.7; O2SAT 96
[2023-04-12] MEDS: NORCO, ANEXSIA 5/325MG TABLET (HYDROcodone/ACETAMINOPHEN) PO PRN (06:39)
[2023-04-12 07:08] LABS: HEMATOCRIT 38.7 % (42.0-52.0); MEAN CORPUSCULAR HEMOGLOBIN 31.2 pg (27.0-33.0); MEAN CORPUSCULAR HGB CONC 32.3 g/dl (32.0-36.5); MEAN CORPUSCULAR VOLUME 96.5 fl (80.0-96.0); PLATELET COUNT, AUTOMATED 156 10^3/uL (150-450); RED BLOOD COUNT 4.01 10^6/uL (4.30-6.10); WHITE BLOOD COUNT 7.1 10^3/uL (4.0-10.0)
[2023-04-12] MEDS ORDERED: LEVO1TAB39 PO ×2 (07:10→08:00)
[2023-04-12] MEDS ORDERED: RISATAB3 PO (07:10)
[2023-04-12] MEDS ORDERED: PRED20TA PO (07:10)
[2023-04-12 07:15] LABS: HEMOGLOBIN 12.5 g/dl (13.5-17.5)
[2023-04-12 07:39] LABS: ALKALINE PHOSPHATASE 103 U/L (46-116); ALT/SGPT 11 U/L (7.0-40); AST/SGOT < 8 U/L (<34); BILIRUBIN,TOTAL < 0.2 MG/DL (0.3-1.2); BLOOD UREA NITROGEN 41 MG/DL (9-23); CALCIUM LEVEL 8.4 MG/DL (8.3-10.6); CARBON DIOXIDE LEVEL 35 MMOL/L (20-31); CHLORIDE LEVEL 103 MMOL/L (98-107); CREATININE FOR GFR 1.62 MG/DL (0.70-1.30); GLOMERULAR FILTRATION RATE 44.4 (>42); GLUCOSE, FASTING 132 MG/DL (74-106); POTASSIUM SERUM 4.5 MMOL/L (3.5-5.1); SODIUM LEVEL 143 MMOL/L (136-145); TOTAL PROTEIN 5.8 G/DL (5.7-8.2)
[2023-04-12] MEDS: FORMOTEROL FUMARATE 20 MCG/2 ML INHALATION SOLUTION (PERFOROMIST) INH SCH (07:42)
[2023-04-12] MEDS ORDERED: TRAM50TA2 PO (08:14)
[2023-04-12] MEDS: ASPIRIN 81MG ENTERIC TABLET PO SCH (08:55)
[2023-04-12] MEDS: methylPREDNISolone 40MG 1ML VIAL IV SCH (08:55)
[2023-04-12] MEDS: LACTOBACILLUS ACIDOPHILUS CAP (BACID) PO SCH (08:55)
[2023-04-12] MEDS: PRIMIDONE 50MG TAB PO SCH (08:56)
[2023-04-12] MEDS: amLODIPine 5 MG TAB PO SCH (08:59)
[2023-04-12] MEDS: THEOPHYLLINE (THEO-24) 100MG SR **CAPSULE PO SCH (09:00)
[2023-04-12 09:01] VITALS: BP 137/71
[2023-04-12] MEDS: HEPARIN SOD (PORCINE) 5000UNITS/ML 1ML VIAL/SYRINGE SC SCH (09:01)
[2023-04-12] MEDS: METOPROLOL SUCC *XL* 25MG TAB (TopROL *XL*) PO SCH (09:01)
[2023-04-12] MEDS: buPROPion **SR TABLET** (ZYBAN) 150MG PO SCH (09:01)
== END 2023-04-12 10:30 | disposition home or self-care (01) | DRG 191 ==
LOC: M ED 12:35 → M ED INP 23:49 → M MS5PR 04-11 12:25
PROVIDERS: ADMIT Internal Medicine; ATTEND Internal Medicine
DX: J44.1 Chronic obstructive pulmonary disease with (acute) exacerbation (principal); J96.11 Chronic respiratory failure with hypoxia; L03.312 Cellulitis of back [any part except buttock and flank]; F17.210 Nicotine dependence, cigarettes, uncomplicated; I12.9 Hypertensive chronic kidney disease with stage 1 through stage 4 chronic kidney disease, or unspecified chronic kidney disease; R25.1 Tremor, unspecified; L72.3 Sebaceous cyst; L08.9 Local infection of the skin and subcutaneous tissue, unspecified; N18.30 Chronic kidney disease, stage 3 unspecified; Z99.81 Dependence on supplemental oxygen; Z79.82 Long term (current) use of aspirin; Z79.899 Other long term (current) drug therapy; Z88.2 Allergy status to sulfonamides; Z20.822 Contact with and (suspected) exposure to COVID-19; Z66 Do not resuscitate

== ENCOUNTER 2023-07-24 08:55 | Emergency (ER) | payer MEDICARE, OTHER ==
[~2023-07-24] VITALS: Ht 172.7 cm; Wt 75.9 kg
[~2023-07-24 08:55] MED LIST changes: +AMLO1TAB24 PO; -CEFD300C41 PO; +CEFD300C42 PO; +HYDR-3713 PO; +LEVO1TAB39 PO; +RISATAB3 PO
[2023-07-24 10:30] LABS: BASO % 0.3 % (0.0-1.0); EOS # 0.3 10^3/uL (0.0-0.5); HEMATOCRIT 41.9 % (42.0-52.0); HEMOGLOBIN 13.7 g/dl (13.5-17.5); MEAN CORPUSCULAR HEMOGLOBIN 30.9 pg (27.0-33.0); MEAN CORPUSCULAR HGB CONC 32.7 g/dl (32.0-36.5); MEAN CORPUSCULAR VOLUME 94.6 fl (80.0-96.0); MONO # 0.9 10^3/uL (0.0-0.8); MONO % 9.8 % (2.0-8.0); NEUTROPHILS # 6.6 10^3/uL (1.5-8.5); NEUTROPHILS % 75.3 % (36.0-66.0); PLATELET COUNT, AUTOMATED 194 10^3/uL (150-450); RED BLOOD COUNT 4.43 10^6/uL (4.30-6.10); WHITE BLOOD COUNT 8.8 10^3/uL (4.0-10.0)
[2023-07-24] MEDS ORDERED: MORPHINE 2 MG/ML 1ML VIAL IV ONE ×2 (10:30→11:50)
[2023-07-24 10:58] LABS: CALCIUM LEVEL 9.1 MG/DL (8.3-10.6); CREATININE FOR GFR 1.61 MG/DL (0.70-1.30); GLOMERULAR FILTRATION RATE 44.8 (>42); POTASSIUM SERUM 4.3 MMOL/L (3.5-5.1)
[2023-07-24] MEDS ORDERED: DALBAVANCIN 1,500 MG in D5W 250 ML IV ONE (11:15)
[2023-07-24] MEDS ORDERED: NORCO, ANEXSIA 5/325MG TABLET (HYDROcodone/ACETAMINOPHEN) PO ONE (13:15)
[2023-07-24 15:16] VITALS: BP 162/102; TEMP 98.2; O2SAT 92
== END 2023-07-24 15:35 | disposition home or self-care (01) ==
LOC: M ED 08:55
DX: L02.415 Cutaneous abscess of right lower limb (principal); L03.115 Cellulitis of right lower limb; Z88.2 Allergy status to sulfonamides; Z79.52 Long term (current) use of systemic steroids; Z79.82 Long term (current) use of aspirin; Z79.891 Long term (current) use of opiate analgesic; Z79.899 Other long term (current) drug therapy
CPT/HCPCS: 80048; 85025; 87040; 87070; 87077; 87186; 87205; 93971; 99284; J0875

== ENCOUNTER 2023-07-26 11:40 | Emergency (ER) | payer MEDICARE, OTHER ==
[~2023-07-26] VITALS: Ht 172.7 cm; Wt 78.1 kg
[2023-07-26 12:20] LABS: BASO % 0.2 % (0.0-1.0); EOS # 0.2 10^3/uL (0.0-0.5); EOS % 2.8 % (0.0-3.0); HEMATOCRIT 41.6 % (42.0-52.0); HEMOGLOBIN 13.6 g/dl (13.5-17.5); LYMPH # 0.9 10^3/uL (1.5-5.0); LYMPH % 10.5 % (24.0-44.0); MEAN CORPUSCULAR HEMOGLOBIN 31.2 pg (27.0-33.0); MEAN CORPUSCULAR HGB CONC 32.7 g/dl (32.0-36.5); MEAN CORPUSCULAR VOLUME 95.4 fl (80.0-96.0); MONO # 0.9 10^3/uL (0.0-0.8); MONO % 10.7 % (2.0-8.0); NEUTROPHILS # 6.3 10^3/uL (1.5-8.5); NEUTROPHILS % 75.4 % (36.0-66.0); PLATELET COUNT, AUTOMATED 190 10^3/uL (150-450); RED BLOOD COUNT 4.36 10^6/uL (4.30-6.10); WHITE BLOOD COUNT 8.3 10^3/uL (4.0-10.0)
[2023-07-26 12:42] LABS: CALCIUM LEVEL 9.5 MG/DL (8.3-10.6); CREATININE FOR GFR 1.55 MG/DL (0.70-1.30); GLOMERULAR FILTRATION RATE 46.8 (>42); POTASSIUM SERUM 4.9 MMOL/L (3.5-5.1)
[2023-07-26] MEDS ORDERED: LIDOCAINE W/EPINEPHRINE 1% 20ML VIAL SC ONE (12:55)
[2023-07-26] MEDS ORDERED: MORPHINE 2 MG/ML 1ML VIAL IM ONE (13:30)
[2023-07-26 13:47] VITALS: BP 159/98; TEMP 98.3; O2SAT 92
== END 2023-07-26 13:48 | disposition home or self-care (01) ==
LOC: M ED 11:40
DX: L02.415 Cutaneous abscess of right lower limb (principal); C34.90 Malignant neoplasm of unspecified part of unspecified bronchus or lung; J44.9 Chronic obstructive pulmonary disease, unspecified; I10 Essential (primary) hypertension; Z88.2 Allergy status to sulfonamides; Z87.891 Personal history of nicotine dependence; Z79.52 Long term (current) use of systemic steroids; Z79.899 Other long term (current) drug therapy; Z79.891 Long term (current) use of opiate analgesic; Z79.82 Long term (current) use of aspirin

== ENCOUNTER 2023-11-04 13:17 | Emergency (ER) | payer OTHER, MEDICARE ==
[~2023-11-04] VITALS: Ht 172.7 cm; Wt 83.1 kg
[~2023-11-04 13:17] MED LIST changes: -ASPI-161 PO; +ASPI-615 PO; +CEFD1CAP9 PO; -CEFD300C42 PO
[2023-11-04] MEDS: NS 500 ML IV ONE (16:59)
[2023-11-04 17:16] LABS: BASO % 0.4 % (0.0-1.0); EOS # 0.2 10^3/uL (0.0-0.5); EOS % 2.6 % (0.0-3.0); HEMATOCRIT 40.5 % (42.0-52.0); HEMOGLOBIN 13.2 g/dl (13.5-17.5); LYMPH % 13.5 % (24.0-44.0); MEAN CORPUSCULAR HEMOGLOBIN 31.7 pg (27.0-33.0); MEAN CORPUSCULAR HGB CONC 32.6 g/dl (32.0-36.5); MEAN CORPUSCULAR VOLUME 97.1 fl (80.0-96.0); MONO # 0.7 10^3/uL (0.0-0.8); MONO % 9.1 % (2.0-8.0); NEUTROPHILS # 5.6 10^3/uL (1.5-8.5); NEUTROPHILS % 73.5 % (36.0-66.0); PLATELET COUNT, AUTOMATED 166 10^3/uL (150-450); RED BLOOD COUNT 4.17 10^6/uL (4.30-6.10); WHITE BLOOD COUNT 7.6 10^3/uL (4.0-10.0)
[2023-11-04 17:45] LABS: CREATININE FOR GFR 1.5 MG/DL (0.70-1.30); GLOMERULAR FILTRATION RATE 48.4 (>42); POTASSIUM SERUM 4.7 MMOL/L (3.5-5.1)
[2023-11-04] MEDS: DOXYCYCLINE HYCLATE 100 MG in D5W MINI-BAG PLUS 100 ML IV ONE (18:42)
[2023-11-04] MEDS: IPRATROPIUM 0.5MG/ALBUTEROL 2.5MG INH SOL UD 3ML (DUONEB) NEB ONE (19:21)
[2023-11-04] MEDS ORDERED: SYMB16INH INH (19:30)
[2023-11-04] MEDS ORDERED: DOXY-443 PO (19:30)
[2023-11-04 20:01] VITALS: BP 156/85; TEMP 97.1; O2SAT 97
[2023-11-04] MEDS ORDERED: VENTAER INH (20:18)
== END 2023-11-04 20:46 | disposition home or self-care (01) ==
LOC: M ED 13:17
DX: L03.115 Cellulitis of right lower limb (principal); J44.9 Chronic obstructive pulmonary disease, unspecified; J96.10 Chronic respiratory failure, unspecified whether with hypoxia or hypercapnia; N18.30 Chronic kidney disease, stage 3 unspecified; I10 Essential (primary) hypertension; Z87.891 Personal history of nicotine dependence; Z88.2 Allergy status to sulfonamides; Z79.02 Long term (current) use of antithrombotics/antiplatelets; Z79.52 Long term (current) use of systemic steroids; Z79.82 Long term (current) use of aspirin; Z79.899 Other long term (current) drug therapy

== ENCOUNTER 2023-12-02 09:02 | Inpatient (IN) | payer MEDICARE, OTHER ==
[~2023-12-02] VITALS: Ht 172.7 cm; Wt 87.4 kg
[~2023-12-02 09:02] MED LIST changes: +DOXY-443 PO
[2023-12-02] MEDS: IPRATROPIUM 0.5MG/ALBUTEROL 2.5MG INH SOL UD 3ML (DUONEB) NEB PRN ×2 (09:54→22:06)
[2023-12-02 09:57] LABS: BASO % 0.2 % (0.0-1.0); EOS % 0.1 % (0.0-3.0); HEMATOCRIT 42.1 % (42.0-52.0); HEMOGLOBIN 13.6 g/dl (13.5-17.5); LYMPH # 0.3 10^3/uL (1.5-5.0); LYMPH % 1.5 % (24.0-44.0); MEAN CORPUSCULAR HEMOGLOBIN 31.7 pg (27.0-33.0); MEAN CORPUSCULAR HGB CONC 32.3 g/dl (32.0-36.5); MEAN CORPUSCULAR VOLUME 98.1 fl (80.0-96.0); MONO # 1.4 10^3/uL (0.0-0.8); MONO % 7.8 % (2.0-8.0); NEUTROPHILS # 16.6 10^3/uL (1.5-8.5); NEUTROPHILS % 89.6 % (36.0-66.0); PLATELET COUNT, AUTOMATED 163 10^3/uL (150-450); RED BLOOD COUNT 4.29 10^6/uL (4.30-6.10); WHITE BLOOD COUNT 18.5 10^3/uL (4.0-10.0)
[2023-12-02 10:19] LABS: CK-MB VALUE MASS 6.2 NG/ML (<3.6)
[2023-12-02 10:20] LABS: MB/CK RELATIVE INDEX 1.43 (< OR =4)
[2023-12-02 10:21] LABS: ALBUMIN 3.6 G/DL (3.2-5.2); BILIRUBIN,DIRECT 0.2 MG/DL (<0.4); BILIRUBIN,TOTAL 0.3 MG/DL (0.3-1.2); CALCIUM LEVEL 8.5 MG/DL (8.3-10.6); CREATININE FOR GFR 1.75 MG/DL (0.70-1.30); GLOMERULAR FILTRATION RATE 40.5 (>42); POTASSIUM SERUM 4.4 MMOL/L (3.5-5.1); TOTAL PROTEIN 6.8 G/DL (5.7-8.2)
[2023-12-02 10:35] LABS: ABG BASE EXCESS 3.1 (-2.0-2.0); ABG HCO3 30.2 MMOL/L (22.0-26.0); ABG O2 SATURATION 95.4 % (95.0-99.0); ABG PARTIAL PRESSURE CO2 56.8 mmHg (35.0-45.0); ABG PARTIAL PRESSURE O2 81.7 mmHg (75.0-100.0); ABG STANDARD HCO3 27.2 MMOL/L. (22.0-26.0); ABG pH (ARTERIAL) 7.344 UNITS (7.350-7.450)
[2023-12-02] MEDS ORDERED: THEO300T33 PO (12:16)
[2023-12-02] MEDS ORDERED: B-12100020 PO (12:16)
[2023-12-02] MEDS ORDERED: AMLO1TAB25 PO (12:16)
[2023-12-02] MEDS ORDERED: BUPR-69 PO (12:16)
[2023-12-02] MEDS ORDERED: HYDR-4429 PO (12:21)
[2023-12-02] MEDS ORDERED: HOME MED LIST COMPLETE! XX SCH (12:25)
[2023-12-02] MEDS: NORCO, ANEXSIA 5/325MG TABLET (HYDROcodone/ACETAMINOPHEN) PO ONE (13:08)
[2023-12-02] MEDS ORDERED: ISOVUE-370 76% 100ML VIAL As Ordered ONE (14:22)
[2023-12-02] MEDS ORDERED: CEFEPIME HCL 2 GM in D5W MINI-BAG PLUS 50 ML IV SCH (16:15)
[2023-12-02] MEDS ORDERED: MAALOX 30 ML SUSP *UDC PO PRN (16:15)
[2023-12-02] MEDS ORDERED: MOM 30ML SUSPENSION UDC PO PRN (16:15)
[2023-12-02 16:48] LABS: PROCALCITONIN 12.96 ng/ml
[2023-12-02 16:51] LABS: C REACTIVE PROTEIN QUANTITATIV 6.7 MG/DL (<1.0)
[2023-12-02] MEDS: DOXYCYCLINE HYCLATE 100 MG in D5W MINI-BAG PLUS 100 ML IV SCH (16:52)
[2023-12-02] MEDS: methylPREDNISolone 125MG 2ML VIAL IV SCH (16:52)
[2023-12-02] MEDS: NS 1,000 ML IV SCH (16:52)
[2023-12-02] MEDS: CEFEPIME HCL 2 GM in D5W MINI-BAG PLUS 50 ML IV SCH (18:23)
[2023-12-02] MEDS: IPRATROPIUM 0.5MG/ALBUTEROL 2.5MG INH SOL UD 3ML (DUONEB) NEB SCH (20:46)
[2023-12-02 21:43] VITALS: BP 138/82; TEMP 100.8; O2SAT 95
[2023-12-02 22:05] VITALS: O2SAT 94
[2023-12-02] MEDS: SYMBICORT 160/4.5MCG INHALER 6GM INH SCH (22:06)
[2023-12-02] MEDS: FORMOTEROL FUMARATE 20 MCG/2 ML INHALATION SOLUTION (PERFOROMIST) INH SCH (22:06)
[2023-12-02] MEDS: DOCUSATE SODIUM 100MG CAPSULE PO SCH (22:29)
[2023-12-02] MEDS: ROSUVASTATIN 10 MG TAB (CRESTOR) PO SCH (22:29)
[2023-12-02] MEDS: guaiFENesin ER TABLET 600 MG TAB PO SCH (22:30)
[2023-12-02] MEDS: METOPROLOL SUCC *XL* 25MG TAB (TopROL *XL*) PO ONE (22:30)
[2023-12-02] MEDS: MONTELUKAST 10 MG TAB PO SCH (22:30)
[2023-12-02] MEDS: HEPARIN SOD (PORCINE) 5000UNITS/ML 1ML VIAL/SYRINGE SC SCH (22:31)
[2023-12-02] MEDS: PRIMIDONE 50MG TAB PO SCH (22:42)
[2023-12-02] MEDS: buPROPion 100 MG TAB PO SCH (22:42)
[2023-12-02] MEDS ORDERED: PILL CUTTER 1 EACH XX ONE (22:45)
[2023-12-02] MEDS: ACETAMINOPHEN TAB 650MG DOSE (2X325MG) PO PRN (22:54)
[2023-12-03] VITALS: BP 101/51; TEMP 100.5; O2SAT 97
[2023-12-03] MEDS: LEVALBUTEROL 1.25MG 0.5ML CONCENTRATE NEB INH SCH (02:40)
[2023-12-03] MEDS: IPRATROPIUM 0.02% SOLN 0.5MG 2.5ML NEB INH SCH (02:40)
[2023-12-03 04:00] VITALS: BP 124/58; TEMP 98.1; O2SAT 96
[2023-12-03 07:01] LABS: HEMATOCRIT 36.1 % (42.0-52.0); HEMOGLOBIN 11.5 g/dl (13.5-17.5); MEAN CORPUSCULAR HEMOGLOBIN 31.3 pg (27.0-33.0); MEAN CORPUSCULAR HGB CONC 31.9 g/dl (32.0-36.5); MEAN CORPUSCULAR VOLUME 98.4 fl (80.0-96.0); PLATELET COUNT, AUTOMATED 134 10^3/uL (150-450); RED BLOOD COUNT 3.67 10^6/uL (4.30-6.10); WHITE BLOOD COUNT 15.4 10^3/uL (4.0-10.0)
[2023-12-03 07:12] LABS: C REACTIVE PROTEIN QUANTITATIV 15.7 MG/DL (<1.0)
[2023-12-03 07:13] LABS: CALCIUM LEVEL 7.7 MG/DL (8.3-10.6); CK-MB VALUE MASS 4.7 NG/ML (<3.6); CREATININE FOR GFR 1.75 MG/DL (0.70-1.30); GLOMERULAR FILTRATION RATE 40.5 (>42); MAGNESIUM LEVEL 1.5 MG/DL (1.8-2.4); POTASSIUM SERUM 4.5 MMOL/L (3.5-5.1)
[2023-12-03 07:14] LABS: FREE T4 0.8 NG/DL (0.89-1.76)
[2023-12-03 07:15] LABS: THYROID STIMULATING HORMONE 0.496 uIU/ML (0.55-4.78)
[2023-12-03 07:23] LABS: MB/CK RELATIVE INDEX 1.16 (< OR =4)
[2023-12-03 07:50] LABS: ANISOCYTOSIS 1+; LYMPHOCYTES 3 % (16-44); MONOCYTES 6 % (0-5); NEUTROPHILS 88 % (28-66); PLATELET ESTIMATE DECREASED (NORMAL)
[2023-12-03 07:51] LABS: MICROCYTOSIS 1+
[2023-12-03 08:18] VITALS: BP 123/69; TEMP 98.1; O2SAT 96
[2023-12-03] MEDS: METOPROLOL SUCC *XL* 25MG TAB (TopROL *XL*) PO SCH (08:24)
[2023-12-03] MEDS: CYANOCOBALAMIN 500 MCG TAB PO SCH (08:24)
[2023-12-03] MEDS: ASPIRIN 81MG ENTERIC TABLET PO SCH (08:24)
[2023-12-03] MEDS: MAG SULF 1GM/100ML (MAG RUN) 1 GM in IV 1 EA IV SCH (08:26)
[2023-12-03] MEDS: NORCO, ANEXSIA 5/325MG TABLET (HYDROcodone/ACETAMINOPHEN) PO PRN (09:34)
[2023-12-03 11:40] LABS: INR 1.12; PARTIAL THROMBOPLASTIN TIME 27.5 SECONDS (24.8-34.2); PROTHROMBIN TIME 14.1 SECONDS (12.5-14.5)
[2023-12-03] MEDS: APIXABAN 5 MG TAB (ELIQUIS) PO SCH (12:12)
[2023-12-03 16:11] VITALS: BP 117/58; TEMP 98.6; O2SAT 96
[2023-12-03 18:00] VITALS: BP 147/68; TEMP 98.8; O2SAT 96
[2023-12-03] MEDS: TRIAMCINOLONE ACET 0.1% OINTMENT 15GM EXT SCH (21:45)
[2023-12-03] MEDS: DOXYCYCLINE HYCLATE 100MG TABLET PO SCH (21:45)
[2023-12-04] VITALS: BP 110/59; TEMP 98.6; O2SAT 97
[2023-12-04 04:00] VITALS: BP 124/65; TEMP 97.5; O2SAT 98
[2023-12-04 06:36] LABS: C REACTIVE PROTEIN QUANTITATIV 18.3 MG/DL (<1.0)
[2023-12-04 06:37] LABS: CALCIUM LEVEL 7.7 MG/DL (8.3-10.6); CREATININE FOR GFR 2.13 MG/DL (0.70-1.30); GLOMERULAR FILTRATION RATE 32.3 (>42); MAGNESIUM LEVEL 2.3 MG/DL (1.8-2.4)
[2023-12-04 07:32] VITALS: BP 137/65; TEMP 97.4; O2SAT 98
[2023-12-04 08:43] LABS: BASO % 0.1 % (0.0-1.0); HEMOGLOBIN 11.6 g/dl (13.5-17.5); LYMPH # 0.3 10^3/uL (1.5-5.0); LYMPH % 2.3 % (24.0-44.0); MEAN CORPUSCULAR HGB CONC 31.4 g/dl (32.0-36.5); MEAN CORPUSCULAR VOLUME 101.9 fl (80.0-96.0); MONO # 0.4 10^3/uL (0.0-0.8); NEUTROPHILS # 12.8 10^3/uL (1.5-8.5); PLATELET COUNT, AUTOMATED 122 10^3/uL (150-450); RED BLOOD COUNT 3.63 10^6/uL (4.30-6.10); WHITE BLOOD COUNT 13.8 10^3/uL (4.0-10.0)
[2023-12-04] MEDS: NS 1,000 ML IV SCH (08:51)
[2023-12-04 09:08] LABS: PROCALCITONIN 11.71 ng/ml
[2023-12-04] MEDS ORDERED: ELIQ5TAB PO (10:43)
[2023-12-04 12:07] VITALS: BP 135/78; TEMP 97.5; O2SAT 93
[2023-12-04 15:53] VITALS: BP 125/61; TEMP 97.3; O2SAT 96
[2023-12-04 17:14] LABS: MYCOPLASMA PNEUMONIAE IgG 930 U/mL (0-99); MYCOPLASMA PNEUMONIAE IgM <770 U/mL (0-769)
[2023-12-04 20:50] VITALS: BP 152/64; TEMP 97.8; O2SAT 90
[2023-12-04] MEDS: methylPREDNISolone 40MG 1ML VIAL IV SCH (21:03)
[2023-12-05] VITALS (18 sets, daily range): BP systolic 128–160; BP diastolic 63–95; TEMP 98–98.4; O2SAT 89–99
[2023-12-05 02:28] LABS: ABG HCO3 28.3 MMOL/L (22.0-26.0); ABG PARTIAL PRESSURE O2 50.7 mmHg (75.0-100.0); ABG STANDARD HCO3 24.3 MMOL/L. (22.0-26.0); ABG TOTAL CO2 30.3 MMOL/L (23.0-31.0); ABG pH (ARTERIAL) 7.258 UNITS (7.350-7.450)
[2023-12-05 02:29] LABS: ABG PARTIAL PRESSURE CO2 64.9 mmHg (35.0-45.0)
[2023-12-05] MEDS: FUROSEMIDE 40MG/4ML VIAL IV STA (03:57)
[2023-12-05 05:10] LABS: BASO % 0.1 % (0.0-1.0); EOS % 0.1 % (0.0-3.0); HEMATOCRIT 35.3 % (42.0-52.0); LYMPH # 0.4 10^3/uL (1.5-5.0); LYMPH % 3.7 % (24.0-44.0); MEAN CORPUSCULAR HEMOGLOBIN 31.4 pg (27.0-33.0); MEAN CORPUSCULAR HGB CONC 31.2 g/dl (32.0-36.5); MEAN CORPUSCULAR VOLUME 100.9 fl (80.0-96.0); MONO # 0.9 10^3/uL (0.0-0.8); MONO % 7.6 % (2.0-8.0); NEUTROPHILS # 10.1 10^3/uL (1.5-8.5); NEUTROPHILS % 86.4 % (36.0-66.0); PLATELET COUNT, AUTOMATED 136 10^3/uL (150-450); WHITE BLOOD COUNT 11.7 10^3/uL (4.0-10.0)
[2023-12-05 05:33] LABS: C REACTIVE PROTEIN QUANTITATIV 13.9 MG/DL (<1.0)
[2023-12-05 05:34] LABS: CALCIUM LEVEL 7.8 MG/DL (8.3-10.6); CREATININE FOR GFR 2.04 MG/DL (0.70-1.30); MAGNESIUM LEVEL 2.2 MG/DL (1.8-2.4); POTASSIUM SERUM 4.4 MMOL/L (3.5-5.1)
[2023-12-05 05:55] LABS: ABG HCO3 25.8 MMOL/L (22.0-26.0); ABG O2 SATURATION 98.9 % (95.0-99.0); ABG PARTIAL PRESSURE CO2 58.9 mmHg (35.0-45.0); ABG PARTIAL PRESSURE O2 163.5 mmHg (75.0-100.0); ABG STANDARD HCO3 22.8 MMOL/L. (22.0-26.0); ABG TOTAL CO2 27.6 MMOL/L (23.0-31.0)
[2023-12-05 10:19] LABS: VENOUS BASE EXCESS -0.4 (-2.0-2.0); VENOUS HCO3 27.2 MMOL/L (23.0-27.0); VENOUS O2 SATURATION 97.7 % (60.0-80.0); VENOUS PARTIAL PRESSURE CO2 58.7 mmHg (38.0-50.0); VENOUS PARTIAL PRESSURE O2 100.4 mmHg (30.0-50.0); VENOUS PH 7.284 UNITS (7.330-7.430); VENOUS STANDARD HCO3 24.2 MMOL/L
[2023-12-05] MEDS: PANTOPRAZOLE 40MG VIAL IV SCH (11:21)
[2023-12-05 18:07] LABS: ABG BASE EXCESS 3.8 (-2.0-2.0); ABG HCO3 30.2 MMOL/L (22.0-26.0); ABG O2 SATURATION 89.9 % (95.0-99.0); ABG PARTIAL PRESSURE CO2 54.5 mmHg (35.0-45.0); ABG PARTIAL PRESSURE O2 56.3 mmHg (75.0-100.0); ABG STANDARD HCO3 27.7 MMOL/L. (22.0-26.0); ABG TOTAL CO2 31.9 MMOL/L (23.0-31.0); ABG pH (ARTERIAL) 7.362 UNITS (7.350-7.450)
[2023-12-05] MEDS: dexmedeTOMidine 200 MCG in IV 1 EA IV SCH (19:31)
[2023-12-06] VITALS (7 sets, daily range): BP systolic 117–152; BP diastolic 63–78; TEMP 97.9–98.1; O2SAT 91–99
[2023-12-06 05:03] LABS: VENOUS BASE EXCESS 3.1 (-2.0-2.0); VENOUS HCO3 30.9 MMOL/L (23.0-27.0); VENOUS O2 SATURATION 99.1 % (60.0-80.0); VENOUS PARTIAL PRESSURE CO2 63.9 mmHg (38.0-50.0); VENOUS PARTIAL PRESSURE O2 172.9 mmHg (30.0-50.0); VENOUS PH 7.303 UNITS (7.330-7.430); VENOUS STANDARD HCO3 27.3 MMOL/L; VENOUS TOTAL CO2 32.9 MMOL/L (24.0-28.0)
[2023-12-06 05:11] LABS: BASO % 0.1 % (0.0-1.0); EOS % 0.1 % (0.0-3.0); HEMATOCRIT 32.2 % (42.0-52.0); HEMOGLOBIN 9.9 g/dl (13.5-17.5); LYMPH # 0.4 10^3/uL (1.5-5.0); LYMPH % 6.1 % (24.0-44.0); MEAN CORPUSCULAR HEMOGLOBIN 30.9 pg (27.0-33.0); MEAN CORPUSCULAR HGB CONC 30.7 g/dl (32.0-36.5); MEAN CORPUSCULAR VOLUME 100.6 fl (80.0-96.0); MONO # 0.6 10^3/uL (0.0-0.8); MONO % 8.8 % (2.0-8.0); NEUTROPHILS # 5.8 10^3/uL (1.5-8.5); NEUTROPHILS % 83.6 % (36.0-66.0); PLATELET COUNT, AUTOMATED 132 10^3/uL (150-450); WHITE BLOOD COUNT 6.9 10^3/uL (4.0-10.0)
[2023-12-06 05:32] LABS: C REACTIVE PROTEIN QUANTITATIV 9.4 MG/DL (<1.0)
[2023-12-06 05:34] LABS: CALCIUM LEVEL 7.6 MG/DL (8.3-10.6); CREATININE FOR GFR 2.05 MG/DL (0.70-1.30); GLOMERULAR FILTRATION RATE 33.8 (>42); MAGNESIUM LEVEL 1.9 MG/DL (1.8-2.4); POTASSIUM SERUM 4.5 MMOL/L (3.5-5.1)
[2023-12-06] MEDS: D5W/LR 1,000 ML IV SCH (13:41)
[2023-12-06] MEDS ORDERED: SODIUM CHLORIDE 0.9% 3ML NEB SOLUTION FOR INHALATION INH ONE (14:00)
[2023-12-06] MEDS ORDERED: PILL CUTTER 1 EACH XX PRN (19:55)
[2023-12-06] MEDS ORDERED: OLANZapine ORAL DISINTEGRATING TAB 5MG SL ONE (20:00)
[2023-12-06] MEDS: OLANZapine ORAL DISINTEGRATING TAB 5MG PO ONE (22:48)
[2023-12-07] VITALS (13 sets, daily range): BP systolic 120–169; BP diastolic 63–99; TEMP 97.3–99.4; O2SAT 92–99
[2023-12-07 04:29] LABS: BASO % 0.2 % (0.0-1.0); EOS % 0.6 % (0.0-3.0); HEMATOCRIT 31.3 % (42.0-52.0); HEMOGLOBIN 9.9 g/dl (13.5-17.5); LYMPH # 0.3 10^3/uL (1.5-5.0); MEAN CORPUSCULAR HEMOGLOBIN 31.4 pg (27.0-33.0); MEAN CORPUSCULAR HGB CONC 31.6 g/dl (32.0-36.5); MEAN CORPUSCULAR VOLUME 99.4 fl (80.0-96.0); MONO # 0.7 10^3/uL (0.0-0.8); MONO % 10.9 % (2.0-8.0); NEUTROPHILS # 5.2 10^3/uL (1.5-8.5); NEUTROPHILS % 82.5 % (36.0-66.0); PLATELET COUNT, AUTOMATED 141 10^3/uL (150-450); RED BLOOD COUNT 3.15 10^6/uL (4.30-6.10); WHITE BLOOD COUNT 6.4 10^3/uL (4.0-10.0)
[2023-12-07 04:54] LABS: C REACTIVE PROTEIN QUANTITATIV 8.4 MG/DL (<1.0)
[2023-12-07 04:56] LABS: CALCIUM LEVEL 7.7 MG/DL (8.3-10.6); CREATININE FOR GFR 1.58 MG/DL (0.70-1.30); GLOMERULAR FILTRATION RATE 45.6 (>42); MAGNESIUM LEVEL 1.6 MG/DL (1.8-2.4); POTASSIUM SERUM 4.4 MMOL/L (3.5-5.1)
[2023-12-07] MEDS: D5W/0.45% SODIUM CHLORIDE 1,000 ML IV SCH (10:51)
[2023-12-07] MEDS: SODIUM CHLORIDE 0.9% 3ML NEB SOLUTION FOR INHALATION INH SCH (13:13)
[2023-12-07] MEDS: LevoFLOXacin 750 MG TABLET PO SCH (20:14)
[2023-12-07] MEDS: MAG SULF 1GM/100ML (MAG RUN) 1 GM in IV 1 EA IV SCH (22:30)
[2023-12-08] VITALS (13 sets, daily range): BP systolic 147–181; BP diastolic 70–94; TEMP 97–98.4; O2SAT 93–100
[2023-12-08] MEDS: QUEtiapine FUMARATE 50MG TAB PO ONE (01:11)
[2023-12-08 04:30] LABS: BASO % 0.3 % (0.0-1.0); EOS # 0.1 10^3/uL (0.0-0.5); EOS % 1.2 % (0.0-3.0); HEMATOCRIT 31.3 % (42.0-52.0); HEMOGLOBIN 10.1 g/dl (13.5-17.5); LYMPH # 0.6 10^3/uL (1.5-5.0); LYMPH % 8.3 % (24.0-44.0); MEAN CORPUSCULAR HEMOGLOBIN 31.9 pg (27.0-33.0); MEAN CORPUSCULAR HGB CONC 32.3 g/dl (32.0-36.5); MEAN CORPUSCULAR VOLUME 98.7 fl (80.0-96.0); MONO # 0.7 10^3/uL (0.0-0.8); MONO % 10.5 % (2.0-8.0); NEUTROPHILS # 5.2 10^3/uL (1.5-8.5); NEUTROPHILS % 77.7 % (36.0-66.0); PLATELET COUNT, AUTOMATED 145 10^3/uL (150-450); RED BLOOD COUNT 3.17 10^6/uL (4.30-6.10); WHITE BLOOD COUNT 6.6 10^3/uL (4.0-10.0)
[2023-12-08 05:00] LABS: CALCIUM LEVEL 8.2 MG/DL (8.3-10.6); CREATININE FOR GFR 1.58 MG/DL (0.70-1.30); GLOMERULAR FILTRATION RATE 45.6 (>42); POTASSIUM SERUM 4.4 MMOL/L (3.5-5.1)
[2023-12-08] MEDS: predniSONE 20 MG TAB PO SCH (12:30)
[2023-12-08] MEDS: SYMBICORT 160/4.5MCG INHALER 6GM INH SCH (13:08)
[2023-12-08] MEDS: IPRATROPIUM 0.5MG/ALBUTEROL 2.5MG INH SOL UD 3ML (DUONEB) NEB SCH (13:17)
[2023-12-08] MEDS: **hydrALAZINE HCL** 25 MG TAB PO PRN (15:33)
[2023-12-08] MEDS ORDERED: hydrALAZINE 20MG/ML 1ML VIAL IV PRN (15:55)
[2023-12-08] MEDS: METOPROLOL TART 50 MG TAB PO SCH (20:48)
[2023-12-09] VITALS (7 sets, daily range): BP systolic 124–171; BP diastolic 58–89; TEMP 97–98.2; O2SAT 92–99
[2023-12-09 05:32] LABS: BASO % 0.2 % (0.0-1.0); EOS # 0.2 10^3/uL (0.0-0.5); EOS % 2.6 % (0.0-3.0); HEMATOCRIT 32.3 % (42.0-52.0); HEMOGLOBIN 10.3 g/dl (13.5-17.5); LYMPH # 0.8 10^3/uL (1.5-5.0); LYMPH % 13.7 % (24.0-44.0); MEAN CORPUSCULAR HEMOGLOBIN 31.4 pg (27.0-33.0); MEAN CORPUSCULAR HGB CONC 31.9 g/dl (32.0-36.5); MEAN CORPUSCULAR VOLUME 98.5 fl (80.0-96.0); MONO # 0.8 10^3/uL (0.0-0.8); NEUTROPHILS # 3.9 10^3/uL (1.5-8.5); NEUTROPHILS % 67.4 % (36.0-66.0); PLATELET COUNT, AUTOMATED 161 10^3/uL (150-450); RED BLOOD COUNT 3.28 10^6/uL (4.30-6.10); WHITE BLOOD COUNT 5.8 10^3/uL (4.0-10.0)
[2023-12-09 05:58] LABS: CALCIUM LEVEL 7.5 MG/DL (8.3-10.6); CREATININE FOR GFR 1.91 MG/DL (0.70-1.30); GLOMERULAR FILTRATION RATE 36.7 (>42); MAGNESIUM LEVEL 1.6 MG/DL (1.8-2.4); POTASSIUM SERUM 4.1 MMOL/L (3.5-5.1)
[2023-12-09] MEDS: MAG SULF 1GM/100ML (MAG RUN) 1 GM in IV 1 EA IV SCH (09:01)
[2023-12-09] MEDS: NS 1,000 ML IV SCH (10:07)
[2023-12-09] MEDS ORDERED: ELIQ5TAB PO (11:10)
[2023-12-09] MEDS: LIDOCAINE 5% (LIDODERM) PATCH TD SCH (12:49)
[2023-12-10 06:09] LABS: CALCIUM LEVEL 7.7 MG/DL (8.3-10.6); CREATININE FOR GFR 1.71 MG/DL (0.70-1.30); GLOMERULAR FILTRATION RATE 41.6 (>42); POTASSIUM SERUM 4.2 MMOL/L (3.5-5.1)
[2023-12-10 07:46] VITALS: BP 142/70; TEMP 97.3; O2SAT 96
[2023-12-10 07:52] VITALS: BP_SYST 103; BP_SYST 140; BP_DIAS 59; BP_DIAS 72; TEMP 97.4; O2SAT 96; O2SAT 97
[2023-12-10] MEDS: D5W 1,000 ML IV SCH (09:45)
[2023-12-10] MEDS: predniSONE 10MG TAB PO SCH (11:10)
[2023-12-10 12:08] LABS: CHLAMYDIA PNEUMONIAE IgM < 1:10 (< 1:10); CHLAMYDIA PSITTACI IgG <1:100 (< 1:100); CHLAMYDIA PSITTACI IgM < 1:10 (< 1:10); CHLAMYDIA TRACHOMATIS IgG <1:100 (< 1:100); CHLAMYDIA TRACHOMATIS IgM < 1:10 (< 1:10)
[2023-12-10 13:05] VITALS: BP 158/64; TEMP 98.2; O2SAT 94
[2023-12-10] MEDS: CEPACOL LOZENGE PO PRN (17:21)
[2023-12-10] MEDS: MORPHINE 2 MG/ML 1ML VIAL IV ONE (17:32)
[2023-12-10 19:19] LABS: CALCIUM LEVEL 7.9 MG/DL (8.3-10.6); CREATININE FOR GFR 1.47 MG/DL (0.70-1.30); GLOMERULAR FILTRATION RATE 49.6 (>42); POTASSIUM SERUM 4.5 MMOL/L (3.5-5.1)
[2023-12-10 20:20] VITALS: O2SAT 96
[2023-12-10 20:21] VITALS: BP 168/78; TEMP 98.4; O2SAT 95
[2023-12-10] MEDS: RAMELTEON 8 MG TAB (ROZEREM) PO PRN (20:25)
[2023-12-10 23:33] VITALS: O2SAT 90
[2023-12-11 03:31] VITALS: O2SAT 92
[2023-12-11 05:43] VITALS: BP 161/87; TEMP 98.1; O2SAT 91
[2023-12-11 07:55] LABS: CALCIUM LEVEL 7.7 MG/DL (8.3-10.6); CREATININE FOR GFR 1.48 MG/DL (0.70-1.30); GLOMERULAR FILTRATION RATE 49.2 (>42); POTASSIUM SERUM 4.2 MMOL/L (3.5-5.1)
[2023-12-11 09:05] VITALS: BP 156/73
[2023-12-11] MEDS ORDERED: LOPR1TAB6 PO (13:01)
[2023-12-11 14:00] VITALS: BP 147/65; TEMP 97.9; O2SAT 100
== END 2023-12-11 15:46 | disposition home health service (06) | DRG 871 ==
LOC: M ED 09:02 → EDBD 09:02 → M ED INP 16:11 → M PCU 21:51 → M ICU 12-05 03:25 → M PCU 12-09 00:32 → M MSPAV 12-10 13:05
PROVIDERS: ADMIT Internal Medicine; ATTEND Internal Medicine
DX: A41.52 Sepsis due to Pseudomonas (principal); G93.41 Metabolic encephalopathy; J96.22 Acute and chronic respiratory failure with hypercapnia; J15.1 Pneumonia due to Pseudomonas; J44.1 Chronic obstructive pulmonary disease with (acute) exacerbation; J96.11 Chronic respiratory failure with hypoxia; J44.0 Chronic obstructive pulmonary disease with (acute) lower respiratory infection; E87.20 Acidosis, unspecified; E87.0 Hyperosmolality and hypernatremia; N17.9 Acute kidney failure, unspecified; N18.30 Chronic kidney disease, stage 3 unspecified; I12.9 Hypertensive chronic kidney disease with stage 1 through stage 4 chronic kidney disease, or unspecified chronic kidney disease; F17.210 Nicotine dependence, cigarettes, uncomplicated; I48.91 Unspecified atrial fibrillation; R91.1 Solitary pulmonary nodule; Z92.3 Personal history of irradiation; F32.A Depression, unspecified; Z88.2 Allergy status to sulfonamides; Z79.899 Other long term (current) drug therapy; Z79.82 Long term (current) use of aspirin; R25.1 Tremor, unspecified; Z66 Do not resuscitate; L40.8 Other psoriasis; Z99.81 Dependence on supplemental oxygen; M25.512 Pain in left shoulder

== ENCOUNTER 2024-01-24 15:24 | Inpatient (IN) | payer OTHER, MEDICARE ==
[~2024-01-24] VITALS: Ht 172.7 cm; Wt 84.8 kg
[~2024-01-24 15:24] MED LIST changes: +AMLO1TAB25 PO; +B-12100020 PO; +BUPR-69 PO; +DOXY-323 PO; -DOXY-443 PO; +ELIQ5TAB PO; +HYDR-4429 PO; +LOPR1TAB6 PO; +THEO300T33 PO
[2024-01-24] MEDS: IPRATROPIUM 0.5MG/ALBUTEROL 2.5MG INH SOL UD 3ML (DUONEB) NEB ONE (16:17)
[2024-01-24] MEDS: ALBUTEROL SULFATE 2.5MG/0.5ML INH NEB SOLN INH ONE (16:17)
[2024-01-24 16:24] LABS: VENOUS BASE EXCESS 3.4 (-2.0-2.0); VENOUS O2 SATURATION 98.5 % (60.0-80.0); VENOUS PARTIAL PRESSURE CO2 62.2 mmHg (38.0-50.0); VENOUS PH 7.315 UNITS (7.330-7.430); VENOUS STANDARD HCO3 27.5 MMOL/L; VENOUS TOTAL CO2 32.9 MMOL/L (24.0-28.0)
[2024-01-24 16:30] LABS: BASO % 0.4 % (0.0-1.0); EOS # 0.2 10^3/uL (0.0-0.5); EOS % 2.4 % (0.0-3.0); HEMATOCRIT 34.4 % (42.0-52.0); LYMPH # 0.6 10^3/uL (1.5-5.0); LYMPH % 7.1 % (24.0-44.0); MEAN CORPUSCULAR HEMOGLOBIN 31.7 pg (27.0-33.0); MEAN CORPUSCULAR VOLUME 99.1 fl (80.0-96.0); MONO # 0.6 10^3/uL (0.0-0.8); MONO % 7.2 % (2.0-8.0); NEUTROPHILS # 6.7 10^3/uL (1.5-8.5); NEUTROPHILS % 82.3 % (36.0-66.0); PLATELET COUNT, AUTOMATED 145 10^3/uL (150-450); RED BLOOD COUNT 3.47 10^6/uL (4.30-6.10); WHITE BLOOD COUNT 8.2 10^3/uL (4.0-10.0)
[2024-01-24] MEDS: methylPREDNISolone 125MG 2ML VIAL IV ONE (16:58)
[2024-01-24 17:02] LABS: CK-MB VALUE MASS < 1.0 NG/ML (<3.6)
[2024-01-24 17:04] LABS: ALBUMIN 3.5 G/DL (3.2-5.2); ALKALINE PHOSPHATASE 91 U/L (46-116); ALT/SGPT 15 U/L (7.0-40); AST/SGOT < 8 U/L (<34); BILIRUBIN,DIRECT < 0.1 MG/DL (<0.4); BILIRUBIN,TOTAL < 0.2 MG/DL (0.3-1.2); BLOOD UREA NITROGEN 34 MG/DL (9-23); CALCIUM LEVEL 8.2 MG/DL (8.3-10.6); CARBON DIOXIDE LEVEL 36 MMOL/L (20-31); CHLORIDE LEVEL 105 MMOL/L (98-107); CPK CREATINE PHOSPHOKINASE 28 U/L (46-171); GLUCOSE, FASTING 160 MG/DL (74-106); MB/CK RELATIVE INDEX 3.57 (< OR =4); POTASSIUM SERUM 4.3 MMOL/L (3.5-5.1); SODIUM LEVEL 144 MMOL/L (136-145); TOTAL PROTEIN 6.6 G/DL (5.7-8.2)
[2024-01-24] MEDS ORDERED: ISOVUE-370 76% 100ML VIAL As Ordered ONE (17:49)
[2024-01-24 18:33] LABS: CK-MB VALUE MASS < 1.0 NG/ML (<3.6)
[2024-01-24 18:36] LABS: CPK CREATINE PHOSPHOKINASE 34 U/L (46-171); MB/CK RELATIVE INDEX 2.94 (< OR =4)
[2024-01-24] MEDS ORDERED: HYDR-3715 PO (20:12)
[2024-01-24] MEDS ORDERED: BUPR-71 PO (20:12)
[2024-01-24] MEDS ORDERED: ELIQ5TAB PO (20:12)
[2024-01-24] MEDS ORDERED: ACET650T15 PO (20:14)
[2024-01-24] MEDS ORDERED: SPIR1AER IN (20:14)
[2024-01-24] MEDS ORDERED: FLUT1BLS2 IH (20:14)
[2024-01-24] MEDS ORDERED: HOME MED LIST COMPLETE! XX SCH (20:15)
[2024-01-24 20:27] LABS: MAGNESIUM LEVEL 1.5 MG/DL (1.8-2.4)
[2024-01-24] MEDS: ALBUTEROL SULFATE 2.5MG/0.5ML INH NEB SOLN NEB PRN (21:11)
[2024-01-24] MEDS: IPRATROPIUM 0.5MG/ALBUTEROL 2.5MG INH SOL UD 3ML (DUONEB) NEB PRN (21:11)
[2024-01-24] MEDS: MAGNESIUM OXIDE 400MG TAB (MAG-OX) PO SCH (23:28)
[2024-01-24] MEDS: MAG SULF 1GM/100ML (MAG RUN) 1 GM in IV 1 EA IV SCH (23:28)
[2024-01-24] MEDS ORDERED: ACETAMINOPHEN 650MG ER TAB (TYLENOL ARTHRITIS) PO PRN (23:50)
[2024-01-24 23:51] VITALS: BP 172/88; TEMP 97.9; O2SAT 92
[2024-01-25] VITALS (7 sets, daily range): BP systolic 140–170; BP diastolic 74–88; TEMP 97.7–98.2; O2SAT 93–95
[2024-01-25] MEDS ORDERED: PILL CUTTER 1 EACH XX PRN (00:50)
[2024-01-25] MEDS: CEFEPIME HCL 1 GM in D5W 50 ML IV SCH (01:29)
[2024-01-25] MEDS: methylPREDNISolone 125MG 2ML VIAL IV SCH (01:29)
[2024-01-25] MEDS: NORCO, ANEXSIA 5/325MG TABLET (HYDROcodone/ACETAMINOPHEN) PO PRN (01:39)
[2024-01-25] MEDS: TIOTROPIUM INHALER/CAPSULE (SPIRIVA) INH SCH (07:16)
[2024-01-25] MEDS: ADVAIR HFA 230/21MCG INHALER INH SCH (07:17)
[2024-01-25 07:29] LABS: HEMATOCRIT 33.5 % (42.0-52.0); HEMOGLOBIN 10.7 g/dl (13.5-17.5); MEAN CORPUSCULAR HEMOGLOBIN 30.7 pg (27.0-33.0); MEAN CORPUSCULAR HGB CONC 31.9 g/dl (32.0-36.5); PLATELET COUNT, AUTOMATED 148 10^3/uL (150-450); RED BLOOD COUNT 3.49 10^6/uL (4.30-6.10); WHITE BLOOD COUNT 6.7 10^3/uL (4.0-10.0)
[2024-01-25 07:51] LABS: CALCIUM LEVEL 8.8 MG/DL (8.3-10.6); CREATININE FOR GFR 1.38 MG/DL (0.70-1.30); GLOMERULAR FILTRATION RATE 53.3 (>42); POTASSIUM SERUM 4.6 MMOL/L (3.5-5.1)
[2024-01-25] MEDS ORDERED: METOPROLOL 5 MG/5 ML VIAL As Ordered ONE (08:45)
[2024-01-25] MEDS: ASPIRIN 81MG ENTERIC TABLET PO SCH (08:47)
[2024-01-25] MEDS ORDERED: METOPROLOL 5 MG/5 ML VIAL IV SCH (08:55)
[2024-01-25] MEDS: VANICREAM MOISTURIZING SKIN CREAM 113GM TUBE TOP SCH (09:37)
[2024-01-25] MEDS: APIXABAN 5 MG TAB (ELIQUIS) PO SCH (09:37)
[2024-01-25] MEDS: buPROPion **SR TABLET** (ZYBAN) 150MG PO SCH (09:37)
[2024-01-25] MEDS: DOCUSATE SODIUM 100MG CAPSULE PO SCH (09:37)
[2024-01-25] MEDS: PANTOPRAZOLE 40MG VIAL IV SCH (09:38)
[2024-01-25] MEDS: PRIMIDONE 50MG TAB PO SCH (09:38)
[2024-01-25] MEDS ORDERED: LEVALBUTEROL 1.25MG 0.5ML CONCENTRATE NEB INH PRN (10:45)
[2024-01-25] MEDS: BUDESONIDE 0.5 MG/2 ML INHALATION SUSPENSION NEB SCH (11:13)
[2024-01-25] MEDS: IPRATROPIUM 0.02% SOLN 0.5MG 2.5ML NEB INH SCH (11:13)
[2024-01-25] MEDS: LEVALBUTEROL 1.25MG 0.5ML CONCENTRATE NEB INH SCH (11:13)
[2024-01-25] MEDS: FORMOTEROL FUMARATE 20 MCG/2 ML INHALATION SOLUTION (PERFOROMIST) INH SCH (19:42)
[2024-01-25] MEDS: MONTELUKAST 10 MG TAB PO SCH (20:52)
[2024-01-25] MEDS: ROSUVASTATIN 10 MG TAB (CRESTOR) PO SCH (20:52)
[2024-01-26] VITALS (8 sets, daily range): BP systolic 112–159; BP diastolic 64–86; TEMP 97.4–98.8; O2SAT 94–99
[2024-01-26] MEDS: LevoFLOXacin 500 MG TABLET PO ONE (08:24)
[2024-01-26] MEDS: PANTOPRAZOLE 40MG TAB (PROTONIX) PO SCH (08:24)
[2024-01-26 08:49] LABS: HEMATOCRIT 32.8 % (42.0-52.0); HEMOGLOBIN 10.6 g/dl (13.5-17.5); MEAN CORPUSCULAR HEMOGLOBIN 31.6 pg (27.0-33.0); MEAN CORPUSCULAR HGB CONC 32.3 g/dl (32.0-36.5); MEAN CORPUSCULAR VOLUME 97.9 fl (80.0-96.0); PLATELET COUNT, AUTOMATED 153 10^3/uL (150-450); RED BLOOD COUNT 3.35 10^6/uL (4.30-6.10); WHITE BLOOD COUNT 7.6 10^3/uL (4.0-10.0)
[2024-01-26 09:30] LABS: PROCALCITONIN 0.15 ng/ml
[2024-01-26 09:48] LABS: ALBUMIN 3.2 G/DL (3.2-5.2); ALKALINE PHOSPHATASE 72 U/L (46-116); ALT/SGPT 15 U/L (7.0-40); AST/SGOT < 8 U/L (<34); BILIRUBIN,TOTAL 0.2 MG/DL (0.3-1.2); BLOOD UREA NITROGEN 40 MG/DL (9-23); CALCIUM LEVEL 8.6 MG/DL (8.3-10.6); CARBON DIOXIDE LEVEL 37 MMOL/L (20-31); CHLORIDE LEVEL 102 MMOL/L (98-107); CREATININE FOR GFR 1.32 MG/DL (0.70-1.30); GLOMERULAR FILTRATION RATE 56.1 (>42); GLUCOSE, FASTING 118 MG/DL (74-106); MAGNESIUM LEVEL 1.9 MG/DL (1.8-2.4); PHOSPHORUS LEVEL 3.8 MG/DL (2.4-5.1); POTASSIUM SERUM 4.8 MMOL/L (3.5-5.1); SODIUM LEVEL 140 MMOL/L (136-145); TOTAL PROTEIN 6.1 G/DL (5.7-8.2)
[2024-01-26] MEDS: LevoFLOXacin 250 MG TABLET PO ONE (12:35)
[2024-01-26] MEDS: CEPACOL LOZENGE PO PRN (12:35)
[2024-01-26] MEDS: methylPREDNISolone 125MG 2ML VIAL IV SCH (12:35)
[2024-01-27 06:00] VITALS: BP 165/88; TEMP 97.9; O2SAT 96
[2024-01-27] MEDS ORDERED: LevoFLOXacin 500 MG TABLET PO SCH (06:00)
[2024-01-27 08:24] LABS: HEMATOCRIT 37.4 % (42.0-52.0); HEMOGLOBIN 11.8 g/dl (13.5-17.5); MEAN CORPUSCULAR HEMOGLOBIN 31.4 pg (27.0-33.0); MEAN CORPUSCULAR HGB CONC 31.6 g/dl (32.0-36.5); MEAN CORPUSCULAR VOLUME 99.5 fl (80.0-96.0); PLATELET COUNT, AUTOMATED 174 10^3/uL (150-450); RED BLOOD COUNT 3.76 10^6/uL (4.30-6.10); WHITE BLOOD COUNT 8.5 10^3/uL (4.0-10.0)
[2024-01-27 08:52] LABS: ALBUMIN 3.4 G/DL (3.2-5.2); BILIRUBIN,TOTAL 0.2 MG/DL (0.3-1.2); CALCIUM LEVEL 8.7 MG/DL (8.3-10.6); CREATININE FOR GFR 1.36 MG/DL (0.70-1.30); GLOMERULAR FILTRATION RATE 54.2 (>42); POTASSIUM SERUM 4.9 MMOL/L (3.5-5.1); TOTAL PROTEIN 6.7 G/DL (5.7-8.2)
[2024-01-27] MEDS: LevoFLOXacin 750 MG TABLET PO SCH (09:05)
[2024-01-27] MEDS: predniSONE 20 MG TAB PO SCH (09:06)
[2024-01-27 14:00] VITALS: BP 146/66; TEMP 98.1; O2SAT 95
[2024-01-27 20:00] VITALS: BP 161/76; TEMP 98.1; O2SAT 95
[2024-01-28 05:23] VITALS: BP 139/71; TEMP 97.9; O2SAT 96
[2024-01-28 06:40] LABS: HEMATOCRIT 36.4 % (42.0-52.0); HEMOGLOBIN 11.6 g/dl (13.5-17.5); MEAN CORPUSCULAR HEMOGLOBIN 31.5 pg (27.0-33.0); MEAN CORPUSCULAR HGB CONC 31.9 g/dl (32.0-36.5); MEAN CORPUSCULAR VOLUME 98.9 fl (80.0-96.0); PLATELET COUNT, AUTOMATED 159 10^3/uL (150-450); RED BLOOD COUNT 3.68 10^6/uL (4.30-6.10); WHITE BLOOD COUNT 6.8 10^3/uL (4.0-10.0)
[2024-01-28 07:06] LABS: ALBUMIN 3.2 G/DL (3.2-5.2); BILIRUBIN,TOTAL 0.2 MG/DL (0.3-1.2); CALCIUM LEVEL 8.8 MG/DL (8.3-10.6); CREATININE FOR GFR 1.41 MG/DL (0.70-1.30); TOTAL PROTEIN 6.1 G/DL (5.7-8.2)
[2024-01-28] MEDS ORDERED: PANT40TA29 PO (07:15)
[2024-01-28] MEDS ORDERED: COLA100C5 PO (07:15)
[2024-01-28] MEDS ORDERED: LEVO1TAB40 PO (07:15)
[2024-01-28] MEDS ORDERED: MAGN400T2 PO (07:15)
[2024-01-28 12:05] VITALS: BP 180/88
[2024-01-28] MEDS: METOPROLOL TART 25 MG TABLET PO ONE (12:05)
[2024-01-28 12:41] VITALS: BP 156/73; TEMP 98.2; O2SAT 94
== END 2024-01-28 15:07 | disposition home or self-care (01) | DRG 191 ==
LOC: M ED 15:24 → EEVIPCON 21:02 → M ED INP 21:02 → M PCU 23:40 → M MSPAV 01-26 16:46
PROVIDERS: ADMIT Internal Medicine; ATTEND Internal Medicine
DX: J44.1 Chronic obstructive pulmonary disease with (acute) exacerbation (principal); I47.20 Ventricular tachycardia, unspecified; J96.11 Chronic respiratory failure with hypoxia; J96.12 Chronic respiratory failure with hypercapnia; N18.30 Chronic kidney disease, stage 3 unspecified; I12.9 Hypertensive chronic kidney disease with stage 1 through stage 4 chronic kidney disease, or unspecified chronic kidney disease; F32.A Depression, unspecified; I48.0 Paroxysmal atrial fibrillation; G47.33 Obstructive sleep apnea (adult) (pediatric); E83.42 Hypomagnesemia; Z92.3 Personal history of irradiation; Z99.81 Dependence on supplemental oxygen; Z79.01 Long term (current) use of anticoagulants; R25.1 Tremor, unspecified; L40.8 Other psoriasis; Z79.899 Other long term (current) drug therapy; Z79.82 Long term (current) use of aspirin; Z88.2 Allergy status to sulfonamides; Z87.891 Personal history of nicotine dependence; B97.29 Other coronavirus as the cause of diseases classified elsewhere

== ENCOUNTER 2024-04-01 09:41 | Emergency (ER) | payer OTHER, MEDICARE ==
[~2024-04-01] VITALS: Ht 172.7 cm; Wt 85.0 kg
[~2024-04-01 09:41] MED LIST changes: +ACET650T15 PO; +BUPR-71 PO; +COLA100C5 PO; +FLUT1BLS2 IH; +HYDR-3715 PO; +LEVO1TAB40 PO; +MAGN400T2 PO; +SPIR1AER IN
[2024-04-01] MEDS: TRANEXAMIC ACID 100 MG/ML 10ML VIAL ONE (10:20)
[2024-04-01] MEDS: OXYMETAZOLINE 0.05% NASAL SPRAY (AFRIN) ONE (10:20)
[2024-04-01 10:38] LABS: BASO % 0.5 % (0.0-1.0); EOS # 0.3 10^3/uL (0.0-0.5); EOS % 3.4 % (0.0-3.0); HEMATOCRIT 33.6 % (42.0-52.0); HEMOGLOBIN 10.7 g/dl (13.5-17.5); LYMPH % 14.3 % (24.0-44.0); MEAN CORPUSCULAR HEMOGLOBIN 30.7 pg (27.0-33.0); MEAN CORPUSCULAR HGB CONC 31.8 g/dl (32.0-36.5); MEAN CORPUSCULAR VOLUME 96.6 fl (80.0-96.0); MONO # 0.7 10^3/uL (0.0-0.8); MONO % 8.9 % (2.0-8.0); NEUTROPHILS # 5.2 10^3/uL (1.5-8.5); NEUTROPHILS % 71.1 % (36.0-66.0); PLATELET COUNT, AUTOMATED 222 10^3/uL (150-450); RED BLOOD COUNT 3.48 10^6/uL (4.30-6.10); WHITE BLOOD COUNT 7.3 10^3/uL (4.0-10.0)
[2024-04-01 10:49] LABS: INR 1.26; PARTIAL THROMBOPLASTIN TIME 32.6 SECONDS (24.8-34.2); PROTHROMBIN TIME 15.5 SECONDS (12.5-14.5)
[2024-04-01 11:01] LABS: CALCIUM LEVEL 8.2 MG/DL (8.3-10.6); CREATININE FOR GFR 1.57 MG/DL (0.70-1.30); POTASSIUM SERUM 4.4 MMOL/L (3.5-5.1)
[2024-04-01] MEDS: ACETAMINOPHEN TAB 650MG DOSE (2X325MG) PO ONE (11:19)
[2024-04-01] MEDS: IPRATROPIUM 0.5MG/ALBUTEROL 2.5MG INH SOL UD 3ML (DUONEB) NEB ONE (11:45)
[2024-04-01 12:30] VITALS: O2SAT 98
[2024-04-01 12:55] VITALS: BP 151/96; TEMP 96; O2SAT 98
== END 2024-04-01 13:20 | disposition home or self-care (01) ==
LOC: M ED 09:41 → EDBD 09:41 → M ED 13:20
DX: R04.0 Epistaxis (principal); I10 Essential (primary) hypertension; J44.9 Chronic obstructive pulmonary disease, unspecified; Z85.118 Personal history of other malignant neoplasm of bronchus and lung; Z79.01 Long term (current) use of anticoagulants; Z99.81 Dependence on supplemental oxygen; Z88.2 Allergy status to sulfonamides

== ENCOUNTER → 2024-04-19 | Outpatient (CLI) | payer MEDICARE, OTHER | LOC: M SOG 07:58 | PROVIDERS: ATTEND Physician Assistant | DX: M25.512 Pain in left shoulder (principal) ==

== ENCOUNTER → 2024-06-03 | Outpatient (CLI) | payer MEDICARE, OTHER ==
[~2024-06-03] MED LIST changes: -DOXY-323 PO; +DOXY-441 PO; -ROSU20TA61 PO; +ROSU20TA86 PO
== END ==
LOC: M RAD 13:40
PROVIDERS: ATTEND Radiology Radiation Oncology
DX: C34.11 Malignant neoplasm of upper lobe, right bronchus or lung (principal); J90 Pleural effusion, not elsewhere classified

== ENCOUNTER → 2024-06-17 | Outpatient (REF) | payer OTHER | LOC: M LAB REF 11:20 | PROVIDERS: ATTEND Internal Medicine Pulmonary Disease | DX: J44.0 Chronic obstructive pulmonary disease with (acute) lower respiratory infection (principal) ==

== ENCOUNTER → 2024-07-07 | Outpatient (CLI) | payer OTHER, MEDICARE | LOC: M RAD 11:43 | PROVIDERS: ATTEND Nurse Practitioner Family | DX: N20.0 Calculus of kidney (principal) ==

== ENCOUNTER → 2024-07-15 | Outpatient (CLI) | payer MEDICARE, OTHER | LOC: M RAD 14:48 | PROVIDERS: ATTEND Internal Medicine Pulmonary Disease | DX: J44.0 Chronic obstructive pulmonary disease with (acute) lower respiratory infection (principal); J90 Pleural effusion, not elsewhere classified ==

== ENCOUNTER → 2024-08-04 | Outpatient (CLI) | payer OTHER | LOC: M LAB 09:13 | PROVIDERS: ATTEND Internal Medicine Pulmonary Disease | DX: J96.92 Respiratory failure, unspecified with hypercapnia (principal) ==

== ENCOUNTER → 2024-08-20 | Outpatient (CLI) | payer OTHER | LOC: M LAB 11:06 | PROVIDERS: ATTEND Internal Medicine Pulmonary Disease | DX: J96.92 Respiratory failure, unspecified with hypercapnia (principal) ==

== ENCOUNTER → 2024-09-05 | Outpatient (CLI) | payer OTHER, MEDICARE | LOC: M LAB 11:05 | PROVIDERS: ATTEND Internal Medicine Pulmonary Disease | DX: J96.92 Respiratory failure, unspecified with hypercapnia (principal) ==

== ENCOUNTER → 2024-09-26 | Outpatient (CLI) | payer MEDICAID, MEDICARE, OTHER | LOC: M LAB 10:22 | PROVIDERS: ATTEND Internal Medicine Pulmonary Disease | DX: J44.0 Chronic obstructive pulmonary disease with (acute) lower respiratory infection (principal) ==

== ENCOUNTER → 2024-10-13 | Outpatient (CLI) | payer OTHER, MEDICARE | LOC: M LAB 11:50 | PROVIDERS: ATTEND Internal Medicine Pulmonary Disease | DX: J44.0 Chronic obstructive pulmonary disease with (acute) lower respiratory infection (principal) ==

== ENCOUNTER → 2024-11-25 | Outpatient (CLI) | payer MEDICARE, OTHER | LOC: M RAD 14:29 | PROVIDERS: ATTEND Nurse Practitioner Family | DX: I71.40 Abdominal aortic aneurysm, without rupture, unspecified (principal) ==

== ENCOUNTER → 2024-12-15 | Outpatient (CLI) | payer OTHER | LOC: M RAD 10:43 | PROVIDERS: ATTEND Internal Medicine Pulmonary Disease | DX: J44.0 Chronic obstructive pulmonary disease with (acute) lower respiratory infection (principal) ==

== ENCOUNTER → 2025-04-04 | Outpatient (CLI) | payer MEDICARE, OTHER ==
[~2025-04-04] MED LIST changes: +ACET-1515 PO; -ACET650T15 PO; +AMLO-751 PO; -AMLO10TA PO; +HYDR12.510 PO; -HYDR12CA PO
== END ==
LOC: M RAD 10:49
PROVIDERS: ATTEND Internal Medicine Pulmonary Disease
DX: J44.0 Chronic obstructive pulmonary disease with (acute) lower respiratory infection (principal); R91.8 Other nonspecific abnormal finding of lung field; R09.02 Hypoxemia

== ENCOUNTER → 2025-04-25 | Outpatient (CLI) | payer OTHER, MEDICARE, MEDICAID | LOC: M SOG 06:53 | PROVIDERS: ATTEND Physician Assistant | DX: M25.512 Pain in left shoulder (principal) ==

== ENCOUNTER → 2025-06-20 | Outpatient (CLI) | payer OTHER, MEDICARE, MEDICAID | LOC: M LAB 14:31 | PROVIDERS: ATTEND Internal Medicine Pulmonary Disease | DX: J44.0 Chronic obstructive pulmonary disease with (acute) lower respiratory infection (principal); J22 Unspecified acute lower respiratory infection ==

== ENCOUNTER → 2025-07-19 | Outpatient (CLI) | payer OTHER | LOC: M LAB 14:36 | PROVIDERS: ATTEND Physician Assistant | DX: D48.5 Neoplasm of uncertain behavior of skin (principal) ==

== ENCOUNTER → 2025-08-07 | Outpatient (CLI) | payer MEDICARE, OTHER | LOC: M RAD 12:43 | PROVIDERS: ATTEND Nurse Practitioner Family | DX: R93.89 Abnormal findings on diagnostic imaging of other specified body structures (principal); J43.9 Emphysema, unspecified; R91.8 Other nonspecific abnormal finding of lung field; R91.1 Solitary pulmonary nodule; I25.10 Atherosclerotic heart disease of native coronary artery without angina pectoris; I70.0 Atherosclerosis of aorta ==